=== PATIENT | male | born 1940 | race Caucasian/White ===

== ENCOUNTER 2019-12-25 14:11 | Inpatient (IN) | payer MEDICARE, OTHER ==
--- OUTSIDE RECORDS SUMMARY | 2019-12-25 14:14 | XMS REPORT ---
:1940 Author Organization [facility] t Address [address] [place] [address] Care Team Providers Name Role Phone Unavailable Unavailable Unavailable Problems Condition Condition Condition Status Onset Resolution Last Treatin g Comments Name Details Category Date Date Treatment Clinician Date Abnormal CT Abnormal CT Problem Active scan scan Primary Primary Diagnosis Active insomnia insomnia Floaters Floaters Problem Active Anxiety Anxiety Problem Active Hyperlipide Hyperlipide Problem Active hermila hermila Screening Screening Problem Active PSA PSA (prostate (prostate specific specific antigen) antigen) Blood tests Blood tests Problem Active for routine for routine general general physical physical examination examination Seasonal Seasonal Problem Active allergies allergies [place] of [place] of Problem Active foot foot Hearing Hearing Problem Active loss loss Allergies, Adverse Reactions, Alerts This patient has no known allergies or adverse reactions. Medications Ordered Filled Start Stop Current Ordering Indication Dosage Frequency Signature Comments Components Medication Medication Date Date Medication? Clinician (SIG) Name Name Zyrtec Zyrtec 2019-0 Yes Na Fisher 1 tablet Allergy Allergy 1-15 00:00: 00 Flonase Flonase 2018-0 Yes Na Fisher 2 sprays 1-15 in each 00:00: nostril 00 Mirtazapine Mirtazapine Yes Na Fisher TAKE 1 TABLET BY MOUTH AT BEDTIME Encounters Start End Encounter Admission Attending Care Care Encounter Date/Time Date/Time Type Type Clinicians Facility Department ID 2019-04-19 2019-04-19 [facility] [id number] 10:00:00 10:00:00 [email or web address] [facility] Family Medicine Medicine
--- OUTSIDE RECORDS SUMMARY | 2019-12-25 14:14 | XMS REPORT ---
:1940 Author Organization [employer] Care Team Providers Name Role Phone Fisher, Na Provider Role Unavailable Allergies, Adverse Reactions, Alerts Substance Reaction Event Type N.K.D.A. Info Not Available Non Drug Allergy Problems Problem Type Condition Code Onset Dates Condition Statu s Problem Abnormal CT scan R93.8 Active Problem Primary insomnia F51.01 Active Problem Floaters H43.399 Active Assessment Primary insomnia F51.01 Active Assessment Anxiety F41.9 Active Assessment Hyperlipidemia E78.5 Active Problem Screening PSA (prostate specific Z12.5 Active antigen) Problem Blood tests for routine general Z00.00 Active physical examination Problem Seasonal allergies J30.2 Active Problem Hyperlipidemia E78.5 Active Problem Anxiety F41.9 Active Problem [facility] L84 Active Problem Hearing loss H91.90 Active Medications Medication Code Code Instructions Start End Status Dosage System Date Date Zyrtec Allergy [facility] 43115111285 10 MG Orally Sep 13, Active 1 tablet Once a day 2018 Mirtazapine [facility] 60541323357 7.5 MG Active TAKE 1 TABLET BY MOUTH AT BEDTIME Flonase [facility] [id number] 50 MCG/ACT Sep 13, Active 2 sprays Nasally Once a 2019 in each day nostril Results No Known Results Summary Purpose [employer] Submission
[2019-12-25 15:14] LABS: Absolute Lymphocytes (CBC) 0.6 K/uL (0.7-4.9); Basophils % 0.4 % (0-1.3); Hematocrit 41.2 % (39.6-49.0); Lymphocytes % 9.5 % (15.3-44.8); MPV 9.3 fL (7.6-11.3); RBC Red Blood Cell Count 4.49 M/uL (4.33-5.43)
--- NOTE | 2019-12-25 15:15 | RAD REPORT ---
EXAM DESCRIPTION: RAD - Chest Single View - 12/25/2019 3:10 pm CLINICAL HISTORY: COUGH Chest pain. COMPARISON: Chest Single View dated 09/14/2016 FINDINGS: Portable technique limits examination quality. The lungs are mildly emphysematous but grossly clear. The heart is normal in size. No displaced fract ures. IMPRESSION: No acute intrathoracic process suspected. Mild COPD.
[2019-12-25 15:18] LABS: Protime INR 1.05
[2019-12-25] MEDS ORDERED: ACETAMINOPHEN 500 MG TAB ONE (15:19)
[2019-12-25 16:22] LABS: Albumin 3.5 g/dL (3.4-5.0); Bilirubin Direct 0.2 mg/dL (0-0.2); Bilirubin Total 0.7 mg/dL (0.2-1.0); Ferritin 2365.3 ng/mL (26-388); Potassium 3.9 mmol/L (3.5-5.1); Protein, Total 7.5 g/dL (6.4-8.2); Troponin (Emerg Dept Use Only) 0.02 ng/mL (0.0-0.045)
[2019-12-25] MEDS ORDERED: ENOXAPARIN 80 MG/0.8 ML SQ ONE (16:25)
[2019-12-25] MEDS ORDERED: NA CHLORIDE 0.9% 1,000 ML ONE (16:41)
--- NOTE | 2019-12-25 16:42 | ER ---
Nurse's Notes [facility] Name: Xavier Houser Age: 79 yrs Sex: Male : 1940 Arrival Date: 12/25/2019 Time: 14:14 Bed 16 Private MD: Diagnosis: Fever, unspecified;Atrial fibrillation and flutter Presentation: 12/24 14:21 Chief complaint: Patient's son or daughter states: Grand daughter states:. He has had ca1 fever since 5 days ago. On Wednesday, he was tested for Covid-19 at the [facility] in [place], we called today for the results, it's not back yet. He lives alone, today, I noticed he seem confused and couldn't put his socks on. He did not have cough, SOB. Denies abdominal pain. Denies diarrhea. Denies urinary symptoms. Coronavirus screen: Surgical mask placed on patient. Patient moved to private room, placed in contact and droplet isolation with eye protection until further assessment. Patient denies a cough. Patient denies shortness of breath or difficulty breathing. Patient denies measured and/or subjective temperature greater than 100.4F prior to today's visit. Patient denies travel on a cruise ship or to a country the [facility] currently lists as an affected area. Patient denies contact with known and/or suspected case of COVID-19. Ebola Screen: Patient negative for fever greater than or equal to 101.5 degrees Fahrenheit, and additional compatible Ebola Virus Disease symptoms Patient denies exposure to infectious person. Patient denies travel to an Ebola-affected area in the 21 days before illness onset. No symptoms or risks identified at this time. Initial Sepsis Screen: Does the patient meet any 2 criteria? Temp <36.0*C (96.8*F)) or > 38.3*C (100.9*F). Altered Mental Status. Yes. Risk Assessment: Do you want to hurt yourself or someone else? Patient reports no desire to harm self or others. Onset of symptoms was December 25, 2019. 14:21 Method Of Arrival: Wheelchair ca1 14:21 Acuity: DAISY 2 ca1 14:21 Initial Sepsis Screen: Does the patient have a suspected source of infection? Yes:. aa5 Triage Assessment: 15:27 General: Appears uncomfortable, Behavior is cooperative, flat, quiet. Pain: Denies pain.ls4 Historical: - Allergies: 14:27 mushrooms; ca1 - Home Meds: 14:27 None [Active]; ca1 - PMHx: 14:27 None; ca1 - PSHx: 14:27 kidney surgery; ca1 - Immunization history:: Adult Immunizations up to date, Pneumococcal vaccine is up to date, Flu vaccine is up to date. - Social history:: Smoking status: Patient denies any tobacco usage or history of. Screenin:24 Abuse screen: Denies threats or abuse. Denies injuries from another. Nutritional ls4 screening: No deficits noted. Tuberculosis screening: No symptoms or risk factors identified. Fall Risk None identified. Assessment: 14:30 Reassessment: [phone]. Lula, grand daughter. ca1 Vital Signs: 14:27 BP 118 / 74; Pulse 120; Resp 27 S; Temp 100.1(O); Pulse Ox 98% on R/A; Weight 72.57 kg aa5 (R); Height 5 ft. 6 in. (167.64 cm); Pain 0/10; 15:23 BP 132 / 85; Pulse 122; Resp 34; Temp 102.7(O); Pulse Ox 99% on R/A; Pain 0/10; ls4 16:00 BP 126 / 78; Pulse 109; Resp 14; Temp 101.1; Pulse Ox 99% on R/A; Pain 0/10; ls4 16:30 BP 127 / 77; Pulse 113; Resp 36; Pulse Ox 99% on R/A; Pain 0/10; ls4 17:38 BP 106 / 70; Pulse 105; Resp 34; Temp 99.8; Pulse Ox 97% on R/A; Pain 0/10; ls4 14:27 Body Mass Index 25.82 (72.57 kg, 167.64 cm) aa5 ED Course: 14:14 Patient arrived in ED. ag5 14:27 Triage completed. ca1 14:27 Arm band placed on right wrist. ca1 14:27 Patient has correct armband on for positive identification. Bed in low position. Call ls4 light in reach. Side rails up X 1. signals intelligence analysis manager on. Pulse ox on. NIBP on. Warm blanket given. Verbal reassurance given. 14:27 No provider procedures requiring assistance completed. Inserted saline lock: 22 gauge ls4 in left antecubital area, using aseptic technique. Blood collected. 14:30 Luisa Ramon [facility]NP-C [facility]. snw 14:30 Mike Webber MD is Attending Physician. snw 15:03 Carmelita Ramires, REENA is Primary Nurse. ls4 15:10 CXR XRAY In Process Unspecified. EDMS 15:11 Blood Culture Adult (2) Sent. ls4 15:20 Initial lab(s) drawn, by ED staff, sent to lab. Inserted saline lock: 20 gauge in right ls4 antecubital area, using aseptic technique. Blood collected. Patient maintains SpO2 saturation greater than 95% on room air. 15:48 Throat Culture Sent. ls4 16:10 Notified Nurse Practitioner and/or Physician Fmd Teacher of a critical lab result(s), ls4 [id number] [id number] TO LUISA HATCH. 16:41 Alvin Blackman MD is Hospitalizing Provider. snw 17:14 CT Chest For PE Angio Sent. ls4 17:19 CT Chest For PE Angio In Process Unspecified. EDMS Administered Medications: 15:00 Drug: Tylenol 1000 mg Route: PO; snw 16:00 Follow up: BP 126 / 78; Pulse 109 bpm; Resp 14 bpm; Temp 101.1; Pulse Ox 99% RA; Pain ls4 0/10 Adult 16:11 Drug: Lovenox 70 mg Route: Sub-Q; Site: left lower abdomen; ls4 16:30 Follow up: Response: No adverse reaction ls4 16:32 Drug: NS 0.9% 1000 ml Route: IV; Rate: 125 ml/hr; Site: right antecubital; ls4 17:30 Drug: NS 0.9% 500 ml Volume: 500 ml; Route: IV; Rate: 1 bolus; Site: left antecubital; ls4 Outcome: 16:42 Decision to Hospitalize by Provider. snw 21:00 Patient left the ED. mg2 Signatures: Dispatcher [employer] EDMS Luisa Ramon FNP-C ARTIST'S MODEL-Csnw Terese Quiñonez RN RN aa5 Martín Buitrago RN RN mg2 Carmelita Ramires RN RN ls4 Tena Chahal RN RN ca1 Cr Dee 5 Corrections: (The following items were deleted from the chart) 14:45 14:21 Chief complaint: Patient's son or daughter states: Grand daughter states:. He has ca1 had fever since 5 days ago. On Wednesday, he was tested for Covid-19 at the [facility] in [place], we called today for the results, it's not back yet. He lives alone, today, I noticed he seem confuse and couldn't put his socks on. He did not have cough, SOB. Denies abdominal pain. Denies diarrhea. Denies urinary symptoms ca1 15:27 15:23 BP 132 / 85; Pulse 122bpm; Resp 14bpm; Pulse Ox 99% RA; Temp 102.7F Oral; Pain ls4 0/10; ls4 15:59 14:27 BP 118 / 74; Pulse 55bpm; Resp 17bpm; Spontaneous; Pulse Ox 98% RA; Temp 100.1F aa5 Oral; 72.57 kg Reported; Height 5 ft. 6 in.; BMI: 25.8; Pain 0/10; ca1
--- NOTE | 2019-12-25 16:42 | EDPHYS ---
Physician Documentation [facility] Name: Xavier Houser Age: 79 yrs Sex: Male : 1940 Arrival Date: 12/25/2019 Time: 14:14 Bed 16 Private MD: ED Physician Mike Webber HPI: 12/24 16:19 This 79 yrs old Male presents to ER via Wheelchair with complaints of Fever, snw Disoriented. 16:19 The patient reports fever, that was measured at 102.7 degrees Fahrenheit. Onset: The snw symptoms/episode began/occurred gradually, 5 day(s) ago, and became persistent. Associated signs and symptoms: Pertinent positives: altered mental status,\E\. Severity of symptoms: At their worst the symptoms were moderate in the emergency department the symptoms are unchanged. The patient has not experienced similar symptoms in the past. Covid testing per [facility] grounds 3 days ago. Historical: - Allergies: 14:27 mushrooms; ca1 - Home Meds: 14: None [Active]; ca1 - PMHx: 14: None; ca1 - PSHx: 14:27 kidney surgery; ca1 - Immunization history:: Adult Immunizations up to date, Pneumococcal vaccine is up to date, Flu vaccine is up to date. - Social history:: Smoking status: Patient denies any tobacco usage or history of. ROS: 16:18 Eyes: Negative for injury, pain, redness, and discharge, ENT: Negative for injury, snw pain, and discharge, Neck: Negative for injury, pain, and swelling, Cardiovascular: Negative for chest pain, palpitations, and edema, Respiratory: Negative for shortness of breath, cough, wheezing, and pleuritic chest pain, Abdomen/GI: Negative for abdominal pain, nausea, vomiting, diarrhea, and constipation, Back: Negative for injury and pain, : Negative for injury, bleeding, discharge, and swelling. 16:18 Skin: Negative for injury, rash, and discoloration. 16:18 Constitutional: Positive for body aches, fatigue, fever, malaise, poor PO intake. 16:18 MS/extremity: Positive for generalized weakness. 16:18 Neuro: Positive for altered mental status, per Family report. Exam: 16:16 Head/Face: Normocephalic, atraumatic. Eyes: Pupils equal round and reactive to light, snw extra-ocular motions intact. Lids and lashes normal. Conjunctiva and sclera are non-icteric and not injected. Cornea within normal limits. Periorbital areas with no swelling, redness, or edema. ENT: Nares patent. No nasal discharge, no septal abnormalities noted. Tympanic membranes are normal and external auditory canals are clear. Oropharynx with no redness, swelling, or masses, exudates, or evidence of obstruction, uvula midline. Mucous membranes moist. Neck: Trachea midline, no thyromegaly or masses palpated, and no cervical lymphadenopathy. Supple, full range of motion without nuchal rigidity, or vertebral point tenderness. No Meningismus. Chest/axilla: Normal chest wall appearance and motion. Nontender with no deformity. No lesions are appreciated. 16:16 Abdomen/GI: Soft, non-tender, with normal bowel sounds. No distension or tympany. No guarding or rebound. No evidence of tenderness throughout. Back: No spinal tenderness. No costovertebral tenderness. Full range of motion. Skin: Warm, dry with normal turgor. Normal color with no rashes, no lesions, and no evidence of cellulitis. MS/ Extremity: Pulses equal, no cyanosis. Neurovascular intact. Full, normal range of motion. Neuro: Awake and alert, GCS 15, oriented to person, place, time, and situation. Cranial nerves II-XII grossly intact. Motor strength 5/5 in all extremities. Sensory grossly intact. Cerebellar exam normal. Normal gait. Psych: Awake, alert, with orientation to person, place and time. Behavior, mood, and affect are within normal limits. 16:16 Constitutional: The patient appears alert, awake, febrile, frail, uncomfortable. 16:16 Cardiovascular: Rate: tachycardic, Rhythm: irregularly irregular, Pulses: no pulse deficits are appreciated, Heart sounds: murmur, systolic, grade 2 over 6, heard in the mitral area, Edema: is not appreciated. 16:16 Respiratory: the patient does not display signs of respiratory distress, Respirations: shallow respirations, tachypnea, Breath sounds: are clear throughout, Respiratory rate: 34 Vital Signs: 14:27 BP 118 / 74; Pulse 120; Resp 27 S; Temp 100.1(O); Pulse Ox 98% on R/A; Weight 72.57 kg aa5 (R); Height 5 ft. 6 in. (167.64 cm); Pain 0/10; 15:23 BP 132 / 85; Pulse 122; Resp 34; Temp 102.7(O); Pulse Ox 99% on R/A; Pain 0/10; ls4 16:00 BP 126 / 78; Pulse 109; Resp 14; Temp 101.1; Pulse Ox 99% on R/A; Pain 0/10; ls4 16:30 BP 127 / 77; Pulse 113; Resp 36; Pulse Ox 99% on R/A; Pain 0/10; ls4 17:38 BP 106 / 70; Pulse 105; Resp 34; Temp 99.8; Pulse Ox 97% on R/A; Pain 0/10; ls4 14:27 Body Mass Index 25.82 (72.57 kg, 167.64 cm) aa5 MDM: 15:25 Patient medically screened. snw 16:18 Data reviewed: vital signs, nurses notes. Data interpreted: Pulse oximetry: on room air snw is 99 %. Interpretation: normal. Counseling: I had a detailed discussion with the patient and/or guardian regarding: the historical points, exam findings, and any diagnostic results supporting the discharge/admit diagnosis, lab results, radiology results, the need for further work-up and treatment in the hospital. 16:42 Physician consultation: Alvin Blackman MD was called at 16:42, was contacted at 16:42, snw regarding admission, to the telemetry unit. would like further tests performed, CT scan. 12/24 14:51 Order name: Blood Culture Adult (2) bp 12/24 14:51 Order name: BMP; Complete Time: 16:35 bp 12/24 14:51 Order name: C-Reactive Protein; Complete Time: 16:35 bp 12/24 14:51 Order name: CBC with Diff; Complete Time: 15:24 bp 12/24 14:51 Order name: COVID-19; Complete Time: 16:04 bp 12/24 14:51 Order name: D-Dimer; Complete Time: 16:13 bp 12/24 14:51 Order name: Ferritin; Complete Time: 16:35 bp 12/24 14:51 Order name: Flu; Complete Time: 15:47 bp 12/24 14:51 Order name: Lactate; Complete Time: 16:11 bp 12/24 14:51 Order name: LFT's; Complete Time: 16:35 bp 12/24 14:51 Order name: Lipase; Complete Time: 16:35 bp 12/24 14:51 Order name: Procalcitonin; Complete Time: 16:11 bp 12/24 14:51 Order name: PT-INR; Complete Time: 16:13 bp 12/24 14:51 Order name: Ptt, Activated; Complete Time: 16:13 bp 12/24 14:51 Order name: Strep; Complete Time: 15:47 bp 12/24 14:51 Order name: Troponin (emerg Dept Use Only); Complete Time: 16:35 bp 12/24 14:51 Order name: Urine Microscopic Only; Complete Time: 07:13 bp 12/24 14:53 Order name: Blood Culture [facility] 12/24 15:28 Order name: Throat Culture [facility] 12/24 16:07 Order name: Urine Culture sn 12/24 17:51 Order name: Vancomycin Level Trough [facility] 12/24 17:52 Order name: CBC with Automated Diff [facility] 12/24 17:52 Order name: CBC with Automated Diff; Complete Time: 07:13 [facility] 12/24 17:52 Order name: Comprehensive Metabolic Panel [facility] 12/24 17:52 Order name: Comprehensive Metabolic Panel; Complete Time: 07:13 [facility] 12/24 17:52 Order name: Troponin I [facility] 12/24 17:52 Order name: Troponin I; Complete Time: 07:13 [facility] 12/24 17:52 Order name: Troponin I [facility] 12/24 17:52 Order name: Troponin I [facility] 12/24 17:52 Order name: Urine Dipstick--Ancillary (enter results); Complete Time: 07:13 em1 12/24 14:51 Order name: CXR XRAY; Complete Time: 15:24 bp 12/24 14:51 Order name: EKG; Complete Time: 14:53 bp 12/24 14:51 Order name: Cardiac monitoring; Complete Time: 15:11 bp 12/24 14:51 Order name: Document PUI#; Complete Time: 15:11 bp 12/24 14:51 Order name: Droplet/Contact Precautions; Complete Time: 15:14 bp 12/24 14:51 Order name: EKG - Nurse/Tech; Complete Time: 15:11 bp 12/24 14:51 Order name: Mcneil; Complete Time: 17:36 bp 12/24 14:51 Order name: IV Start; Complete Time: 15:11 bp 12/24 14:51 Order name: Labs collected and sent; Complete Time: 17:37 bp 12/24 14:51 Order name: [facility] [phone]/ ; Complete Time: 17:37 bp 12/24 14:51 Order name: O2 Per Protocol; Complete Time: 15:14 bp 12/24 14:51 Order name: O2 Sat Monitoring; Complete Time: 15:11 bp 12/24 14:51 Order name: Urine Dipstick-Ancillary (obtain specimen); Complete Time: 17:36 bp 12/24 16:40 Order name: CT Chest For PE Angio; Complete Time: 07:13 snw 12/24 17:51 Order name: CONS Pharmacy Consult EDMS 12/24 17:51 Order name: Full Liquid EDMS 12/24 18:36 Order name: CONS Pharmacy Consult EDMS Administered Medications: 15:00 Drug: Tylenol 1000 mg Route: PO; snw 16:00 Follow up: BP 126 / 78; Pulse 109 bpm; Resp 14 bpm; Temp 101.1; Pulse Ox 99% RA; Pain ls4 0/10 Adult 16:11 Drug: Lovenox 70 mg Route: Sub-Q; Site: left lower abdomen; ls4 16:30 Follow up: Response: No adverse reaction ls4 16:32 Drug: NS 0.9% 1000 ml Route: IV; Rate: 125 ml/hr; Site: right antecubital; ls4 17:30 Drug: NS 0.9% 500 ml Volume: 500 ml; Route: IV; Rate: 1 bolus; Site: left antecubital; ls4 Disposition: 12/25 07:12 Co-signature as Attending Physician, Mike Webber MD. rn Disposition: 12/25/19 16:42 Hospitalization ordered by Alvin Blackman for Inpatient Admission. Preliminary diagnosis are Fever, unspecified, Atrial fibrillation and flutter. - Bed requested for Telemetry/MedSurg (Inpatient). - Status is Inpatient Admission. mg2 - Condition is Stable. - Problem is new. - Symptoms have worsened. Signatures: Dispatcher [employer] EDMS Gala Brennan, RN RN dw Keila Ramon, BABY STROLLER RENTAL CLERK-C BABY STROLLER RENTAL CLERK-Csnw Mike Webber MD MD rn Red Pearson, RN RN bp Martín Buitrago, REENA RN mg2 Carmelita Ramires, RN RN ls4 Tena Chahal, RN RN ca1 Corrections: (The following items were deleted from the chart) 12/24 19:29 16:42 Hospitalization Ordered by Alvin Blackman MD for Inpatient Admission. Preliminary dw diagnosis is Fever, unspecified; Atrial fibrillation and flutter. Bed requested for Telemetry/MedSurg (Inpatient). Status is Inpatient Admission. Condition is Stable. Problem is new. Symptoms have worsened. snw 21:00 19:29 12/25/2019 16:42 Hospitalization Ordered by Alvin Blackman MD for Inpatient mg2 Admission. Preliminary diagnosis is Fever, unspecified; Atrial fibrillation and flutter. Bed requested for Telemetry/MedSurg (Inpatient). Status is Inpatient Admission. Condition is Stable. Problem is new. Symptoms have worsened. dw
[2019-12-25] MEDS ORDERED: ALBUTEROL 2.5 MG/3 ML NEB SOL NEB PRN (17:47)
[2019-12-25] MEDS ORDERED: GUAIFENESIN/DM 5 ML UCUP PO PRN (17:47)
[2019-12-25] MEDS ORDERED: HYDRALAZINE HCL 20 MG/ML VIAL IV PRN (17:47)
[2019-12-25] MEDS ORDERED: ONDANSETRON 4 MG/2 ML VIAL IV PRN (17:47)
[2019-12-25] MEDS ORDERED: Oxycodone HCl/Acetaminophen 1 TAB TAB PO PRN (17:47)
[2019-12-25] MEDS ORDERED: MORPHINE 2 MG/ML SYR IV PRN (17:49)
--- NOTE | 2019-12-25 17:58 | RAD REPORT ---
EXAM DESCRIPTION: CT - Chest For Pe Angio - 12/25/2019 5:18 pm CLINICAL HISTORY: Chest pain. FEVER COMPARISON: Thorax Wo Con dated 09/15/2016Thorax Wo Con dated 09/15/2016 TECHNIQUE: CT angiogram of the pulmonary arteries was performed with MIP. All CT scans are performed using dose optimization technique as appropriate and may include automated exposure control or mA/KV adjustment according to patient size. FINDINGS: No evidence of pulmonary thromboembolism. No acute aortic finding demonstrated. The lungs are mildly emphysematous without focal infiltrate. Pleural plaquing is present which is calcified bilaterally compatible with prior asbestos exposure. No concerning bony finding. Cholelithiasis. IMPRESSION: No evidence of pulmonary thromboembolism. Evidence of prior asbestos exposure. Cholelithiasis.
[2019-12-25] MEDS: AZITHROMYCIN IV 500 MG in NA CHLORIDE 0.9% 250 ML IVPB SCH (18:00)
[2019-12-25 18:23] LABS: Urine Blood 1+ (NEG); Urine Glucose NEGATIVE (NEG); Urine Protein 2+ (NEG); Urine pH 6.5 (5.0-7.0)
--- NOTE | 2019-12-25 20:11 | EKG ---
Test Date: 2019-12-25 Test Time: 14:52:25 Project Reservoir Engineer: NOEMÍ MEASUREMENT RESULTS: Intervals: Rate: 113 PA: QRSD: 90 QT: 322 QTc: 441 [place]: P: PA: QRS: 3 T: 49 INTERPRETIVE STATEMENTS: Atrial fibrillation with rapid ventricular response with premature ventricular or aberrantly conducted complexes Abnormal ECG Compared to ECG 09/14/2016 23:15:50 Ventricular premature complex(es) now present Sinus rhythm no longer present First degree AV block no longer present ST (T wave) deviation no longer present Electronically Signed On 12-25-19 20:10:52 CDT by Mike Green
--- NOTE | 2019-12-25 21:12 | P.HP ---
Certification for Inpatient Patient admitted to: Inpatient With expected LOS: >2 Midnights Practitioner: I am a practitioner with admitting privileges, knowledge of patient current condition, hospital course, and medical plan of care. Services: Services provided to patient in accordance with Admission requirements found in Title 42 Section 412.3 of the Code of Federal Regulations Patient History Date of Service: 12/25/19 Reason for admission: Fever and altered mental status History of Present Illness: 79-year-old gentleman with a history of nephrolithiasis was brought to the emergency department due to an episode of altered mental status and fever. Per report, patient have had fever for 5 days. No report of cough or shortness of breath. He was tested for Covid 19 in [facility] but the test result is not in yet. UA in the ED is pending. CTA thorax shows no evidence of pulmonary embolism or infiltrate. No leukocytosis but inflammatory markers-C. reactive protein and ferritin are significantly elevated. Patient is admitted for further management of altered mental status and fever. Allergies mushroom Allergy (Verified 12/26/19 01:51) Anaphylaxis Home Medications: NK [No Home Meds] 12/26/19 - Past Medical/Surgical History Diabetic: No -: Nephrolithiasis -: Right ureter repair Psychosocial/ Personal History: , has 6 children. 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 - Family History Family History: Reviewed- Non-Contributory - Family History Mother -: Stroke - Social History Alcohol use: Yes CD- Drugs: No Caffeine use: Yes Review of Systems is unable to be obtained (Due to AMS) Physical Examination - Physical Exam General: Confused HEENT: Atraumatic, Normocephalic Neck: Supple Respiratory: Clear to auscultation bilaterally, Normal air movement Cardiovascular: No edema, Regular rate/rhythm, Normal S1 S2 Gastrointestinal: Normal bowel sounds, Soft and benign, No tenderness Musculoskeletal: No swelling Integumentary: No rashes Neurological: Other (Confused. Nonfocal.) Urinary: Mcneil catheter - Studies Laboratory Data (last 24 hrs) 12/25/19 14:44: PT 12.4, INR 1.05, APTT 29.2 12/25/19 14:44: WBC 6.6, Hgb 14.4, Hct 41.2, Plt Count 148 L 12/25/19 14:44: Sodium 129 L, Potassium 3.9, BUN 11, Creatinine 1.02, Glucose 138 H, Total Bilirubin 0.7, AST 39 H, ALT 28, Alkaline Phosphatase 92, Lipase 27 L Microbiology Data (last 24 hrs): 12/25/19 14:45 Nasopharnyx Coronavirus COVID-19 PCR - Final 12/25/19 14:45 Nasopharnyx Influenza Type A Antigen Screen - Final 12/25/19 14:45 Nasopharnyx Influenza Type B Antigen Screen - Final 12/25/19 14:45 Throat Group A Streptococcus Rapid Screen - Final Assessment and Plan - Problems (Diagnosis) (1) Metabolic encephalopathy Current Visit: Yes Status: Acute (2) Fever Current Visit: Yes Status: Acute (3) Hyponatremia Current Visit: Yes Status: Acute - Plan Admit to the medical floor. Droplet precautions Test for Covid 19 obtained. Consider lumbar puncture once Covid test result is in. Empiric IV Rocephin b.i.d. Zithromax and vancomycin Follow UA and cultures. Neurochecks. - Advance Directives Does patient have a Living Will: No Does patient have a Durable POA for Healthcare: No
[2019-12-25] MEDS: VANCOMYCIN 1.25 GM in NA CHLORIDE 0.9% 250 ML IVPB SCH (22:17)
[2019-12-25] MEDS: Ringers Lactate 1,000 ML IV SCH (22:17)
[2019-12-25] MEDS: ATORVASTATIN 10 MG TAB PO SCH (22:21)
[2019-12-25] MEDS: CEFTRIAXONE/SWI 1gm 1 GM/10 ML SYR IV SCH (22:21)
[2019-12-26] MEDS ORDERED: HEPARIN 5000 UNIT/ML 1 ML VIAL SQ SCH (01:00)
[2019-12-26 02:13] VITALS: BMI 25.8
[2019-12-26 04:00] LABS: Urine Culture Reflex Order NOT NEEDED
[2019-12-26 04:02] LABS: Urine Bacteria <20 /HPF (NONE SEEN); Urine RBC <5 /HPF (NONE SEEN)
[2019-12-26 04:25] LABS: Absolute Lymphocytes (CBC) 0.4 K/uL (0.7-4.9); Basophils % 0.3 % (0-1.3); Hematocrit 38.6 % (39.6-49.0); Lymphocytes % 7.6 % (15.3-44.8); MPV 8.9 fL (7.6-11.3); RBC Red Blood Cell Count 4.21 M/uL (4.33-5.43)
[2019-12-26 04:36] LABS: Albumin 2.9 g/dL (3.4-5.0); Bilirubin Total 0.6 mg/dL (0.2-1.0); Potassium 3.5 mmol/L (3.5-5.1); Protein, Total 6.4 g/dL (6.4-8.2); Troponin I 0.09 ng/mL (0.0-0.045)
[2019-12-26 05:09] LABS: Blood Morphology Comment NOT SEEN (NOT SEEN); Platelet Estimate ADEQ
[2019-12-26] MEDS ORDERED: PNEUMOCOCCAL VACCINE 0.5 ML IMVAC ONE (08:00)
--- NOTE | 2019-12-26 08:01 | P.PN ---
Subjective Date of Service: 12/26/19 Chief Complaint: Fever and altered mental status Patient is currently awake, more interactive and has no new complaint. He denies cough or shortness of breath. He denies diarrhea or abdominal pain. UA shows no evidence of UTI. CTA thorax shows no infiltrate. He has bandemia. Physical Examination - Vital Signs Temperature: 98.6 F Blood Pressure: 130/52 Pulse: 88 Respirations: 20 Pulse Ox (%): 93 - Physical Exam General: In no apparent distress, Other (Awake) HEENT: Normocephalic Neck: Supple Respiratory: Clear to auscultation bilaterally, Normal air movement Cardiovascular: No edema, Regular rate/rhythm, Normal S1 S2 Capillary refill: <2 Seconds Gastrointestinal: Normal bowel sounds, Soft and benign, No tenderness Musculoskeletal: No swelling, No erythema Integumentary: No rashes - Studies Laboratory Data (last 24 hrs) 12/25/19 14:44: PT 12.4, INR 1.05, APTT 29.2 12/25/19 14:44: WBC 6.6, Hgb 14.4, Hct 41.2, Plt Count 148 L 12/25/19 14:44: Sodium 129 L, Potassium 3.9, BUN 11, Creatinine 1.02, Glucose 138 H, Total Bilirubin 0.7, AST 39 H, ALT 28, Alkaline Phosphatase 92, Lipase 27 L Microbiology Data (last 24 hrs): 12/25/19 14:45 Nasopharnyx Coronavirus COVID-19 PCR - Final 12/25/19 14:45 Nasopharnyx Influenza Type A Antigen Screen - Final 12/25/19 14:45 Nasopharnyx Influenza Type B Antigen Screen - Final 12/25/19 14:45 Throat Group A Streptococcus Rapid Screen - Final Assessment And Plan - Current Problems (Diagnosis) (1) Metabolic encephalopathy Current Visit: Yes Status: Acute (2) Fever Current Visit: Yes Status: Acute (3) Hyponatremia Current Visit: Yes Status: Acute - Plan Fever of unknown etiology. Covid 19 is negative. Continue empiric IV Rocephin b.i.d. Zithromax and vancomycin Follow cultures. PT and OT evaluations. Advanced diet as tolerated.
[2019-12-26] MEDS: ENOXAPARIN 40 MG/0.4 ML SQ SCH (08:23)
[2019-12-26] MEDS: PANTOPRAZOLE 40MG TABLET PO SCH ×2 (08:23→17:50)
[2019-12-26] MEDS: Ringers Lactate 1,000 ML IV SCH (08:26)
[2019-12-26] MEDS ORDERED: CEFTRIAXONE 1 GM/NS 50 ML 1 GM/50 ML BAG IV SCH (09:00)
[2019-12-26] MEDS ORDERED: ASPIRIN EC 81 MG TAB PO SCH (09:00)
[2019-12-26] MEDS: ACETAMINOPHEN 500 MG TAB PO PRN ×2 (10:16→14:29)
--- NOTE | 2019-12-26 13:26 | P.PN ---
Date of Service: 12/26/19 Spoke with patient's family, labs reviewed, Still bandemia, more awake and conversant today but still recurrent fever - continue antibiotics, will scheduled patient for lumbar puncture in a.m., hold aspirin
[2019-12-26] MEDS ORDERED: ALBUTEROL 2.5 MG/3 ML NEB SOL NEB PRN (17:00)
[2019-12-26] MEDS: AZITHROMYCIN IV 500 MG in NA CHLORIDE 0.9% 250 ML IVPB SCH (17:50)
[2019-12-26] MEDS: CEFTRIAXONE/SWI 1gm 1 GM/10 ML SYR IV SCH (20:08)
[2019-12-26] MEDS: VANCOMYCIN 1.25 GM in NA CHLORIDE 0.9% 250 ML IVPB SCH (20:08)
[2019-12-26] MEDS: ATORVASTATIN 10 MG TAB PO SCH (20:09)
[2019-12-27] MEDS: ACETAMINOPHEN 500 MG TAB PO PRN ×3 (00:47→22:02)
[2019-12-27] MEDS: Ringers Lactate 1,000 ML IV SCH (01:36)
[2019-12-27 04:32] LABS: Absolute Lymphocytes (CBC) 0.5 K/uL (0.7-4.9); Basophils % 0.3 % (0-1.3); Hematocrit 34.6 % (39.6-49.0); Lymphocytes % 18.6 % (15.3-44.8); MPV 9.9 fL (7.6-11.3); RBC Red Blood Cell Count 3.85 M/uL (4.33-5.43)
[2019-12-27 04:56] LABS: BUN Blood Urea Nitrogen 14 mg/dL (7-18); Bicarbonate 24 mmol/L (21-32); Glucose Level 119 mg/dL (74-106); Sodium Level 133 mmol/L (136-145); Troponin I 0.14 ng/mL (0.0-0.045)
--- NOTE | 2019-12-27 06:52 | EKG ---
Test Date: 2019-12-25 Test Time: 14:53:31 Compensation Specialist: NOEMÍ MEASUREMENT RESULTS: Intervals: Rate: 120 RI: QRSD: 90 QT: 318 QTc: 449 [place]: P: RI: QRS: 1 T: 29 INTERPRETIVE STATEMENTS: Atrial fibrillation with rapid ventricular response Abnormal ECG Compared to ECG 12/25/2019 14:52:25 Ventricular premature complex(es) no longer present Electronically Signed On 12-27-19 06:49:26 CDT by Mike Green
[2019-12-27] MEDS: ENOXAPARIN 40 MG/0.4 ML SQ SCH (09:00)
[2019-12-27] MEDS: NS KCL 20MEQ 20 MEQ/1,000 ML BAG IV SCH ×2 (09:24→21:18)
[2019-12-27] MEDS: PANTOPRAZOLE 40MG TABLET PO SCH ×2 (09:27→17:44)
[2019-12-27] MEDS ORDERED: POTASSIUM PHOS 20 MM in NA CHLORIDE 0.9% 500 ML IV ONE (09:49)
[2019-12-27] MEDS ORDERED: POTASSIUM CL 40 MEQ in NA CHLORIDE 0.9% 500 ML IV SCH (10:00)
--- NOTE | 2019-12-27 10:40 | P.PN ---
Subjective Date of Service: 12/27/19 Chief Complaint: Fever and altered mental status Patient is complaining of chills. He is experiencing intermittent low grade fever. Physical Examination - Vital Signs Temperature: 98.6 F Blood Pressure: 130/52 Pulse: 88 Respirations: 20 Pulse Ox (%): 93 - Physical Exam General: Alert, In no apparent distress HEENT: Mucous membr. moist/pink Neck: Supple Respiratory: Clear to auscultation bilaterally, Normal air movement Cardiovascular: Normal pulses, Regular rate/rhythm, Normal S1 S2 Gastrointestinal: Normal bowel sounds, Soft and benign, No tenderness Musculoskeletal: No swelling, No erythema Integumentary: No rashes Neurological: Other (Nonfocal.) - Studies Microbiology Data (last 24 hrs): 12/25/19 14:45 Throat Culture & Sensitivity - Final NORMAL UPPER RESPIRATORY LIZZ GROWN. Assessment And Plan - Current Problems (Diagnosis) (1) Metabolic encephalopathy Current Visit: Yes Status: Acute (2) Fever Current Visit: Yes Status: Acute (3) Hyponatremia Current Visit: Yes Status: Acute - Plan Fever of unknown etiology. Covid 19 is negative. Continue empiric IV Rocephin b.i.d. Zithromax and vancomycin. Lumbar puncture performed yesterday. CSF studies and culture are pending. Follow cultures. PT and OT. Advanced diet as tolerated. Replete potassium.
--- NOTE | 2019-12-27 12:26 | RAD REPORT ---
EXAM DESCRIPTION: RAD - Lumbar Puncture For Dx - 12/27/2019 12:16 pm CLINICAL HISTORY: fever , confusion Headache, fever COMPARISON: No comparisons TECHNIQUE: The procedure, risks and alternatives to the procedure were discussed with the patient in detail. After answering all questions, both oral and written consent were obtained. Time-out procedu re was performed. The patient was placed in an oblique prone position on the fluoroscopic table. The skin of the lower back was prepped and draped in the usual sterile fashion. After anesthetizing the skin and deeper sof t tissues with 1% lidocaine, a 22 gauge needle was advanced into the thecal sac at the L3-4 level. 13 cc of clear CSF were obtained and sent for requested lab studies. At the conclusion of the procedure the needle was withdrawn and a sterile bandage placed over the pun cture site. The patient tolerated the procedure well without immediate complications. Total fluoro time: 0.5 minutes Images obtained: 2 IMPRESSION: Successful fluoroscopic guided lumbar puncture. All obtained fluid was sent to the lab f or studies requested by the referring physician.
[2019-12-27 12:39] LABS: Appearance CLEAR (CLEAR); Body Fluid Source CSF; Color of fluid Colorless (COLORLESS)
[2019-12-27 12:40] LABS: Body Fluid WBC 0 /mm^3; CSF Glucose 63 mg/dL (40-70)
--- NOTE | 2019-12-27 13:56 | P.PN ---
Date of Service: 12/27/19 more awake today , reportednew atrial fibe with elevated HR - will obtain mg, TSH , start Topriol and adjust - will possible need anticoaglation but hold for now since LP today -cardiac consult - continue antibiotics, will scheduled patient for lumbar puncture in a.m., hold aspirin
[2019-12-27] MEDS: METOPROLOL XL 50 MG TAB PO SCH ×2 (14:22→18:00)
[2019-12-27 14:46] LABS: Magnesium 1.9 mg/dL (1.8-2.4); Thyroid Stimulating Hormone 1.26 uIU/mL (0.360-3.740)
[2019-12-27] MEDS ORDERED: IBUPROFEN 400 MG TAB PO ONE (16:00)
[2019-12-27] MEDS: AZITHROMYCIN IV 500 MG in NA CHLORIDE 0.9% 250 ML IVPB SCH (17:44)
--- NOTE | 2019-12-27 18:07 | EKG ---
Test Date: 2019-12-27 Test Time: 00:49:33 Costume Maker: RT-O MEASUREMENT RESULTS: Intervals: Rate: 131 [place]: QRSD: 90 QT: 274 QTc: 404 [place]: P: [place]: QRS: -3 T: 53 INTERPRETIVE STATEMENTS: Atrial fibrillation with rapid ventricular response Abnormal ECG Compared to ECG 12/25/2019 14:53:31 No significant changes Electronically Signed On 12-27-19 18:06:27 CDT by Mike Green
[2019-12-27] MEDS: VANCOMYCIN 1.25 GM in NA CHLORIDE 0.9% 250 ML IVPB SCH (20:44)
[2019-12-27] MEDS: CEFTRIAXONE/SWI 1gm 1 GM/10 ML SYR IV SCH (20:45)
[2019-12-27] MEDS: ATORVASTATIN 10 MG TAB PO SCH (20:46)
[2019-12-27] MEDS ORDERED: METOPROLOL XL 25 MG TAB PO SCH (21:00)
--- NOTE | 2019-12-27 23:30 | CON ---
Date of Consultation: 12/27/2019 The patient admitted on 12/25/2019. I saw the patient on 12/27/2019. Reason For Consultation: New-onset atrial fibrillation. History Of Present Illness: Mr. Houser is an 79-year-old with no previous past medical history who came in with fever, sepsis, altered mental status that had been going on for 5 days. He has had an e xtensive workup including a chest x-ray, which shows COPD; CT angiogram, which was negative. He had a lumbar puncture, the results of which remain pending. He is on multiple antibiotics including vanc omycin, Rocephin and Zithromax. His potassium was 3.0 and that was being supplemented. While he was being treated, he went into atrial fibrillation, rate of 130 to 150 without any hemodynamic compromi se. His blood pressure was adequate. Denied any syncope or chest pain. Past Medical History: Negative. Allergies: NONE. Medications: At home were none. Review of Systems: Negative. Social History: Negative. Family History: Noncontributory. Physical Examination: General: He is afebrile. Vital Signs: Stable. Atrial fibrillation at a rate of 130. HEENT: Negative. Neck: Supple with no bruit. Chest: Clear. Cardiac: Atrial fibrillation. No murmurs, gallops, or rubs. Abdomen: Benign. Extremities: No clubbing, cyanosis, or edema. Diagnostic Data: White count was 2.7, potassium 3.0, troponin of 0.14. CRP was 127. Ferritin was 2 365. D-dimer was 5897. EKG showed atrial fibrillation. Chest x-ray shows COPD. CT angiogram was n egative. In 2017, an echocardiogram and a carotid Doppler were both negative. Impression And Plan: 1.Atrial fibrillation, new onset, I think I would treat him with metoprolol 50 mg p.o. b.i.d. Sarah nue the Lovenox. Get an echocardiogram on him, supplemented potassium. We will make a decision late r as far as anticoagulation after we are ready for him to go home. We will see what the echocardiogr am shows in that regard. If the beta robert does not work, we should consider putting him on Betapa ce 80 b.i.d. Hopefully, after we treat his sepsis, his rhythm will not be an issue. 2.Sepsis with a white count of 2.7, elevated CRP, elevated ferritin, elevated D-dimer and elevated t roponin. All of those are reactive because of his sepsis. Echocardiogram will rule out cardiomyopat hy. I will continue to follow him. TOMÁS/GAYLE Voice ID: [id number] Report ID: [id number]
[2019-12-28 04:24] LABS: Absolute Lymphocytes (CBC) 0.7 K/uL (0.7-4.9); Basophils % 0.3 % (0-1.3); Hematocrit 34.9 % (39.6-49.0); Lymphocytes % 23.2 % (15.3-44.8); MPV 9.9 fL (7.6-11.3); RBC Red Blood Cell Count 3.84 M/uL (4.33-5.43)
[2019-12-28 04:33] LABS: BUN Blood Urea Nitrogen 14 mg/dL (7-18); Bicarbonate 23 mmol/L (21-32); Glucose Level 108 mg/dL (74-106); Potassium 3.5 mmol/L (3.5-5.1); Sodium Level 134 mmol/L (136-145); Troponin I 0.06 ng/mL (0.0-0.045)
[2019-12-28] MEDS: METOPROLOL XL 50 MG TAB PO SCH (05:31)
[2019-12-28] MEDS ORDERED: POTASSIUM CL SA 10 MEQ TAB PO ONE (06:00)
[2019-12-28] MEDS: SOTALOL HCL 80 MG TAB PO SCH ×2 (06:47→16:40)
--- NOTE | 2019-12-28 08:02 | PN ---
Date of Progress Note: 12/28/2019 Mr. Houser was seen because of new onset atrial fibrillation that began yesterday. He had been in [facility] for sepsis. He had both hypokalemia and elevated troponin. No previous cardiac history or cardiac risk factors. He initially came in with altered mental status, fever, and weakness. He i s on antibiotics and is slowly improving, but his atrial fibrillation rate continues to be high. He remains in atrial fibrillation at a rate of about 110 to 130 despite 50 mg of Lopressor twice a day. He is on Lovenox. I am going to switch him from metoprolol to Betapace 80 mg 1 p.o. b.i.d., he will start that today. He should stay on Lovenox. We will see what the echocardiogram shows. We will d ecide on long-term anticoagulation once he is ready for discharge. We will continue to follow him. TOMÁS/GAYLE Voice ID: [id number] Report ID: [id number]
[2019-12-28] MEDS: PANTOPRAZOLE 40MG TABLET PO SCH ×2 (09:40→16:41)
[2019-12-28] MEDS: CEFTRIAXONE/SWI 1gm 1 GM/10 ML SYR IV SCH ×2 (09:41→21:58)
[2019-12-28] MEDS: ENOXAPARIN 40 MG/0.4 ML SQ SCH (09:41)
[2019-12-28] MEDS: VANCOMYCIN 1.25 GM in NA CHLORIDE 0.9% 250 ML IVPB SCH ×2 (09:43→21:58)
--- NOTE | 2019-12-28 11:45 | P.PN ---
Subjective Date of Service: 12/28/19 Chief Complaint: Fever and altered mental status Subjective: No new changes, Improving (More awake, conversant today, still a bit drowsy) Physical Examination - Vital Signs Temperature: 98.4 F Blood Pressure: 118/60 Pulse: 122 Respirations: 20 Pulse Ox (%): 91 - Physical Exam General: Alert, Oriented x2, Obese HEENT: Atraumatic, Normocephalic, PERRLA Respiratory: Clear to auscultation bilaterally, Normal air movement Cardiovascular: No edema, Regular rate/rhythm Gastrointestinal: Normal bowel sounds, Soft and benign, Non-distended Neurological: Normal tone (Oriented to person, place, but not exactly to time), Abnormal speech (Slow but intact,) - Studies Microbiology Data (last 24 hrs): 12/25/19 17:30 Catheterized Urine [place] Count - Final 12/25/19 17:30 Catheterized Urine - Final No growth. 12/25/19 14:45 Throat Culture & Sensitivity - Final NORMAL UPPER RESPIRATORY LIZZ GROWN. CSF analysis-no organism, no WBC Assessment And Plan - Current Problems (Diagnosis) (1) Fever Current Visit: Yes Status: Acute (2) Hyponatremia Current Visit: Yes Status: Acute (3) Metabolic encephalopathy Current Visit: Yes Status: Acute (4) Dizziness Onset Date: 09/15/16 Current Visit: No Status: Acute Physician Review: Patient Assessed, Agree with Above Assessment and Plan Physician Review Additional Text: Recurrent fever-CSF negative for encephalitis -fever pattern improving, afebrile since last 16 hr. -continue empirical antibiotics -unclear etiology, may be viral syndrome -status post negative covid 19 testing -we continue home regimen on T afebrile for more than 48 hr -blood culture till date negative Metabolic encephalopathy-slowly improving. -continue to control fever -negative brain imaging New onset AFib-appreciate Cardiology evaluation, continue sotalol Hypertension-controlled DVT prophylaxis-we start Eliquis in a.m.-more than 48 hrs after LP Critical Care: No Time Spent Managing PTS Care (In Minutes): 40
[2019-12-28] MEDS ORDERED: POTASSIUM 25 MEQ EFFERV TAB PO ONE (11:46)
--- NOTE | 2019-12-28 14:00 | RAD REPORT ---
EXAM DESCRIPTION: CT - Head Brain Wo Cont - 12/28/2019 1:51 pm CLINICAL HISTORY: confusion Headache, drowsiness COMPARISON: Ct Stroke Brain Wo Cont dated 09/14/2016 TECHNIQUE: All CT scans are performed using dose optimization technique as appropriate and may inclu de automated exposure control or mA/KV adjustment according to patient size. FINDINGS: No intracranial hemorrhage, hydrocephalus or extra-axial fluid collection.Mild brain atrop hy.No areas of brain edema or evidence of midline shift. The paranasal sinuses and mastoids are clear. The calvarium is intact. IMPRESSION: No acute intracranial abnormality.
[2019-12-28] MEDS: NS KCL 20MEQ 20 MEQ/1,000 ML BAG IV SCH (14:26)
[2019-12-28] MEDS: ACETAMINOPHEN 500 MG TAB PO PRN (15:02)
--- NOTE | 2019-12-28 15:24 | ECHO ---
HEIGHT: 5 ft 6 in WEIGHT: 159 lb 15.831 oz DATE OF STUDY: 12/28/[address]: Mike Green MD 2-DIMENSIONAL: YES M.MODE: YES DOPPLER: YES COLOR FLOW: YES TDS: PORTABLE: DEFINITY: BUBBLE STUDY: DIAGNOSIS: ATRIAL FIBRILLATION CARDIAC HISTORY: CATHERIZATION: NO SURGERY: NO PROSTHETIC VALVE: NO PACEMAKER: NO MEASUREMENTS (cm) DIASTOLIC (NORMALS) SYSTOLIC (NORMALS) IVSd 1.0 (0.6-1.2) LA Diam 3.8 (1.9-4.0) LVEF 67% LVIDd 3.6 (3.5-5.7) LVIDs 2.3 (2.0-3.5) %FS 37% LVPWd 1.1 (0.6-1.2) Ao Diam 3.7 (2.0-3.7) 2 DIMENSIONAL ASSESSMENT: RIGHT ATRIUM: NORMAL LEFT ATRIUM: NORMAL RIGHT VENTRICLE: NORMAL LEFT VENTRICLE: NORMAL TRICUSPID VALVE: NORMAL MITRAL VALVE: NORMAL PULMONIC VALVE: NORMAL AORTIC VALVE: NORMAL PERICARDIAL EFFUSION: NONE AORTIC ROOT: NORMAL LEFT VENTRICULAR WALL MOTION: NORMAL DOPPLER/COLOR FLOW: NORMAL COMMENTS: ATRIAL FIBRILLATION. NORMAL LEFT VENTRICULAR SIZE AND FUNCTION. NO WALL MOTION ABNORMALITY. NO EFFUSION. TECHNOLOGIST: HAYLEE ARROYO
[2019-12-28] MEDS ORDERED: IBUPROFEN 400 MG TAB PO PRN (16:55)
[2019-12-28] MEDS ORDERED: IBUPROFEN 400 MG TAB ONE (17:10)
[2019-12-28] MEDS: AZITHROMYCIN IV 500 MG in NA CHLORIDE 0.9% 250 ML IVPB SCH (17:13)
[2019-12-28] MEDS: ATORVASTATIN 10 MG TAB PO SCH (21:58)
[2019-12-29] MEDS ORDERED: FUROSEMIDE 40 MG/4 ML VIAL ONE (04:09)
[2019-12-29] MEDS ORDERED: HYDRALAZINE HCL 20 MG/ML VIAL ONE (04:14)
[2019-12-29] MEDS ORDERED: METOPROLOL TARTRATE 5 MG/5 ML INJ IV ONE (04:19)
--- NOTE | 2019-12-29 04:33 | P.PN ---
Date of Service: 12/29/19 Rapid response was called on the patient. Patient was found to be hypoxic with oxygen saturation in the 60s to 70s. Systolic blood pressure elevated to 189, heart rate up to 140. He was febrile this afternoon with temperature up to 101. Patient placed on 100% non-rebreather mask. 40 mg IV Lasix administered. 10 mg IV hydralazine administered for blood pressure. Patient also given IV metoprolol for rapid heart rate. Diffuse infiltrates noted on the chest x-ray. Transfer the patient to the 4th floor for droplet isolation and repeat Covid 19 test.
[2019-12-29 05:52] LABS: Blood Gas Oxyhemoglobin 96.7 % (94-97); Blood O2 Saturation 98.3 % (92-98.5)
[2019-12-29] MEDS: SOTALOL HCL 80 MG TAB PO SCH ×2 (05:53→17:02)
[2019-12-29] MEDS: CEFTRIAXONE/SWI 1gm 1 GM/10 ML SYR IV SCH (07:10)
[2019-12-29] MEDS: PANTOPRAZOLE 40MG TABLET PO SCH ×2 (07:10→16:06)
[2019-12-29] MEDS: ENOXAPARIN 40 MG/0.4 ML SQ SCH (07:10)
--- NOTE | 2019-12-29 07:16 | RAD REPORT ---
EXAM DESCRIPTION: RAD - Chest Single View - 12/29/2019 4:11 am CLINICAL HISTORY: difficulty breathing COMPARISON: December 24 portable chest, December 24 CT chest TECHNIQUE: AP portable chest image was obtained 12/29/2019 4:11 am . FINDINGS: Lung volumes are low and there is respiratory motion degradation. No peripheral consolidat ions seen. Pleural thickening changes are present along the left-side. Cardiomegaly and mild vascular engorgement are present. Interstitial pattern is mildly prominent. No pneumothorax or large pleural effusion. No acute bony abnormality seen. No acute aortic findings suspected. IMPRESSION: Heart, vasculature and lung markings are all increased in prominence over comparison. Findings are mostly due to low lung volumes. A mild failure/ volume overload should be considered and follow-up obtained as warranted.
--- NOTE | 2019-12-29 09:39 | CON ---
History Of Present Illness: This is an 79-year-old male who has significant history of nephrolithias is. I was consulted for possible COVID pneumonia. Patient has a COVID test done 3 days ago, which w as negative. The patient went under rapid response and was found to be septic with elevated heart ra te and fevers, and was transferred to the designated floor for treatment of COVID. Patient initially came in with altered mental status and fever. Fever started 5 days prior to admission. Patient had no cough and shortness of breath at that time. Patient denies any other problems. His test on admi t for COVID was also negative. His chest x-ray done earlier today showed that the patient has left f ollicular lung markings increased in prominence compared to previous x-ray with low lung volumes, mil d failure, volume overload should be considered, possible right lower lobe infiltrate and small effus ions in both sides. A CT of the head shows no intracranial abnormalities. The patient at this point denies any headache, nausea, vomiting, chest pain, abdominal pain, constipation, or diarrhea. Past Medical History: Nephrolithiasis, right ureter repair. Social History: Nonsmoker, nondrinker. Family History: Noncontributory. Medications: Zithromax, Rocephin, and vancomycin. See MAR for other medications. Allergies: NO KNOWN DRUG ALLERGIES EXCEPT MUSHROOM. Review of Systems: A 10-point review was performed. Physical Examination: General: This is an 79-year-old male, lying in bed, on 2 L nasal cannula. Vital Signs: Temperature 99, heart rate of 97, respirations 18, blood pressure 92/58. HEENT: Unremarkable. Neck: Supple. Lungs: Basal crackles. Heart: S1, S2. Regular. Abdomen: Soft. Bowel sounds present. Extremities: No edema. Laboratory Data: Shows WBC 2.9, hemoglobin 12.5, platelets are 67. Chemistry shows sodium 134, pota ssium 3.5, chloride 105, bicarb 23, BUN 14, creatinine 0.6, glucose is 108 from yesterday. Micro jon a from blood culture from 12/24 is negative for 24 hours. COVID test from 12/24 is negative, today i s pending. Assessment And Plan: 79-year-old male under investigation for coronavirus disease pneumonia. As pat ient's WBC count and platelets have decreased significantly, we will recommend to stop vancomycin and Rocephin. Switch patient to cefepime and start steroid 40 mg, Solu-Medrol 40 mg IV q.8 hours for 3 days, and vitamin C 1000 mg. Also recommended to include nutrition. Follow the patient closely. NF/MODL Voice ID: [id number] Report ID: [id number]
[2019-12-29 09:45] LABS: BUN Blood Urea Nitrogen 16 mg/dL (7-18); Bicarbonate 25 mmol/L (21-32); Glucose Level 98 mg/dL (74-106); Potassium 3.4 mmol/L (3.5-5.1); Sodium Level 133 mmol/L (136-145)
[2019-12-29] MEDS ORDERED: POTASSIUM CL SA 10 MEQ TAB PO ONE (11:23)
[2019-12-29] MEDS: NS KCL 20MEQ 20 MEQ/1,000 ML BAG IV SCH ×2 (11:33)
[2019-12-29] MEDS ORDERED: FUROSEMIDE 40 MG/4 ML VIAL IV ONE (11:56)
--- NOTE | 2019-12-29 15:45 | PN ---
Date of Progress Note: 12/29/2019 Code Status: Full. Subjective: Patient is seen and examined. Chart reviewed and case discussed with RN and Dr. Schultz. Patient states he feels slightly better. Denies any significant pain. Medications list reviewed. Patient had rapid response and was transferred back to the 4th floor. He was retested for a COVID, which was negative. He was somewhat hypoxic. Physical Examination: Vital Signs: Temperature 98.5, heart rate 94, blood pressure 109/68, respirations 18, O2 93% on 3 L via nasal cannula, now weaned off face mask. General: Awake, alert, oriented x3. Elderly male, ill appearing. CV: S1, S2. Irregularly irregular. Peripheral pulses present. Respiratory: Somewhat diminished breath sounds. No wheezing or stridor. Gastrointestinal: Abdomen is soft, nontender, nondistended. Positive bowel sounds. Extremities: No clubbing or cyanosis. Patient has pedal edema. Neurologic: Nonfocal. Moves all 4 extremities. Speech is normal. Laboratory Data: Sodium 133, potassium 3.4, chloride 99, CO2 of 25, BUN 16, creatinine 0.76, glucose 98, calcium 8.1. WBC 2.9, H and H 12.5 and 34.9, platelets 67, neutrophils 72. Imaging Studies: COVID screens negative x2. Blood cultures, no growth to date. Chest x-ray shows m oderate vasculature and lung markings overall increase in prominence over comparison finding mostly d ue to low lung volumes. Mild failure or volume overload should be considered. Followup will obtain as warranted. Assessment: An 79-year-old male with: 1.Recurrent fever, unclear etiology. Cerebrospinal fluid is negative. We will repeat blood culture s. Patient had last temperature spike of 101.2 yesterday evening around 5 p.m. Appreciate ID input. Antibiotics needed are Zithromax and cefepime. 2.Possible volume overload. We will give dose of Lasix and monitor. 3.Acute respiratory failure. Patient was initially required face mask, was hypoxic. O2 saturations 60% to 70%, now improved, currently on nasal cannula 3 L, saturating 93%. 4.Acute metabolic encephalopathy, resolved. Head CT scan obtained yesterday was negative. 5.Dizziness, likely secondary to above. 6.New onset atrial fibrillation. Continue sotalol. 7.Essential hypertension, stable. Patient had recent LP. Eliquis to be restarted in 48 hours, whic h will be today in the evening. 8.Pancytopenia. Patient has low white blood cell count, anemia, as well as thrombocytopenia. Plate let count 67. We will hold Lovenox for now may be secondary to antibiotics. Vancomycin and Rocephin have been discontinued. Dr. Schultz has started the patient on steroids. Consider Hematology consul tation. May need Neupogen if continues to decline, unclear etiology. 9.Deep vein thrombosis prophylaxis. Lovenox has been discontinued. We will start on Eliquis in the morning if hemoglobin continues to remain stable. /GAYLE Voice ID: [id number] Report ID: [id number]
[2019-12-29] MEDS: METHYLPREDNISOLONE 40 MG INJ IV SCH (16:06)
[2019-12-29] MEDS: AZITHROMYCIN IV 500 MG in NA CHLORIDE 0.9% 250 ML IVPB SCH (17:00)
[2019-12-29] MEDS: CEFEPIME/SWI 1gm 10 ML IV SCH (19:52)
[2019-12-29] MEDS: ATORVASTATIN 10 MG TAB PO SCH (19:53)
[2019-12-29] MEDS ORDERED: CEFEPIME 1 GM/VIAL IV SCH (21:00)
[2019-12-30] MEDS: METHYLPREDNISOLONE 40 MG INJ IV SCH ×3 (01:06→16:19)
[2019-12-30] MEDS: NS KCL 20MEQ 20 MEQ/1,000 ML BAG IV SCH ×2 (01:06→16:20)
[2019-12-30] MEDS: SOTALOL HCL 80 MG TAB PO SCH ×2 (05:42→18:07)
[2019-12-30 06:03] LABS: Absolute Lymphocytes (CBC) 0.6 K/uL (0.7-4.9); Basophils % 0.3 % (0-1.3); Hematocrit 33.5 % (39.6-49.0); Lymphocytes % 13.7 % (15.3-44.8); MPV 11.3 fL (7.6-11.3); RBC Red Blood Cell Count 3.68 M/uL (4.33-5.43)
[2019-12-30 06:13] LABS: ALT/SGPT 72 U/L (12-78); AST/SGOT 123 U/L (15-37); Albumin 2.3 g/dL (3.4-5.0); Alkaline Phosphatase 82 U/L (45-117); BUN Blood Urea Nitrogen 18 mg/dL (7-18); Bicarbonate 22 mmol/L (21-32); Bilirubin Total 0.7 mg/dL (0.2-1.0); Glucose Level 131 mg/dL (74-106); Protein, Total 5.8 g/dL (6.4-8.2); Sodium Level 136 mmol/L (136-145)
[2019-12-30] MEDS: ENSURE ENLIVE 237 ML CAN PO SCH ×3 (09:00→21:00)
[2019-12-30] MEDS: PANTOPRAZOLE 40MG TABLET PO SCH ×2 (09:02→16:19)
[2019-12-30] MEDS: CEFEPIME/SWI 1gm 10 ML IV SCH ×2 (09:03→21:14)
[2019-12-30] MEDS: APIXABAN 5 MG TABLET PO SCH ×2 (10:52→21:14)
[2019-12-30] MEDS: DOXYCYCLINE 100 MG in NA CHLORIDE 0.9% 100 ML IVPB SCH ×2 (10:52→21:15)
--- NOTE | 2019-12-30 11:48 | PN ---
Date of Progress Note: 12/30/2019 Subjective: Patient seen and examined. Chart reviewed and case discussed with RN and Dr. Schultz. Alessandra atient now reporting that he was exposed to ticks in the [place] in September and is concerned about tic k-borne illness. Overall, patient states he feels about the same. Still feeling weak. Medications: List reviewed. Physical Examination: Vital Signs: Temperature 97.7, heart rate 87, blood pressure 112/71, respirations 18, O2 96% on 2 L via nasal cannula. General: Awake, alert, oriented x3. Elderly male, ill appearing, in some mild distress. CV: S1, S2. Irregularly irregular. Peripheral pulses present. Respiratory: Moving air well bilaterally. No wheezing or stridor. Gastrointestinal: Abdomen is soft, nontender, nondistended. Positive bowel sounds. Extremities: No clubbing, cyanosis, or edema. Neurologic: Nonfocal. Laboratory Data: Sodium 136, potassium 4, chloride 104, CO2 of 22, BUN 18, creatinine 0.61, glucose 131, calcium 7.3. AST 123, ALT 72. WBC 4.5, H and H 11.9 and 33.5, platelets 131, neutrophils 80%. Blood cultures pending. Initial cultures did not show any growth. Throat culture shows normal uppe r respiratory davin. Assessment: An 79-year-old male with. 1.Recurrent fever, unclear etiology. CSF workup was negative. Blood cultures have been negative. Repeat blood cultures are pending. Possible tick-borne disease. We will add doxycycline. Appreciat e ID input. 2.Volume overload, was given a dose of Lasix, improved. 3.Acute respiratory failure with hypoxia. O2 saturation is now improved, currently on 2 L via nasal cannula. 4.Acute metabolic encephalopathy, resolved. Head CT is negative. 5.Dizziness secondary to above. 6.New-onset atrial fibrillation. Continue Eliquis and sotalol. 7.Essential hypertension, stable. 8.Pancytopenia, improving. White blood cell count is up to 4.5. Platelets are above 100. Patient is on steroids, unclear etiology, may be related to acute illness. 9.Deep venous thrombosis prophylaxis. The patient is on Eliquis. 10.Protein-calorie malnutrition. Albumin is 2.3. Patient has severe malnutrition. We will add pro tein supplementation. Encourage intake. PT/OT eval. Patient will likely need acute rehab versus [facility] nursing facility placement. /GAYLE Voice ID: [id number] Report ID: [id number]
[2019-12-30] MEDS ORDERED: APIXABAN 5 MG TABLET PO SCH (21:00)
[2019-12-30] MEDS: ACETAMINOPHEN 500 MG TAB PO PRN (21:14)
[2019-12-30] MEDS: ATORVASTATIN 10 MG TAB PO SCH (21:15)
[2019-12-31] MEDS: METHYLPREDNISOLONE 40 MG INJ IV SCH ×3 (00:41→17:38)
[2019-12-31] MEDS: NS KCL 20MEQ 20 MEQ/1,000 ML BAG IV SCH ×2 (05:20→17:39)
[2019-12-31 05:23] LABS: Absolute Lymphocytes (CBC) 0.8 K/uL (0.7-4.9); Basophils % 0.2 % (0-1.3); Hematocrit 31.3 % (39.6-49.0); Lymphocytes % 6.2 % (15.3-44.8); MPV 10.6 fL (7.6-11.3); RBC Red Blood Cell Count 3.45 M/uL (4.33-5.43)
[2019-12-31 05:40] LABS: ALT/SGPT 60 U/L (12-78); AST/SGOT 71 U/L (15-37); Albumin 2.2 g/dL (3.4-5.0); Alkaline Phosphatase 75 U/L (45-117); BUN Blood Urea Nitrogen 19 mg/dL (7-18); Bicarbonate 24 mmol/L (21-32); Bilirubin Total 0.7 mg/dL (0.2-1.0); Glucose Level 144 mg/dL (74-106); Protein, Total 5.3 g/dL (6.4-8.2); Sodium Level 138 mmol/L (136-145)
[2019-12-31] MEDS: SOTALOL HCL 80 MG TAB PO SCH ×2 (05:55→17:40)
[2019-12-31] MEDS: CEFEPIME/SWI 1gm 10 ML IV SCH ×2 (08:07→20:40)
[2019-12-31] MEDS: APIXABAN 5 MG TABLET PO SCH ×2 (08:08→20:40)
[2019-12-31] MEDS: PANTOPRAZOLE 40MG TABLET PO SCH ×2 (08:08→16:30)
[2019-12-31] MEDS: DOXYCYCLINE 100 MG in NA CHLORIDE 0.9% 100 ML IVPB SCH ×2 (08:09→20:40)
[2019-12-31 08:41] LABS: Blood Morphology Comment NOT SEEN (NOT SEEN); Platelet Estimate ADEQ; Urine White Blood Cell Casts OK
[2019-12-31] MEDS: ENSURE ENLIVE 237 ML CAN PO SCH ×3 (08:54→20:41)
[2019-12-31] MEDS: levETIRAcetam 500 MG in NA CHLORIDE 0.9% 100 ML IV SCH ×2 (11:20→20:40)
--- NOTE | 2019-12-31 15:31 | PN ---
Date of Progress Note: 12/31/2019 Subjective: Patient seen and examined. Chart reviewed and case discussed with RN and with Dr. Schultz yesterday. Patient appears to be somewhat confused this morning, was oriented x3, but having some fogginess. Patient was started on doxycycline yesterday for possible tick-borne illness. Medications: List reviewed. Physical Examination: Vital Signs: Temperature 97.2, heart rate 82, blood pressure 111/73, respirations 16, O2 of 95% on room air. General: Awake, alert, oriented x3. Elderly male, does not appear to be in any acute distress. Does appear somewhat confused. CV: S1, S2, irregularly irregular. Peripheral pulses present. Respiratory: Moving air well bilaterally. No wheezing or stridor. Gastrointestinal: Abdomen is soft, nontender, nondistended. Positive bowel sounds. No guarding or rigidity. Extremities: No clubbing, cyanosis, or edema. Neurologic: Nonfocal. Oriented x3, but does appear to be somewhat confused. Laboratory Data: Sodium 138, potassium 4, chloride 107, CO2 of 24, BUN 19, creatinine 0.62, glucose 144, calcium 7.6, AST 71, ALT 60. WBC 12.6, H and H 11 and 31.3, platelets 190. Repeat blood cultures are also negative. Cerebrospinal fluid pending. Initial cultures are also negative. Assessment: An 79-year-old male with. 1. Recurrent fever. CSF workup negative. Blood cultures negative. Possible tick-borne disease. Antibiotics have been adjusted. Repeat blood cultures are also pending. Patient has been afebrile now since the . 2. Volume overload, improving. 3. Acute respiratory failure with hypoxia. Patient now back on room air. 4. Acute metabolic encephalopathy. Patient is still oriented x3, but still having some confusion and appears to be somewhat foggy, may be related to tick- borne illness. We will consult Neurology. 5. Dizziness, improved. 6. New-onset atrial fibrillation. We will continue Eliquis and sotalol. 7. Essential hypertension, stable. 8. Pancytopenia, improved. White blood cell count now 12. We will taper steroids. 9. Deep venous thrombosis prophylaxis. Continue Eliquis. 10. Severe protein-calorie malnutrition. Continue protein supplementation. Continue PT, OT eval. The patient stated that he worked well with physical therapist and does not want wish to go to SNF. May need to set up home health with physical therapy; however, at this time, worsening mental status is preventing him from going home. Pending neurology eval. ADDENDUM: Spoke with neurologist Dr. Bah. He recommends EEG in a.m. and to initiate Keppra. /GAYLE Voice ID: [id number] Report ID: [id number] ELIZA
[2019-12-31] MEDS: ACETAMINOPHEN 500 MG TAB PO PRN (20:39)
[2019-12-31] MEDS: ATORVASTATIN 10 MG TAB PO SCH (20:40)
[2020-01-01] MEDS: METHYLPREDNISOLONE 40 MG INJ IV SCH ×2 (00:57→09:09)
[2020-01-01] MEDS: ACETAMINOPHEN 500 MG TAB PO PRN ×2 (04:02→22:16)
[2020-01-01 04:12] LABS: Absolute Lymphocytes (CBC) 0.6 K/uL (0.7-4.9); Basophils % 0.1 % (0-1.3); Hematocrit 31.2 % (39.6-49.0); Lymphocytes % 4.1 % (15.3-44.8); MPV 10.4 fL (7.6-11.3); RBC Red Blood Cell Count 3.37 M/uL (4.33-5.43)
[2020-01-01 04:27] LABS: ALT/SGPT 52 U/L (12-78); AST/SGOT 43 U/L (15-37); Albumin 2.4 g/dL (3.4-5.0); Alkaline Phosphatase 69 U/L (45-117); BUN Blood Urea Nitrogen 19 mg/dL (7-18); Bicarbonate 23 mmol/L (21-32); Bilirubin Total 0.5 mg/dL (0.2-1.0); Glucose Level 170 mg/dL (74-106); Potassium 4.2 mmol/L (3.5-5.1); Protein, Total 5.3 g/dL (6.4-8.2); Sodium Level 140 mmol/L (136-145)
[2020-01-01] MEDS: SOTALOL HCL 80 MG TAB PO SCH ×2 (06:12→17:02)
[2020-01-01] MEDS: NS KCL 20MEQ 20 MEQ/1,000 ML BAG IV SCH ×3 (08:00→21:20)
[2020-01-01] MEDS: CEFEPIME/SWI 1gm 10 ML IV SCH ×2 (08:43→22:16)
[2020-01-01] MEDS: levETIRAcetam 500 MG in NA CHLORIDE 0.9% 100 ML IV SCH ×2 (08:43→22:17)
[2020-01-01] MEDS: PANTOPRAZOLE 40MG TABLET PO SCH ×2 (08:44→17:02)
[2020-01-01] MEDS: APIXABAN 5 MG TABLET PO SCH ×2 (08:44→22:17)
[2020-01-01] MEDS: ENSURE ENLIVE 237 ML CAN PO SCH ×3 (08:45→22:15)
[2020-01-01] MEDS: DOXYCYCLINE 100 MG in NA CHLORIDE 0.9% 100 ML IVPB SCH ×2 (08:53→22:16)
--- NOTE | 2020-01-01 16:37 | P.PN ---
Date of Service: 01/01/20 Subjective: Patient is an 79-year-old male who has significant history of nephrolithiasis. I was consulted for possible COVID pneumonia. Covid test came back negative on 12/24. Patient examined at bedside. Reports decreased appetite and feels weak. Denies nausea, vomiting, diarrhea, shortness of breath, cough and burning/pain with urination. Patient reports working outside in the yard before all of this happened. Objective: Temp Pulse Resp BP Pulse Ox 97.2 F 85 16 126/74 97 01/01/20 15:50 01/01/20 15:50 01/01/20 15:50 01/01/20 15:50 01/01/20 15:50 Labs: Sodium 140, potassium 4.2, WBC 15.3, Hgb 10.8, Hct 31.2 ROS: General: Awake, alert, lying in bed Lungs: Clear to auscultation Heart: S1,S2, irregular Abdomen: Soft. Bowel sounds present. Extremities: No edema. Assessment And Plan: Covid 19 negative Leukocytosis Blood cultures 12/24 negative, repeat cultures done today Urine cultures negative CSF workup negative ABX Maxipime and Doxycylcine for possible tick borne disease Will continue to monitor Patient discussed with Dr. Schultz
[2020-01-01] MEDS: ATORVASTATIN 10 MG TAB PO SCH (22:17)
[2020-01-01] MEDS: predniSONE 20 MG TAB PO SCH (22:17)
--- NOTE | 2020-01-02 04:05 | DS ---
Date of Discharge: 01/01/2020 Consultants: Dr. Schultz, Infectious Disease; Cardiology, Dr. Green; Dr. Bah with Neurology. Admitting Diagnoses: 1.Acute metabolic encephalopathy. 2.Fever. 3.Hyponatremia. Discharge Diagnoses: 1.Recurrent fever. CSF workup negative. Likely due to Lyme disease. 2.Volume overload, improved. 3.Acute respiratory failure with hypoxia, now back on room air. 4.Acute metabolic encephalopathy, improved. 5.Dizziness, improving. 6.New-onset atrial fibrillation. Continue Eliquis and sotalol. 7.Essential hypertension, stable. 8.Pancytopenia, improved. 9.Severe protein-calorie malnutrition. Hospital Course: Patient is an 79-year-old male with no significant past medical history, comes in w ith fever and altered mental status. CT angio chest did not show any evidence of PE. His CRP and fe rritin were elevated. Patient had lumbar puncture done and CSF results were negative. He was starte d on empiric antibiotics. His cultures were negative. ID was consulted. His repeat blood cultures were also negative. Patient continued to have fever and confusion. He was rechecked for coronavirus , which was negative for the second time. Patient did have some pancytopenia, started on steroids, i mproved; some mild electrolyte abnormalities, which were corrected including sodium and potassium. L yme disease panel was sent out. Patient finally reported to us that he had tick exposure in September and therefore was started on doxycycline. Patient started to improve. Neurology was also consulted . He recommended EEG and prophylactic initiation of Keppra. Patient has not had any seizures. Terese ent was also seen by Dr. Green for new-onset atrial fibrillation. He was started on sotalol and no w is rate controlled, and he was started on anticoagulation with Eliquis. Patient did have severe pr otein-calorie malnutrition due to his lack of good p.o. intake. Patient did have some fluid overload as well and became hypoxic. He was given diuretics and improved. Patient is now on room air. Terese langford worked with Physical Therapy and was weak, recommended to go to a SNF, but refused. Family was a lso contacted. They recommended for the patient to come home with home physical therapy. Patient al so now oriented x3, able to make that decision, wanting to go home with physical therapy at home. Th ey understand that there is a risk of falls at home, which could result in brain bleed or hip fractur e, even as patient is on anticoagulation. They rather have him home. Both daughters are prese nt and wish to take care of him at home given this current pandemic situation, which is understandabl e. Patient was then cleared for discharge from ID and cardiology standpoint. EEG was also done. Alfonso sanz will be transferred home with home healthcare once set up. Followup: Patient to follow up with primary care physician in 2-3 days. Follow up with air liaison and special staff , Dr. Green, in 2 weeks. Follow up with Infectious Disease, Dr. Schultz, in 2 weeks. Follow up wit neurologist, Dr. Bah, in 2 weeks. Return to ER for worsening condition. Diet: Heart healthy. Activity: Fall precautions. Medications: As per medication reconciliation list. Physical Examination: General: Awake, alert, oriented x3. No acute distress. CV: S1, S2. Respiratory: Moving air well bilaterally. Abdomen: Soft, nontender, nondistended. Positive bowel sounds. Extremities: No clubbing, cyanosis, or edema. Neuro: Nonfocal. Total time spent discharging patient was 43 minutes. /GAYLE Voice ID: [id number] Report ID: [id number]
[2020-01-02] MEDS: NS KCL 20MEQ 20 MEQ/1,000 ML BAG IV SCH ×3 (05:46→23:19)
[2020-01-02] MEDS: SOTALOL HCL 80 MG TAB PO SCH ×2 (05:46→17:06)
[2020-01-02] MEDS: levETIRAcetam 500 MG in NA CHLORIDE 0.9% 100 ML IV SCH ×2 (07:22→19:54)
[2020-01-02] MEDS: predniSONE 20 MG TAB PO SCH ×2 (07:23→19:57)
[2020-01-02] MEDS: CEFEPIME/SWI 1gm 10 ML IV SCH ×2 (07:23→19:57)
[2020-01-02] MEDS: PANTOPRAZOLE 40MG TABLET PO SCH ×2 (07:23→17:06)
[2020-01-02] MEDS: APIXABAN 5 MG TABLET PO SCH ×2 (07:23→19:57)
[2020-01-02] MEDS: ENSURE ENLIVE 237 ML CAN PO SCH ×3 (07:24→19:57)
[2020-01-02] MEDS: DOXYCYCLINE 100 MG in NA CHLORIDE 0.9% 100 ML IVPB SCH (08:53)
[2020-01-02] MEDS ORDERED: MIDAZOLAM HCL 2 MG/2 ML INJ ONE (10:57)
[2020-01-02] MEDS ORDERED: FLUMAZENIL 0.1 MG/ML (5 mL VIAL) IV ONE (10:57)
[2020-01-02] MEDS ORDERED: MIDAZOLAM HCL 5 MG/5 ML INJ ONE (10:57)
[2020-01-02] MEDS ORDERED: ATROPINE SULF 1 MG/10 ML SYR IV ONE (10:57)
[2020-01-02] MEDS ORDERED: NA CHLORIDE 0.9% 500 ML ONE (10:58)
--- NOTE | 2020-01-02 14:50 | P.PN ---
Date of Service: 01/02/20 Subjective: Patient is an 79-year-old male who has significant history of nephrolithiasis. I was consulted for possible COVID pneumonia. Covid test came back negative on 12/24. Patient examined at bedside. Reports decreased appetite and feels weak. Denies nausea, vomiting, diarrhea, shortness of breath, cough and burning/pain with urination. Patient reports working outside in the yard before all of this happened. Objective: Temp Pulse Resp BP Pulse Ox 98 F 81 20 110/75 98 01/02/20 08:00 01/02/20 08:00 01/02/20 08:00 01/02/20 08:00 01/02/20 08:00 Labs: No new labs available. 12/31: Sodium 140, potassium 4.2, WBC 15.3, Hgb 10.8, Hct 31.2 ROS: General: Awake, alert, lying in bed Lungs: Clear to auscultation Heart: S1,S2, irregular Abdomen: Soft. Bowel sounds present. Extremities: No edema. Assessment And Plan: Covid 19 negative Leukocytosis Blood cultures 12/24 negative, repeat cultures 12/28 also negative Urine cultures negative CSF workup negative ABX Maxipime and Doxycylcine for possible tick borne disease, recommend to discontinue Maxipime Recommend to continue Doxycycline 100mg PO BID for total of three weeks Will continue to monitor Patient discussed with Dr. Schultz
--- NOTE | 2020-01-02 15:30 | P.PN ---
Subjective Date of Service: 01/02/20 Chief Complaint: Fever and altered mental status Subjective: Improving Physical Examination - Vital Signs Temperature: 98 F Blood Pressure: 110/75 Pulse: 81 Respirations: 20 Pulse Ox (%): 98 - Physical Exam General: Alert, Cooperative HEENT: Atraumatic Neck: Supple Respiratory: Clear to auscultation bilaterally, Normal air movement Cardiovascular: Normal pulses, Regular rate/rhythm Gastrointestinal: Normal bowel sounds, Soft and benign, Non-distended Neurological: Normal speech, Normal strength at 5/5 x4 extr, Normal tone, Normal affect - Studies Medications List Reviewed: Yes Assessment & Plan Discharge Plan: Home Plan to discharge in: 24 Hours Physician Review Additional Text: Impression: Recurrent fever, CSF culture shows Gram negative rods Acute respiratory failure with hypoxia Acute metabolic encephalopathy likely related to above New onset atrial fibrillation status post cardioversion Hypertension Severe protein calorie malnutrition Plan: Spoke with cardiology. Patient had cardioversion today. Patient now on sinus rhythm. CSF culture shows Gram negative rods. Case discussed with infectious disease. Infectious Disease suspects contaminant. Will need to send lab for further evaluation. Suspect line disease. Patient on antibiotic therapy at this time. Overall patient has significantly improved. For his AFib he will continue with sotalol and Eliquis. Continue physical therapy and nutrition. Anticipate discharge in the next 1-2 days once cultures have come back. Time Spent Managing Pts Care (In Minutes): 55
[2020-01-02] MEDS: DOXYCYCLINE 100 MG CAP PO SCH (19:57)
[2020-01-02] MEDS: ATORVASTATIN 10 MG TAB PO SCH (19:57)
[2020-01-02] MEDS: LORAZEPAM 0.5 MG TABLET PO PRN (21:17)
--- NOTE | 2020-01-02 23:41 | PN ---
Date of Progress Note: 01/01/2020 Mr. Houser is an 79-year-old male. He was admitted with sepsis, altered mental status, negative wor kup so far from an infection standpoint. He had developed atrial fibrillation approximately 3 days a go. Has been treated with Betapace 80 mg 1 p.o. b.i.d. and Eliquis, and he remains in atrial fibrill ation with rate control. He has had some nonspecific complaint including weakness and fatigue, short ness of breath, and we decided it may be best to do a direct current cardioversion on him before he g oes home. The case was discussed with him and with his family over the phone in [place]. Everybody understood the risks and the benefits of the procedure and they agreed to proceed. The cardioversion will occur on 01/02/2020. TOMÁS/GAYLE Voice ID: [id number] Report ID: [id number]
--- NOTE | 2020-01-03 00:09 | OP ---
Date of Procedure: 01/02/2020 Surgeon: Mike Green MD Blade Balancer: Darshana Can. Patient can certainly go home whenever he wakes up or in the morning. The case was discussed with Dr Angie Cleary and with Mr. Houser and his family. Procedure: Direct current cardioversion. Indication: Atrial fibrillation, new onset that had failed Betapace. Patient had been on Eliquis. Atrial fibrillation is about 4-day-old, on Eliquis. He remained with atrial fibrillation at a rate o f 80 or 90 with dyspnea on exertion, weakness, and confusion. It was decided may be a cardioversion to put him in a normal sinus rhythm may help. Description Of Procedure: He was brought to the [facility] as an inpatient. He was given 2 mg of Vers ed for IV sedation. He received 1 shock of 200 joules and he converted to sinus rhythm. There were no complications or blood Loss. Total conscious sedation was 30 minutes. Final Diagnosis: Successful cardioversion of atrial fibrillation to sinus rhythm. We will continue Betapace and Eliquis. TOMÁS/GAYLE Voice ID: [id number] Report ID: [id number]
[2020-01-03 04:09] LABS: Basophils % 0.3 % (0-1.3); Hematocrit 30.5 % (39.6-49.0); Lymphocytes % 7.9 % (15.3-44.8); MPV 9.9 fL (7.6-11.3); RBC Red Blood Cell Count 3.25 M/uL (4.33-5.43)
[2020-01-03 04:31] LABS: BUN Blood Urea Nitrogen 16 mg/dL (7-18); Bicarbonate 27 mmol/L (21-32); Glucose Level 108 mg/dL (74-106); Magnesium 2.4 mg/dL (1.8-2.4); Potassium 4.4 mmol/L (3.5-5.1); Sodium Level 139 mmol/L (136-145)
[2020-01-03] MEDS: SOTALOL HCL 80 MG TAB PO SCH ×2 (05:02→17:15)
[2020-01-03] MEDS: PANTOPRAZOLE 40MG TABLET PO SCH ×2 (07:21→17:16)
[2020-01-03] MEDS: CEFEPIME/SWI 1gm 10 ML IV SCH (07:21)
[2020-01-03] MEDS: APIXABAN 5 MG TABLET PO SCH ×2 (07:21→20:36)
[2020-01-03] MEDS: DOXYCYCLINE 100 MG CAP PO SCH ×2 (07:22→20:35)
[2020-01-03] MEDS: predniSONE 20 MG TAB PO SCH ×2 (07:22→20:35)
[2020-01-03] MEDS: ENSURE ENLIVE 237 ML CAN PO SCH ×3 (07:22→20:36)
[2020-01-03] MEDS: NS KCL 20MEQ 20 MEQ/1,000 ML BAG IV SCH ×2 (07:25→21:00)
[2020-01-03] MEDS: levETIRAcetam 500 MG in NA CHLORIDE 0.9% 100 ML IV SCH ×2 (07:36→20:35)
--- NOTE | 2020-01-03 15:25 | PN ---
Date of Progress Note: 01/03/2020 History Of Present Illness: Mr. Houser was taken to the senior label specialist yesterday for a direct current car dioversion for atrial fibrillation. He had failed sotalol and a cardioversion of 200 joules x1, conv erted him back to sinus rhythm. Today, he remains in sinus rhythm. His vital signs are stable. He is afebrile. His mental status is unchanged. From an atrial fibrillation standpoint, we will contin ue Eliquis and continue Betapace 80 mg b.i.d. The case was discussed with Dr. Cleary. Apparently, t he patient grew some Gram positive cocci from the CSF fluid. They are not really sure if this is a c ontaminant. Nevertheless, the patient is stable from a cardiovascular standpoint. I will sign off h is case. He will continue Betapace and Eliquis. He can go home whenever it is okay with Dr. Cleary. TOMÁS/GAYLE Voice ID: [id number] Report ID: [id number]
--- NOTE | 2020-01-03 16:02 | P.PN ---
Date of Service: 01/03/20 Subjective: Patient is an 79-year-old male who has significant history of nephrolithiasis. I was consulted for possible COVID pneumonia. Covid test came back negative on 12/24. Patient examined at bedside. Reports decreased appetite and feels weak. Denies nausea, vomiting, diarrhea, shortness of breath, cough and burning/pain with urination. Patient reports working outside in the yard before all of this happened. Objective: Temp Pulse Resp BP Pulse Ox 97.3 F 63 18 136/70 97 01/03/20 15:49 01/03/20 15:49 01/03/20 15:49 01/03/20 15:49 01/03/20 15:49 Labs: Na 139, K 4.4, Albumin 2.4, WBC 12.4 ROS: General: Awake, alert, lying in bed Lungs: Clear to auscultation Heart: S1,S2 Abdomen: Soft. Bowel sounds present. Extremities: No edema. Assessment And Plan: Covid 19 negative Leukocytosis improving Blood cultures 12/24 negative, repeat cultures 12/28 also negative Urine cultures negative CSF workup positive for gram positive rods, most likely contamination, awaiting full report ABX Maxipime and Doxycylcine, recommend to continue Doxy and to discontinue Maxipime and start on Rocephin 2g daily Will continue to monitor Patient discussed with Dr. Schultz
--- NOTE | 2020-01-03 16:21 | EKG ---
Test Date: 2020-01-02 Test Time: 11:37:19 Enterprise Resource Planning Consultant: INDIGO MEASUREMENT RESULTS: Intervals: Rate: 56 AR: QRSD: 128 QT: 556 QTc: 536 [place]: P: AR: QRS: 4 T: -49 INTERPRETIVE STATEMENTS: Wide QRS rhythm Nonspecific intraventricular block Cannot rule out Septal infarct, age undetermined Possible Inferior infarct, age undetermined Abnormal ECG Compared to ECG 12/27/2019 00:49:33 Uncertain supraventricular rhythm now present Myocardial infarct finding now present Atrial fibrillation no longer present Electronically Signed On 01-03-20 16:18:13 CDT by Mike Green
--- NOTE | 2020-01-03 17:02 | P.PN ---
Subjective Date of Service: 01/03/20 Chief Complaint: Fever and altered mental status Subjective: Other (Patient more alert today.) Physical Examination - Vital Signs Temperature: 97.3 F Blood Pressure: 136/70 Pulse: 63 Respirations: 18 Pulse Ox (%): 97 - Physical Exam General: Alert, Cooperative HEENT: Atraumatic Neck: Supple Respiratory: Clear to auscultation bilaterally, Normal air movement Cardiovascular: Normal pulses, Regular rate/rhythm - Studies Medications List Reviewed: Yes Assessment & Plan Discharge Plan: Home Plan to discharge in: 24 Hours Physician Review Additional Text: Impression: Recurrent fever, CSF culture shows Gram negative rods Acute respiratory failure with hypoxia Acute metabolic encephalopathy likely related to above New onset atrial fibrillation status post cardioversion Hypertension Severe protein calorie malnutrition Plan: Still waiting on CSF cultures. Infectious Disease has adjusted antibiotic therapy. Case discussed with infectious disease and cardiology. Patient appears improved overall. Patient continues with sotalol and Eliquis. Continue physical therapy and nutrition. Anticipate discharge in the next 1-2 days once cultures have returned. Time Spent Managing Pts Care (In Minutes): 55
[2020-01-03] MEDS: LORAZEPAM 0.5 MG TABLET PO PRN (17:16)
[2020-01-03] MEDS: CEFTRIAXONE/SWI 2gm 2 GM/20 ML SYR IVP SCH (17:16)
[2020-01-03] MEDS: ATORVASTATIN 10 MG TAB PO SCH (20:35)
[2020-01-04] MEDS: NS KCL 20MEQ 20 MEQ/1,000 ML BAG IV SCH ×3 (02:40→22:14)
[2020-01-04 04:21] LABS: Basophils % 0.1 % (0-1.3); Hematocrit 32.4 % (39.6-49.0); Lymphocytes % 6.6 % (15.3-44.8); MPV 10.1 fL (7.6-11.3); RBC Red Blood Cell Count 3.47 M/uL (4.33-5.43)
[2020-01-04 04:48] LABS: BUN Blood Urea Nitrogen 16 mg/dL (7-18); Bicarbonate 27 mmol/L (21-32); Glucose Level 118 mg/dL (74-106); Magnesium 2.4 mg/dL (1.8-2.4); Potassium 4.4 mmol/L (3.5-5.1); Sodium Level 138 mmol/L (136-145)
[2020-01-04 05:21] LABS: Blood Morphology Comment NOT SEEN (NOT SEEN); Platelet Estimate ADEQ
[2020-01-04] MEDS: SOTALOL HCL 80 MG TAB PO SCH ×2 (06:41→17:00)
[2020-01-04] MEDS: ENSURE ENLIVE 237 ML CAN PO SCH ×3 (09:00→21:00)
--- NOTE | 2020-01-04 09:08 | EEG ---
CHART: [id number] TEST ID#: [id number] DATE OF STUDY: 01/01/2020 THE EEG WAS RECORDED PORTABLE IN THE PATIENT'S ROOM ON A 17 CHANNEL MACHINE. ELECTRODES WERE APPLIED IN THE USUAL MANNER USING THE INTERNATIONAL 10-20 SYSTEM. THE WAKING BACKGROUND RHYTHM IN THIS RECORD CONSISTS OF POORLY DEVELOPED AND POORLY ORGANIZED WAVES OF 8.5 HZ., MAXIMAL IN THE POSTERIOR HEAD REGIONS WHICH ATTENUATE NORMALLY WITH EYE OPENING. LOW-VOLTAGE 15-18 HZ ACTIVITY MIXED WITH LOW TO MODERATE VOLTAGE 1.5-3 HZ ACTIVITY IS EXPRESSED IN THE FRONTAL AND TEMPORAL REGIONS. THERE ARE NO FOCAL OR LATERALIZING FEATURES. NO EPILEPTIFORM ACTIVITY APPEARS. SLEEP OCCURRED NATURALLY. IN ADDITION NORMAL SLEEP PATTERNS ARE PRESENT. HYPERVENTILATION WAS NOT PERFORMED. PHOTIC STIMULATION PRODUCED NO DRIVING BILATERALLY. IMPRESSION: THIS IS A MILDLY ABNORMAL EEG DUE TO A MILDLY SLOW BACKGROUND. THIS IS A NON-SPECIFIC FINDING CONSISTENT WITH MILD DIFFUSE DISTURBANCE IN CEREBRAL FUNCTION.
[2020-01-04] MEDS: levETIRAcetam 500 MG in NA CHLORIDE 0.9% 100 ML IV SCH ×2 (09:23→22:08)
[2020-01-04] MEDS: APIXABAN 5 MG TABLET PO SCH ×2 (09:27→22:08)
[2020-01-04] MEDS: DOXYCYCLINE 100 MG CAP PO SCH ×2 (09:27→22:08)
[2020-01-04] MEDS: PANTOPRAZOLE 40MG TABLET PO SCH ×2 (09:28→17:00)
[2020-01-04] MEDS: predniSONE 20 MG TAB PO SCH ×2 (09:28→22:08)
[2020-01-04] MEDS: CEFTRIAXONE/SWI 2gm 2 GM/20 ML SYR IVP SCH (09:29)
--- NOTE | 2020-01-04 14:30 | P.PN ---
Date of Service: 01/04/20 Subjective: Patient is an 79-year-old male who has significant history of nephrolithiasis. I was consulted for possible COVID pneumonia. Covid test came back negative on 12/24. Patient examined at bedside. Reports decreased appetite and feels weak. Denies nausea, vomiting, diarrhea, shortness of breath, cough and burning/pain with urination. Patient also reports ambulating with PT today. Objective: Temp Pulse Resp BP Pulse Ox 97.1 F 96 H 18 125/90 96 01/04/20 12:00 01/04/20 12:00 01/04/20 12:00 01/04/20 12:01/04/20 12:00 Labs: Na 138, K 4.4, Albumin 2.4, WBC 15.4 ROS: General: Awake, alert, sitting upright in chair Lungs: Clear to auscultation Heart: S1,S2 Abdomen: Soft. Bowel sounds present. Extremities: No edema. Assessment And Plan: Covid 19 negative Leukocytosis Blood cultures 12/24 negative, repeat cultures 12/28 also negative Urine cultures negative CSF workup positive for gram positive rods, most likely contamination, awaiting full report. Spoke with Lab and they said the report will take several days to come back. Continue Doxy and Rocephin Will continue to monitor Patient discussed with Dr. Schultz
--- NOTE | 2020-01-04 17:27 | P.PN ---
Subjective Date of Service: 01/04/20 Chief Complaint: Fever and altered mental status Subjective: Other (Overall improved.) Physical Examination - Vital Signs Temperature: 97.6 F Blood Pressure: 158/73 Pulse: 58 Respirations: 18 Pulse Ox (%): 96 - Physical Exam General: Alert, Cooperative HEENT: Atraumatic Neck: Supple Respiratory: Clear to auscultation bilaterally, Normal air movement Cardiovascular: Normal pulses, Regular rate/rhythm Gastrointestinal: Normal bowel sounds Neurological: Normal speech, Normal strength at 5/5 x4 extr, Normal tone, Normal affect - Studies Medications List Reviewed: Yes Assessment & Plan Discharge Plan: Home Plan to discharge in: 24 Hours Physician Review Additional Text: Impression: Recurrent fever, CSF culture shows Gram negative rods Acute respiratory failure with hypoxia Acute metabolic encephalopathy likely related to above New onset atrial fibrillation status post cardioversion Hypertension Severe protein calorie malnutrition Plan: Still waiting on CSF cultures. Patient continues to improve. Infectious Disease has adjusted antibiotic therapy. Case discussed with infectious disease and cardiology. Await findings and determine if patient will require IV verses oral antibiotic therapy. Patient continues with sotalol and Eliquis. Continue physical therapy and nutrition. Anticipate discharge in the next 1-2 days once cultures have returned. Spoke with adoption social worker. Patient will likely require home health and physical therapy at discharge. Time Spent Managing Pts Care (In Minutes): 55
[2020-01-04] MEDS: ATORVASTATIN 10 MG TAB PO SCH (22:08)
[2020-01-04] MEDS: ACETAMINOPHEN 500 MG TAB PO PRN (22:13)
[2020-01-05] MEDS: NS KCL 20MEQ 20 MEQ/1,000 ML BAG IV SCH ×2 (05:20→17:43)
[2020-01-05] MEDS: SOTALOL HCL 80 MG TAB PO SCH ×2 (05:44→17:42)
[2020-01-05 06:15] LABS: Absolute Lymphocytes (CBC) 0.9 K/uL (0.7-4.9); Basophils % 0.1 % (0-1.3); Hematocrit 32.8 % (39.6-49.0); Lymphocytes % 6.3 % (15.3-44.8); RBC Red Blood Cell Count 3.49 M/uL (4.33-5.43)
[2020-01-05 06:51] LABS: BUN Blood Urea Nitrogen 14 mg/dL (7-18); Bicarbonate 25 mmol/L (21-32); Glucose Level 104 mg/dL (74-106); Magnesium 2.2 mg/dL (1.8-2.4); Potassium 4.7 mmol/L (3.5-5.1); Sodium Level 138 mmol/L (136-145)
[2020-01-05 08:47] LABS: Blood Morphology Comment NOTED (NOT SEEN); Platelet Estimate ADEQ
[2020-01-05] MEDS: predniSONE 20 MG TAB PO SCH ×2 (10:00→20:39)
[2020-01-05] MEDS: levETIRAcetam 500 MG in NA CHLORIDE 0.9% 100 ML IV SCH (10:02)
[2020-01-05] MEDS: APIXABAN 5 MG TABLET PO SCH ×2 (10:03→20:39)
[2020-01-05] MEDS: DOXYCYCLINE 100 MG CAP PO SCH ×2 (10:03→20:38)
[2020-01-05] MEDS: PANTOPRAZOLE 40MG TABLET PO SCH ×2 (10:03→17:43)
[2020-01-05] MEDS: ENSURE ENLIVE 237 ML CAN PO SCH ×3 (10:04→20:38)
[2020-01-05] MEDS: CEFTRIAXONE/SWI 2gm 2 GM/20 ML SYR IVP SCH (10:05)
--- NOTE | 2020-01-05 12:06 | P.PN ---
Subjective Date of Service: 01/05/20 Chief Complaint: Fever and altered mental status Subjective: Doing well <EdisAiden Victoria Last Filed: 01/05/20 12:04> Date of Service: 01/05/20 <Beny Cleary - Last Filed: 01/05/20 15:29> Review of Systems General: Unremarkable Eyes: Unremarkable ENT: Unremarkable Respiratory: Unremarkable Cardiovascular: Unremarkable Gastrointestinal: Unremarkable Genitourinary: Unremarkable Musculoskeletal: Unremarkable Integumentary: Unremarkable Neurological: Unremarkable Lymphatics: Unremarkable <Aiden Randhawa Last Filed: 01/05/20 12:04> Physical Examination - Vital Signs Temperature: 97.1 F Blood Pressure: 129/67 Pulse: 54 Respirations: 17 Pulse Ox (%): 98 - Physical Exam General: Alert, In no apparent distress, Oriented x3 HEENT: Atraumatic, Normocephalic Neck: Supple Respiratory: Clear to auscultation bilaterally, Normal air movement Capillary refill: <2 Seconds Gastrointestinal: Normal bowel sounds, Soft and benign - Studies Medications List Reviewed: Yes <Aiden Randhawa Filed: 01/05/20 12:04> Assessment & Plan Discharge Plan: Home Plan to discharge in: 24 Hours Physician Review: Patient Assessed, Agree with Above Assessment and Plan Physician Review Additional Text: Impression: Recurrent fever, CSF culture shows Gram negative rods Acute respiratory failure with hypoxia Acute metabolic encephalopathy likely related to above New onset atrial fibrillation status post cardioversion Hypertension Severe protein calorie malnutrition Plan: Still waiting on CSF cultures. Patient continues to improve. Infectious Disease has adjusted antibiotic therapy which will be continued. Case discussed with infectious disease and cardiology. Await findings and determine if patient will require IV verses oral antibiotic therapy. Patient continues with sotalol and Eliquis. Continue physical therapy and nutrition. Anticipate discharge in the next 1-2 days once cultures have returned. Patient will likely require home health and physical therapy at discharge. Time Spent Managing Pts Care (In Minutes): 55 <Aiden Randhawa Filed: 01/05/20 12:04> Physician Review Additional Text: Patient seen and examined with nurse practitioner Aiden Randhawa. Agree with exam and plan of care. Still waiting on CSF culture. Continue current medication. Spoke with social work has the patient will likely go home at discharge. <Beny Cleary Last Filed: 01/05/20 15:29>
--- NOTE | 2020-01-05 15:30 | P.PN ---
Date of Service: 01/05/20 Subjective: Patient is an 79-year-old male who has significant history of nephrolithiasis. I was consulted for possible COVID pneumonia. Covid test came back negative on 12/24. Patient examined at bedside. Reports decreased appetite and feels weak. Denies nausea, vomiting, diarrhea, shortness of breath, cough and burning/pain with urination. Patient also reports ambulating with PT today. Objective: Temp Pulse Resp BP Pulse Ox 97.1 F 54 17 129/67 98 01/05/20 12:06 01/05/20 12:06 01/05/20 12:06 01/05/20 12:06 01/05/20 12:06 Labs: Na 138, K 4.7, Albumin 2.4, WBC 14.2 ROS: General: Awake, alert, lying in bed Lungs: Clear to auscultation Heart: S1,S2 Abdomen: Soft. Bowel sounds present. Extremities: No edema. Assessment And Plan: Covid 19 negative Leukocytosis improving Blood cultures 12/24 negative, repeat cultures 12/28 also negative Urine cultures negative CSF workup positive for gram positive rods, most likely contamination, awaiting full report. Spoke with Lab and they said the report will take several days to come back. Continue Doxy and Rocephin Will continue to monitor Patient discussed with Dr. Schultz
[2020-01-05] MEDS: levETIRAcetam 500 MG TAB PO SCH (20:39)
[2020-01-05] MEDS: ATORVASTATIN 10 MG TAB PO SCH (20:39)
[2020-01-05] MEDS: ACETAMINOPHEN 500 MG TAB PO PRN (20:40)
[2020-01-06] MEDS: NS KCL 20MEQ 20 MEQ/1,000 ML BAG IV SCH (05:56)
[2020-01-06] MEDS: SOTALOL HCL 80 MG TAB PO SCH ×2 (05:56→17:23)
[2020-01-06] MEDS: predniSONE 20 MG TAB PO SCH (08:40)
[2020-01-06] MEDS: levETIRAcetam 500 MG TAB PO SCH ×2 (08:40→20:43)
[2020-01-06] MEDS: DOXYCYCLINE 100 MG CAP PO SCH ×2 (08:40→20:43)
[2020-01-06] MEDS: PANTOPRAZOLE 40MG TABLET PO SCH ×2 (08:40→17:23)
[2020-01-06] MEDS: APIXABAN 5 MG TABLET PO SCH ×2 (08:40→20:43)
[2020-01-06] MEDS: ENSURE ENLIVE 237 ML CAN PO SCH ×3 (08:41→20:55)
[2020-01-06] MEDS: CEFTRIAXONE/SWI 2gm 2 GM/20 ML SYR IVP SCH (09:00)
--- NOTE | 2020-01-06 12:17 | P.PN ---
Subjective Date of Service: 01/06/20 Chief Complaint: Fever and altered mental status Subjective: Improving, Doing well Physical Examination - Vital Signs Temperature: 97.4 F Blood Pressure: 127/60 Pulse: 55 Respirations: 18 Pulse Ox (%): 95 - Physical Exam General: Alert, In no apparent distress, Cooperative HEENT: Atraumatic Neck: Supple Respiratory: Clear to auscultation bilaterally, Normal air movement Cardiovascular: Normal pulses, Regular rate/rhythm Gastrointestinal: Normal bowel sounds, Soft and benign, Non-distended Neurological: Normal speech, Normal strength at 5/5 x4 extr, Normal tone, Normal affect - Studies Medications List Reviewed: Yes Assessment & Plan Discharge Plan: Home Plan to discharge in: 24 Hours Physician Review Additional Text: Impression: Recurrent fever, CSF culture shows Gram negative rods Acute respiratory failure with hypoxia Acute metabolic encephalopathy likely related to above New onset atrial fibrillation status post cardioversion Hypertension Severe protein calorie malnutrition Plan: Recurrent fever, CSF culture shows Gram negative rods: Patient remains afebrile. Mentation improved. Case discussed with infectious disease yesterday. Continue antibiotic therapy. Await CSF cultures that of the been sent out to [place]. Patient remains on doxycycline and Rocephin. Await further recommendations from Infectious Disease once CSF cultures come back. Continue physical therapy. Encourage ambulation. Anticipate home within the next 48 hr. Patient also remains on Keppra. Acute respiratory failure with hypoxia: This has improved. Patient now off oxygen. Will wean off prednisone. Acute metabolic encephalopathy likely related to above: Mentation improved. Continue with antibiotic therapy. New onset atrial fibrillation status post cardioversion: Patient has done well. Continue sotalol and Betapace. Hypertension: Continue medication. Severe protein calorie malnutrition: Encourage oral intake. Continue with supplementation. Time Spent Managing Pts Care (In Minutes): 55
[2020-01-06] MEDS: ATORVASTATIN 10 MG TAB PO SCH (20:43)
[2020-01-06] MEDS: ACETAMINOPHEN 500 MG TAB PO PRN (20:44)
[2020-01-07] MEDS: SOTALOL HCL 80 MG TAB PO SCH ×2 (06:08→18:20)
[2020-01-07] MEDS: APIXABAN 5 MG TABLET PO SCH ×2 (09:15→21:20)
[2020-01-07] MEDS: predniSONE 20 MG TAB PO SCH (09:15)
[2020-01-07] MEDS: DOXYCYCLINE 100 MG CAP PO SCH ×2 (09:15→21:20)
[2020-01-07] MEDS: PANTOPRAZOLE 40MG TABLET PO SCH ×2 (09:15→16:45)
[2020-01-07] MEDS: CEFTRIAXONE/SWI 2gm 2 GM/20 ML SYR IVP SCH (09:15)
[2020-01-07] MEDS: levETIRAcetam 500 MG TAB PO SCH ×2 (09:15→21:20)
[2020-01-07] MEDS: ENSURE ENLIVE 237 ML CAN PO SCH ×3 (09:16→21:00)
--- NOTE | 2020-01-07 11:46 | P.PN ---
Subjective Date of Service: 01/07/20 Chief Complaint: Fever and altered mental status Subjective: Doing well, Other (Asking when he will go home. Still waiting on CSF culture final.) Physical Examination - Vital Signs Temperature: 97.5 F Blood Pressure: 100/58 Pulse: 53 Respirations: 18 Pulse Ox (%): 97 - Physical Exam General: Alert, In no apparent distress, Oriented x3, Cooperative HEENT: Atraumatic Neck: Supple Respiratory: Clear to auscultation bilaterally, Normal air movement Cardiovascular: Normal pulses, Regular rate/rhythm Gastrointestinal: Normal bowel sounds Integumentary: No tenderness/swelling, No erythema, No warmth, No cyanosis Neurological: Normal speech, Normal strength at 5/5 x4 extr, Normal tone, Normal affect - Studies Medications List Reviewed: Yes Assessment & Plan Discharge Plan: Home Plan to discharge in: 24 Hours Physician Review Additional Text: Impression: Recurrent fever, CSF culture shows Gram negative rods Acute respiratory failure with hypoxia Acute metabolic encephalopathy likely related to above New onset atrial fibrillation status post cardioversion Hypertension Severe protein calorie malnutrition Plan: Recurrent fever, CSF culture shows Gram negative rods: Patient remains afebrile. Patient overall improved. Still waiting on CSF culture. CSF cultures that of the been sent out to [place]. Spoke with infectious disease. Patient remains on doxycycline and Rocephin. Continue physical therapy. Encourage ambulation. Anticipate home within the next 48 hr. Patient also remains on Keppra as well. Acute respiratory failure with hypoxia: This has improved. Patient now off oxygen. Will wean off prednisone. Acute metabolic encephalopathy likely related to above: Mentation improved. Continue with antibiotic therapy. New onset atrial fibrillation status post cardioversion: Patient has done well. Continue sotalol and Betapace. Hypertension: Continue medication. Severe protein calorie malnutrition: Encourage oral intake. Continue with supplementation. Time Spent Managing Pts Care (In Minutes): 55
[2020-01-07] MEDS: ATORVASTATIN 10 MG TAB PO SCH (21:20)
[2020-01-07] MEDS: ACETAMINOPHEN 500 MG TAB PO PRN (21:20)
[2020-01-08 04:36] LABS: Absolute Lymphocytes (CBC) 2.4 K/uL (0.7-4.9); Basophils % 0.2 % (0-1.3); Hematocrit 36.5 % (39.6-49.0); Lymphocytes % 20.2 % (15.3-44.8); MPV 9.8 fL (7.6-11.3)
[2020-01-08] MEDS: SOTALOL HCL 80 MG TAB PO SCH ×2 (05:40→17:28)
[2020-01-08] MEDS: APIXABAN 5 MG TABLET PO SCH ×2 (09:00→21:17)
[2020-01-08] MEDS: PANTOPRAZOLE 40MG TABLET PO SCH ×2 (09:00→17:26)
[2020-01-08] MEDS: ENSURE ENLIVE 237 ML CAN PO SCH ×3 (09:00→21:17)
[2020-01-08] MEDS: levETIRAcetam 500 MG TAB PO SCH ×2 (09:00→21:17)
[2020-01-08] MEDS: DOXYCYCLINE 100 MG CAP PO SCH ×2 (09:00→21:17)
[2020-01-08] MEDS: predniSONE 20 MG TAB PO SCH (09:00)
[2020-01-08] MEDS: CEFTRIAXONE/SWI 2gm 2 GM/20 ML SYR IVP SCH (09:01)
--- NOTE | 2020-01-08 12:20 | P.PN ---
Subjective Date of Service: 01/08/20 Chief Complaint: Fever and altered mental status Subjective: No C/O voiced, Improving <EdisAiden - Last Filed: 01/08/20 12:19> Date of Service: 01/08/20 Subjective: Other (Patient seen and examined with nurse practitioner.) <Beny Cleary - Last Filed: 01/08/20 16:32> Review of Systems Unremarkable <MallikaaraseliAiden - Last Filed: 01/08/20 12:19> Physical Examination - Vital Signs Temperature: 99.3 F Blood Pressure: 100/60 Pulse: 52 Respirations: 16 Pulse Ox (%): 97 - Physical Exam General: Alert, In no apparent distress, Oriented x3 HEENT: Atraumatic, Normocephalic Neck: Supple Respiratory: Clear to auscultation bilaterally, Normal air movement Cardiovascular: No edema Capillary refill: <2 Seconds Gastrointestinal: Normal bowel sounds Neurological: Normal speech - Studies Medications List Reviewed: Yes <Aiden Randhawa - Last Filed: 01/08/20 12:19> - Physical Exam Cardiovascular: Normal pulses, Regular rate/rhythm Neurological: Normal speech, Normal strength at 5/5 x4 extr, Normal tone, Normal affect - Studies Medications List Reviewed: Yes <Beny Cleary - Last Filed: 01/08/20 16:32> Assessment & Plan Discharge Plan: Home Plan to discharge in: 24 Hours Physician Review: Patient Assessed, Agree with Above Assessment and Plan Physician Review Additional Text: Impression: Recurrent fever, CSF culture shows Gram negative rods Acute respiratory failure with hypoxia Acute metabolic encephalopathy likely related to above New onset atrial fibrillation status post cardioversion Hypertension Severe protein calorie malnutrition Plan: Recurrent fever, CSF culture shows Gram negative rods: Patient remains afebrile. Patient overall improved. Still waiting on CSF culture. CSF cultures that of the been sent out to [place]. Patient remains on doxycycline and Rocephin. Continue physical therapy. Encourage ambulation. Anticipate home within the next 24 hr. Will check with the lab today to see where we can expect to get results from the CSF culture. Acute respiratory failure with hypoxia: This has improved. Patient now off oxygen. Will wean off prednisone. Acute metabolic encephalopathy likely related to above: Mentation improved. Continue with antibiotic therapy. New onset atrial fibrillation status post cardioversion: Patient has done well. Continue sotalol and Betapace. Hypertension: Continue medication. Severe protein calorie malnutrition: Encourage oral intake. Continue with supplementation. Time Spent Managing Pts Care (In Minutes): 55 <Aiden Randhawa - Last Filed: 01/08/20 12:19> Physician Review Additional Text: Patient seen examined with nurse practitioner. Case discussed at length. Agree with plan of care. Still waiting on CSF culture. Spoke with microbiology. Hopefully CSF cultures will return tomorrow. Once this has been finalized will discuss with infectious disease on plan of care of antibiotic therapy and duration. Anticipate discharge home within the next 24 hr. I will turn the service over to the hospitalist team. I will go over the plan of care with him. <Beny Cleary - Last Filed: 01/08/20 16:32>
--- NOTE | 2020-01-08 16:39 | P.PN ---
Date of Service: 01/08/20 Subjective: Patient is an 79-year-old male who has significant history of nephrolithiasis. I was consulted for possible COVID pneumonia. Covid test came back negative on 12/24. Patient examined at bedside. Reports decreased appetite and feels weak. Denies nausea, vomiting, diarrhea, shortness of breath, cough and burning/pain with urination. Patient ambulated twice with PT this shift. Objective: Temp Pulse Resp BP Pulse Ox 98.1 F 58 16 94/62 96 01/08/20 16:00 01/08/20 16:00 01/08/20 16:00 01/08/20 16:00 01/08/20 16:00 Labs: WBC 12.0, Hgb 12.3, Hct 36.5. No new chemistry labs available ROS: General: Awake, alert, Sitting upright in chair Lungs: Clear to auscultation Heart: S1,S2 Abdomen: Soft. Bowel sounds present. Extremities: No edema. Assessment And Plan: Covid 19 negative Leukocytosis improving Blood cultures 12/24 negative, repeat cultures 12/28 also negative Urine cultures negative CSF workup positive for gram positive rods, most likely contamination, awaiting full report. Continue Doxy and Rocephin Will continue to monitor Patient discussed with Dr. Schultz
[2020-01-08] MEDS: ATORVASTATIN 10 MG TAB PO SCH (21:17)
[2020-01-09] MEDS: SOTALOL HCL 80 MG TAB PO SCH ×2 (06:00→17:00)
[2020-01-09] MEDS: APIXABAN 5 MG TABLET PO SCH ×2 (08:10→20:52)
[2020-01-09] MEDS: DOXYCYCLINE 100 MG CAP PO SCH ×2 (08:10→20:52)
[2020-01-09] MEDS: predniSONE 20 MG TAB PO SCH (08:10)
[2020-01-09] MEDS: PANTOPRAZOLE 40MG TABLET PO SCH ×2 (08:10→15:40)
[2020-01-09] MEDS: ENSURE ENLIVE 237 ML CAN PO SCH ×3 (08:10→20:52)
[2020-01-09] MEDS: levETIRAcetam 500 MG TAB PO SCH ×2 (08:10→20:52)
[2020-01-09] MEDS: CEFTRIAXONE/SWI 2gm 2 GM/20 ML SYR IVP SCH (08:11)
[2020-01-09 08:59] LABS: Absolute Lymphocytes (CBC) 2.4 K/uL (0.7-4.9); Basophils % 0.3 % (0-1.3); Hematocrit 38.6 % (39.6-49.0); Lymphocytes % 20.3 % (15.3-44.8); MPV 9.9 fL (7.6-11.3); RBC Red Blood Cell Count 4.03 M/uL (4.33-5.43)
[2020-01-09 10:27] VITALS: O2SAT 97
--- NOTE | 2020-01-09 12:41 | P.PN ---
Subjective Date of Service: 01/09/20 Chief Complaint: Fever and altered mental status Subjective: No new changes (Patient is afebrile, in no acute distress. He is requesting to leave. He has CSF culture results pending) Physical Examination - Vital Signs Temperature: 97.5 F Blood Pressure: 135/61 Pulse: 56 Respirations: 18 Pulse Ox (%): 95 - Physical Exam General: Alert, In no apparent distress, Cooperative HEENT: Atraumatic, Normocephalic Neck: Supple Respiratory: Clear to auscultation bilaterally, Normal air movement Cardiovascular: No edema, Normal pulses, Regular rate/rhythm, Normal S1 S2 Gastrointestinal: Normal bowel sounds, Soft and benign, Non-distended Musculoskeletal: No clubbing, No swelling, No contractures, No erythema, No tenderness, No warmth Neurological: Normal speech, Normal tone, Sensation intact, Normal affect - Studies Medications List Reviewed: Yes Assessment & Plan Physician Review: Patient Assessed, Agree with Above Assessment and Plan Physician Review Additional Text: Assessment Patient is a 79 year old male who was admitted with fever of unknown origin. Infectious work up was remarkable for a positive CSF culture, which is showing gram negative rods. Specimen were sent to a reference lab in [place] for microbiology. In the meantime, he is still on ceftriaxone and doxycycline. He is afebrile with improved leukocytosis. Other issues addressed during this admission include a new onset atrial fibrillation Fever of unknown origin Atrial fibrillation GERD plan Continue ceftriaxone and doxycycline until cultures become available Continue sotalol and apixaban for CVA prevention Patient is getting frustrated and would need encouragement from primary team
[2020-01-09] MEDS ORDERED: POLYETHYL GLY 3350 17 GM/DOSE PO PRN (13:58)
--- NOTE | 2020-01-09 16:02 | P.PN ---
Date of Service: 01/09/20 Subjective: Patient is an 79-year-old male who has significant history of nephrolithiasis. I was consulted for possible COVID pneumonia. Covid test came back negative on 12/24. Patient examined at bedside. Reports still weak but able to ambulate with PT. Denies nausea, vomiting, diarrhea, shortness of breath, cough and burning/pain with urination. Patient agitated and wants to be discharged home Objective: Temp Pulse Resp BP Pulse Ox 97.5 F 56 18 135/61 95 01/09/20 12:44 01/09/20 12:44 01/09/20 12:44 01/09/20 12:44 01/09/20 12:44 Labs: WBC 11.6, Hgb 12.9, Hct 38.6. No new chemistry labs available ROS: General: Awake, alert, lying in bed Lungs: Clear to auscultation Heart: S1,S2 Abdomen: Soft. Bowel sounds present. Extremities: No edema. Assessment And Plan: Covid 19 negative Leukocytosis improving Blood cultures 12/24 negative, repeat cultures 12/28 also negative Urine cultures negative CSF workup positive for gram positive rods, most likely contamination, full report still pending Continue Doxy and Rocephin Will continue to monitor Patient discussed with Dr. Schultz
--- NOTE | 2020-01-09 16:10 | RAD REPORT ---
EXAM DESCRIPTION: RAD - Chest Pa And Lat (2 Views) - 01/09/2020 4:04 pm CLINICAL HISTORY: Shortness of breath, difficulty breathing COMPARISON: Portable December 28, CT chest December 24 TECHNIQUE: Frontal and lateral views of the chest were obtained. FINDINGS: The lungs are clear. Chronic interstitial lung changes are present. Multiple pleural plaq ues are present similar to prior imaging. Heart size is normal and central vasculature is within norm al limits. No pleural effusion or pneumothorax seen. No acute bony finding noted. No aortic abnorm ality. IMPRESSION: Chronic pleural and parenchymal disease similar to comparison. No acute finding.
[2020-01-09] MEDS: ATORVASTATIN 10 MG TAB PO SCH (20:52)
[2020-01-10] MEDS: SOTALOL HCL 80 MG TAB PO SCH (06:41)
[2020-01-10] MEDS: CEFTRIAXONE/SWI 2gm 2 GM/20 ML SYR IVP SCH (09:00)
[2020-01-10] MEDS: predniSONE 20 MG TAB PO SCH (09:20)
[2020-01-10] MEDS: levETIRAcetam 500 MG TAB PO SCH (09:20)
[2020-01-10] MEDS: APIXABAN 5 MG TABLET PO SCH (09:20)
[2020-01-10] MEDS: ENSURE ENLIVE 237 ML CAN PO SCH (09:21)
[2020-01-10] MEDS: PANTOPRAZOLE 40MG TABLET PO SCH (09:21)
[2020-01-10] MEDS: DOXYCYCLINE 100 MG CAP PO SCH (09:21)
--- NOTE | 2020-01-10 10:47 | P.DS ---
Admission Date: 12/25/19 Discharge Date: 01/10/20 Disposition: ROUTINE DISCHARGE Discharge Condition: GOOD Reason for Admission: Fever and altered mental status - Problems (1) Fever Current Visit: Yes Status: Acute (2) Hyponatremia Current Visit: Yes Status: Acute (3) Metabolic encephalopathy Current Visit: Yes Status: Acute (4) Abnormal CT scan, chest Current Visit: No Status: Acute (5) Carotid arterial disease Current Visit: No Status: Acute (6) Dizziness Onset Date: 09/15/16 Current Visit: No Status: Acute (7) Fatigue Onset Date: 09/15/16 Current Visit: No Status: Acute Qualifiers: Fatigue type: unspecified Qualified Code(s): R53.83 - Other fatigue (8) Hyperlipidemia Current Visit: No Status: Acute Qualifiers: Hyperlipidemia type: other hyperlipidemia Hospital Course: Patient is a 79 year old male with a HLD, atrial fibrillation and CAD. He was admitted with fever of unknown origin. Infectious work up was largely unremarkable except for CSF which revealed gram positive rods. CSF samples were transferred to a reference labs for final cultures. In the meantime, patient has done well on ceftriaxone and doxycycline. He has been afebrile. Patient has been in the hospital for at least 2 weeks. He will be discharged with instructions to return in case of worsening symptoms. Vital Signs/Physical Exam: Temp Pulse Resp BP Pulse Ox 97.3 F 57 16 100/59 L 96 01/10/20 04:00 01/10/20 04:00 01/10/20 04:00 01/10/20 04:00 01/10/20 04:00 General: Alert, In no apparent distress, Cooperative HEENT: Atraumatic, Normocephalic, EOMI Neck: Supple Respiratory: Clear to auscultation bilaterally, Normal air movement Cardiovascular: No edema, Regular rate/rhythm, Normal S1 S2 Gastrointestinal: Normal bowel sounds, Soft and benign, Non-distended Musculoskeletal: No clubbing, No swelling, No contractures, No erythema, No tenderness, No warmth Integumentary: No rashes, No breakdown, No significant lesion, No tenderness/swelling, No erythema, No warmth, No cyanosis Neurological: Normal speech, Sensation intact, Normal affect Laboratory Data at Discharge: WBC 11.6 K/uL (4.3-10.9) H 01/09/20 08:14 Hgb 12.9 g/dL (13.6-17.9) L 01/09/20 08:14 Hct 38.6 % (39.6-49.0) L 01/09/20 08:14 Plt Count 303 K/uL (152-406) 01/09/20 08:14 PT 12.4 SECONDS (9.5-12.5) 12/25/19 14:44 INR 1.05 12/25/19 14:44 APTT 29.2 SECONDS (24.3-36.9) 12/25/19 14:44 Sodium 138 mmol/L (136-145) 01/05/20 05:02 Potassium 4.7 mmol/L (3.5-5.1) 01/05/20 05:02 BUN 14 mg/dL (7-18) 01/05/20 05:02 Creatinine 0.69 mg/dL (0.55-1.3) 01/05/20 05:02 Glucose 104 mg/dL (74-106) 01/05/20 05:02 Magnesium 2.2 mg/dL (1.8-2.4) 01/05/20 05:02 Total Bilirubin 0.5 mg/dL (0.2-1.0) 01/01/20 03:37 AST 43 U/L (15-37) H 01/01/20 03:37 ALT 52 U/L (12-78) 01/01/20 03:37 Alkaline Phosphatase 69 U/L (45-117) 01/01/20 03:37 Troponin I 0.06 ng/mL (0.0-0.045) H 12/28/19 03:41 Lipase 27 U/L (73-393) L 12/25/19 14:44 Home Medications: Apixaban [Eliquis] 5 mg PO BID #60 tablet 01/01/20 Atorvastatin Calcium [Lipitor*] 10 mg PO BEDTIME #30 tab 01/01/20 Doxycycline Hyclate 100 mg PO BID #28 tablet 01/01/20 Sotalol HCl [Betapace*] 80 mg PO BID 6AM 6PM #60 tab 01/01/20 predniSONE [Prednisone*] 20 mg PO SEECOM #10 tab 01/01/20 New Medications: Sotalol HCl [Betapace*] 80 mg PO BID 6AM 6PM #60 tab Doxycycline Hyclate 100 mg PO BID #28 tablet Apixaban [Eliquis] 5 mg PO BID #60 tablet Atorvastatin Calcium [Lipitor*] 10 mg PO BEDTIME #30 tab predniSONE [Prednisone*] 20 mg PO SEECOM #10 tab Patient Discharge Instructions: f/up With primary care physician in 2-3 days. Follow up with lisw Dr. Green in 2 weeks. Follow up with infectious disease Dr. Schultz in 2 weeks. follow up w Neurologist Dr. Bah in 2 weeks. Return to ER for worsening condition Diet: AHA Activity: Fall precautions
[2020-01-10 12:04] VITALS: BP 90/55; TEMP 98.6
== END 2020-01-10 12:33 | disposition home health service (06) | DRG 871 ==
LOC: ER 14:11 → ERHOLD 18:35 → 4TH 19:58 → 2ND 22:37 → 4TH 12-29 04:58 → 2ND 01-06 01:32
PROVIDERS: ADMIT Internal Medicine; ATTEND Internal Medicine
PROC: 009U3ZX Drainage of Spinal Canal, Percutaneous Approach, Diagnostic (ICD-10-PCS; 2019-12-27)
PROC: 8E0ZXY6 Isolation (ICD-10-PCS; 2019-12-29)
PROC: 5A2204Z Restoration of Cardiac Rhythm, Single (ICD-10-PCS; principal; 2020-01-02)
DX: A41.9 Sepsis, unspecified organism (principal); G93.41 Metabolic encephalopathy; J96.01 Acute respiratory failure with hypoxia; E43 Unspecified severe protein-calorie malnutrition; E87.1 Hypo-osmolality and hyponatremia; D61.818 Other pancytopenia; A69.20 Lyme disease, unspecified; I48.91 Unspecified atrial fibrillation; K21.9 Gastro-esophageal reflux disease without esophagitis; I10 Essential (primary) hypertension; E87.6 Hypokalemia; E87.70 Fluid overload, unspecified; E78.5 Hyperlipidemia, unspecified; R93.89 Abnormal findings on diagnostic imaging of other specified body structures; Z79.01 Long term (current) use of anticoagulants; Z20.828 Contact with and (suspected) exposure to other viral communicable diseases; Z79.899 Other long term (current) drug therapy; Z68.25 Body mass index [BMI] 25.0-25.9, adult; Z79.52 Long term (current) use of systemic steroids; Z91.018 Allergy to other foods; Z60.2 Problems related to living alone
CPT/HCPCS: 36415; 70450; 71045; 71046; 71275; 77003; 80048; 80053; 80076; 80202; 81003; 81015; 82728; 82805; 83605; 83690; 83735; 84132; 84145; 84443; 84484; 85025; 85379; 85610; 85652; 85730; 86140; 86592; 86618; 87040; 87070; 87081; 87086; 87088; 87804; 89050; 92960; 93005; 93306; 94640; 94760; 95816; 96372; 97112; 97116; 97161; 97164; 97530; 99285; J0360; J0456; J0692; J0696; J1650; J1940; J1953; J2250; J2920; J7030; J7040; J7120; J7512; Q9967; U0002

== ENCOUNTER 2022-09-20 05:26 | Emergency (ER) | payer OTHER ==
--- OUTSIDE RECORDS SUMMARY | 2022-09-20 05:31 | XMS REPORT | Continuity of Care Document ---
:1940 Author Organization [facility] t Address [address] [place] [address] Care Team Providers Name Role Phone Nellie Fisher Attending Clinician Unavailable Payers Payer Name Policy Type Policy Number Effective Date Expiration Date [facility] [id number] 2021 [facility] ADVANTAGE 00:00:00 - [facility] MEDICARE MB [id number] [facility] NOVITAS - [facility] MEDICARE MB [id number] [facility] NOVITAS [facility] MEDICARE MB [id number] [facility] Problems Condition Condition Condition Status Onset Resolution Last Treating Co mments Source Name Details Category Date Date Treatment Clinician Date Nonvenomou Insect Problem Commo n s insect bite Spirit bite of (nonvenomo - [facility] trunk us) of [facility] infection wall, Medical initial Center encounter [id number] 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, left - [facility] shoulder [facility] [id number] 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, - [facility] right [facility] [id number] Leukocytos Problem Co mmon is, Spirit unspecifie - [facility] d type [facility] Vitreous Floaters Problem Commo n floaters Spirit [facility] Computed Abnormal Problem Commo n tomography CT scan Spiri t result - [facility] abnormal [facility] Anxiety Anxiety Problem [facility] Primary Primary Problem Common insomnia insomnia Spirit - [facility] Hearing Hearing Problem Common loss loss [facility] Hyperlipid Hyperlipid Problem C ommon emia emia [facility] [id number] Screening Problem Com mon PSA [facility] (prostate - [facility] specific St antigen) [facility] [id number] Seasonal Problem Comm on allergies [facility] [id number] Atrial Problem Common fibrillati Spirit on, - [facility] unspecifie [facility] [id number] Gastroesop Problem Co mmon hageal Spirit reflux - [facility] disease, [facility] esophagiti Center s present [id number] Blood Problem Common tests for [facility] routine [facility] general [facility] examinatio [facility] [id number] Macular Problem Commo n degenerati Spirit on of [facility], [facility] [place] [facility] Problem Commo n foot [facility] [id number] 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 Social History Social Habit Start Date Stop Date Quantity Comments Source History of Tobacco [facility] - Use [facility] Sex Assigned At [birth year] [facility] 00:00:00 00:00:00 [facility] Smoking Status Start Date Stop Date Source Former Smoker 2022-08-19 00:00:00 2022-08-19 00:00:00 [facility]irit [facility] Medications Ordered Filled Start Stop Current Ordering Indication Dosage Frequency Signature Comments Components Source Medication Medication Date Date Medication? Clinician (SIG) Name Name Acetaminoph Acetaminoph 2021-08 No 1{capsu QID Acetaminop en 500 MG en 500 MG 08-31 le_as_n hen 500 MG 00:00: eeded} 00 Vitamin D-3 Vitamin D-3 2021-08 No 1{table QD Vitamin 125 MCG 125 MCG 1-02 t} D-3 125 (5000 UT) (5000 UT) 00:00: MCG (5000 00 UT) Calcium 600 Calcium 600 2021-08 No 2{table QD Calcium MG MG -02 t} 600 MG 00:00: 00 Acetaminoph Acetaminoph 2021-08 No 1{capsu QID Acetaminop en 500 MG en 500 MG 08-31 le_as_n hen 500 MG 00:00: eeded} 00 Vitamin D-3 Vitamin D-3 2021-08 No 1{table QD Vitamin 125 MCG 125 MCG -02 t} D-3 125 (5000 UT) (5000 UT) 00:00: MCG (5000 00 UT) Calcium 600 Calcium 600 2021-08 No 2{table QD Calcium MG MG -02 t} 600 MG 00:00: 00 Acetaminoph Acetaminoph 2021-08 No 1{capsu QID Acetaminop en 500 MG en 500 MG 08-31 le_as_n hen 500 MG 00:00: eeded} 00 Vitamin D-3 Vitamin D-3 2021-08 No 1{table QD Vitamin 125 MCG 125 MCG -02 t} D-3 125 (5000 UT) (5000 UT) 00:00: MCG (5000 00 UT) Calcium 600 Calcium 600 2021-08 No 2{table QD Calcium MG MG -02 t} 600 MG 00:00: 00 Vitamin D-3 Vitamin D-3 2021-08 No 1{table QD Vitamin 125 MCG 125 MCG -02 t} D-3 125 (5000 UT) (5000 UT) 00:00: MCG (5000 00 UT) Calcium 600 Calcium 600 2021-08 No 2{table QD Calcium MG MG -02 t} 600 MG 00:00: 00 Acetaminoph Acetaminoph 2021-08 No 1{capsu QID Acetaminop en 500 MG en 500 MG 02 le_as_n hen 500 MG 00:00: eeded} 00 Vitamin D-3 Vitamin D-3 2021-08 No 1{table QD Vitamin 125 MCG 125 MCG 1-02 t} D-3 125 (5000 UT) (5000 UT) 00:00: MCG (5000 00 UT) Calcium 600 Calcium 600 2021-08 No 2{table QD Calcium MG MG 1-02 t} 600 MG 00:00: 00 Acetaminoph Acetaminoph 2021-08 No 1{capsu QID Acetaminop en 500 MG en 500 MG 08-31 le_as_n hen 500 MG 00:00: eeded} 00 Vitamin D-3 Vitamin D-3 2021-08 No 1{table QD Vitamin 125 MCG 125 MCG 02 t} D-3 125 (5000 UT) (5000 UT) 00:00: MCG (5000 00 UT) Calcium 600 Calcium 600 2021-08 No 2{table QD Calcium MG MG 02 t} 600 MG 00:00: 00 Acetaminoph Acetaminoph 2021-08 No 1{capsu QID Acetaminop en 500 MG en 500 MG 08-31 le_as_n hen 500 MG 00:00: eeded} 00 Vitamin D-3 Vitamin D-3 2021-08 No 1{table QD Vitamin 125 MCG 125 MCG 08-31 t} D-3 125 (5000 UT) (5000 UT) 00:00: MCG (5000 00 UT) Acetaminoph Acetaminoph 2021-08 No 1{capsu QID Acetaminop en 500 MG en 500 MG 08-31 le_as_n hen 500 MG 00:00: eeded} 00 Calcium 600 Calcium 600 2021-08 No 2{table QD Calcium MG MG 08-31 t} 600 MG 00:00: [facility]08 No 40mg Common (Triamcinol (Triamcinol 0-27 S pirit one) one) 00:00: - [facility] Kavonalog 2021-08 No 40mg Common (Triamcinol (Triamcinol 0-27 S pirit one) one) 00:00: - [facility] Kenalog 2021-08 No 40mg Common (Triamcinol (Triamcinol 0-27 S pirit one) one) 00:00: - [facility] Kenalog 2021-08 No 40mg Common (Triamcinol (Triamcinol 0-27 S pirit one) one) 00:00: - [facility] Kenalog 2021-08 No 40mg Common (Triamcinol (Triamcinol 0-27 S pirit one) one) 00:00: - [facility] 00 [facility] Matt Gutierrez 2021- No 40mg Common (Triamcinol (Triamcinol 0-27 S pirit one) one) 00:00: - [facility] 00 [facility] Matt Gutierrez 2021- No 40mg Common (Triamcinol (Triamcinol 0-27 S pirit one) one) 00:00: - [facility] 00 [facility] Matt Gutierrez 2021-08 No 40mg Common (Triamcinol (Triamcinol 0-27 S pirit one) one) 00:00: - [facility] 00 [facility] Diclofenac Diclofenac 2021-1 2- No Diclofenac Sodium 1 % Sodium 1 % 0-27 12-25 Sodium 1 % 00:00: 00:00 00 :00 Diclofenac Diclofenac 2-1 2- No Diclofenac Sodium 1 % Sodium 1 % 0-27 12-25 Sodium 1 % 00:00: 00:00 00 :00 Diclofenac Diclofenac 2-1 2- No Diclofenac Sodium 1 % Sodium 1 % 0-27 12-25 Sodium 1 % 00:00: 00:00 00 :00 Diclofenac Diclofenac 2-1 2- No Diclofenac Sodium 1 % Sodium 1 % 0-27 12-25 Sodium 1 % 00:00: 00:00 00 :00 Diclofenac Diclofenac 2-1 2- No Diclofenac Sodium 1 % Sodium 1 % 0-27 12-25 Sodium 1 % 00:00: 00:00 00 :00 Diclofenac Diclofenac 2-1 2- No Diclofenac Sodium 1 % Sodium 1 % 0-27 12-25 Sodium 1 % 00:00: 00:00 00 :00 Diclofenac Diclofenac 2-1 2- No Diclofenac Sodium 1 % Sodium 1 % 0-27 12-25 Sodium 1 % 00:00: 00:00 00 :00 Benzonatate Benzonatate 2-0 2- No 1{capsu Benzonatat 200 MG 200 MG -12 01-23 le_as_n e 200 MG 00:00: 00:00 eeded} 00 :00 Benzonatate Benzonatate 2-0 2- No 1{capsu Benzonatat 200 MG 200 MG 5-16 05-23 le_as_n e 200 MG 00:00: 00:00 eeded} 00 :00 methylPREDN methylPREDN 0 2021- No QD methylPRED ISolone 4 ISolone 4 -12 01- NISolone 4 MG MG 00:00: 00:00 MG 00 :00 methylPREDN methylPREDN 2021- No QD methylPRED ISolone 4 ISolone 4 -12 01- NISolone 4 MG MG 00:00: 00:00 MG 00 :00 Azithromyci Azithromyci 2021- No QD Azithromyc n 250 MG n 250 MG 5-16 05-21 in 250 MG 00:00: 00:00 00 :00 Azithromyci Azithromyci 0 2021- No QD Azithromyc n 250 MG n 250 MG 5-16 05-21 in 250 MG 00:00: 00:00 00 :00 Flonase Flonase 2018-0 Yes Na Fisher 2 sprays Common 1-15 in each Spirit 00:00: nostril - [facility] 00 [facility] Zyrtec Zyrtec Yes Na Fisher 1 tablet Co mmon Allergy Allergy 1-15 Spirit 00:00: - [facility] 00 [facility] Flonase 50 Flonase 50 No 2{spray QD Flonase 50 MCG/ACT MCG/ACT 1-15 s_in_ea MCG/ACT 00:00: ch_nost 00 ril} Flonase 50 Flonase 50 No 2{spray QD Flonase 50 MCG/ACT MCG/ACT 1-15 s_in_ea MCG/ACT 00:00: ch_nost 00 ril} Flonase 50 Flonase 50 No 2{spray QD Flonase 50 MCG/ACT MCG/ACT 1-15 s_in_ea MCG/ACT 00:00: ch_nost 00 ril} Flonase 50 Flonase 50 No 2{spray QD Flonase 50 MCG/ACT MCG/ACT 1-15 s_in_ea MCG/ACT 00:00: ch_nost 00 ril} Flonase 50 Flonase 50 No 2{spray QD Flonase 50 MCG/ACT MCG/ACT 1-15 s_in_ea MCG/ACT 00:00: ch_nost 00 ril} Flonase 50 Flonase 50 2019-0 No 2{spray QD Flonase 50 MCG/ACT MCG/ACT 1-15 s_in_ea MCG/ACT 00:00: ch_nost 00 ril} Flonase 50 Flonase 50 2019-0 No 2{spray QD Flonase 50 MCG/ACT MCG/ACT 1-15 s_in_ea MCG/ACT 00:00: ch_nost 00 ril} Flonase 50 Flonase 50 2019-0 No 2{spray QD Flonase 50 MCG/ACT MCG/ACT 1-15 s_in_ea MCG/ACT 00:00: ch_nost 00 ril} Flonase 50 Flonase 50 2019-0 No 2{spray QD Flonase 50 MCG/ACT MCG/ACT 1-15 s_in_ea MCG/ACT 00:00: ch_nost 00 ril} Flonase 50 Flonase 50 2019-0 No 2{spray QD Flonase 50 MCG/ACT MCG/ACT 1-15 s_in_ea MCG/ACT 00:00: ch_nost 00 ril} Flonase 50 Flonase 50 2019-0 No 2{spray QD Flonase 50 MCG/ACT MCG/ACT 1-15 s_in_ea MCG/ACT 00:00: ch_nost 00 ril} Flonase 50 Flonase 50 2019-0 No 2{spray QD Flonase 50 MCG/ACT MCG/ACT 1-15 s_in_ea MCG/ACT 00:00: ch_nost 00 ril} Flonase 50 Flonase 50 2019-0 No 2{spray QD Flonase 50 MCG/ACT MCG/ACT 1-15 s_in_ea MCG/ACT 00:00: ch_nost 00 ril} Flonase 50 Flonase 50 2019-0 No 2{spray QD Flonase 50 MCG/ACT MCG/ACT 1-15 s_in_ea MCG/ACT 00:00: ch_nost 00 ril} Flonase 50 Flonase 50 2019-0 No 2{spray QD Flonase 50 MCG/ACT MCG/ACT 1-15 s_in_ea MCG/ACT 00:00: ch_nost 00 ril} Flonase 50 Flonase 50 2019-0 No 2{spray QD Flonase 50 MCG/ACT MCG/ACT 1-15 s_in_ea MCG/ACT 00:00: ch_nost 00 ril} Flonase 50 Flonase 50 No 2{spray QD Flonase 50 MCG/ACT MCG/ACT 1-15 s_in_ea MCG/ACT 00:00: ch_nost 00 ril} Flonase 50 Flonase 50 No 2{spray QD Flonase 50 MCG/ACT MCG/ACT 1-15 s_in_ea MCG/ACT 00:00: ch_nost 00 ril} Flonase 50 Flonase 50 No 2{spray QD Flonase 50 MCG/ACT MCG/ACT 1-15 s_in_ea MCG/ACT 00:00: ch_nost 00 ril} Flonase 50 Flonase 50 No 2{spray QD Flonase 50 MCG/ACT MCG/ACT 1-15 s_in_ea MCG/ACT 00:00: ch_nost 00 ril} Flonase 50 Flonase 50 No 2{spray QD Flonase 50 MCG/ACT MCG/ACT 1-15 s_in_ea MCG/ACT 00:00: ch_nost 00 ril} Flonase 50 Flonase 50 No 2{spray QD Flonase 50 MCG/ACT MCG/ACT 1-15 s_in_ea MCG/ACT 00:00: ch_nost 00 ril} Flonase 50 Flonase 50 No 2{spray QD Flonase 50 MCG/ACT MCG/ACT 1-15 s_in_ea MCG/ACT 00:00: ch_nost 00 ril} Flonase 50 Flonase 50 No 2{spray QD Flonase 50 MCG/ACT MCG/ACT 1-15 s_in_ea MCG/ACT 00:00: ch_nost 00 ril} Flonase 50 Flonase 50 No 2{spray QD Flonase 50 MCG/ACT MCG/ACT 1-15 s_in_ea MCG/ACT 00:00: ch_nost 00 ril} PredniSONE PredniSONE Yes Na Fisher 1 tablet [facility] Mirtazapine Mirtazapine Yes Na Fisher TAKE 1 Common TABLET BY Spirit MOUTH AT - [facility] BEDTIME [facility] Atorvastati Atorvastati Yes Na Fisher 1 tablet Common n Calcium n Calcium Spiri t - [facility] Eliquis 5 Eliquis 5 Yes Na Fisher one Co mmon mg mg [facility] Doxycycline Doxycycline Yes Na Fisher 1 tablet Common Hyclate Hyclate [facility] Sotalol HCl Sotalol HCl Yes Na Fisher 1 tablet Common [facility] Sotalol HCl Sotalol HCl No 1{table BID Sotalol 80 MG 80 MG t} HCl 80 MG Atorvastati Atorvastati No 1{table QD Atorvastat n Calcium n Calcium t} in Calcium 10 MG 10 MG 10 MG Ocuvite Ocuvite No Ocuvite Multivitami Multivitami No Multivitam n n in Eliquis 5 Eliquis 5 No Eliquis 5 mg 5 mg mg 5 mg mg 5 mg Sotalol HCl Sotalol HCl No 1{table BID Sotalol 80 MG 80 MG t} HCl 80 MG Atorvastati Atorvastati No 1{table QD Atorvastat n Calcium n Calcium t} in Calcium 10 MG 10 MG 10 MG Ocuvite Ocuvite No Ocuvite Multivitami Multivitami No Multivitam n n in Eliquis 5 Eliquis 5 No Eliquis 5 mg 5 mg mg 5 mg mg 5 mg Multivitami Multivitami No Multivitam n n in Eliquis 5 Eliquis 5 No Eliquis 5 mg 5 mg mg 5 mg mg 5 mg Sotalol HCl Sotalol HCl No 1{table BID Sotalol 80 MG 80 MG t} HCl 80 MG Ocuvite Ocuvite No Ocuvite Atorvastati Atorvastati No Atorvastat n Calcium n Calcium in Calcium 10 MG 10 MG 10 MG Atorvastati Atorvastati No 1{table QD Atorvastat n Calcium n Calcium t} in Calcium 10 MG 10 MG 10 MG Multivitami Multivitami No Multivitam n n in Eliquis 5 Eliquis 5 No Eliquis 5 mg 5 mg mg 5 mg mg 5 mg Sotalol HCl Sotalol HCl No 1{table BID Sotalol 80 MG 80 MG t} HCl 80 MG Ocuvite Ocuvite No Ocuvite Atorvastati Atorvastati No Atorvastat n Calcium n Calcium in Calcium 10 MG 10 MG 10 MG Atorvastati Atorvastati No 1{table QD Atorvastat n Calcium n Calcium t} in Calcium 10 MG 10 MG 10 MG Multivitami Multivitami No Multivitam n n in Eliquis 5 Eliquis 5 No Eliquis 5 mg 5 mg mg 5 mg mg 5 mg Sotalol HCl Sotalol HCl No 1{table BID Sotalol 80 MG 80 MG t} HCl 80 MG Ocuvite Ocuvite No Ocuvite Atorvastati Atorvastati No Atorvastat n Calcium n Calcium in Calcium 10 MG 10 MG 10 MG Atorvastati Atorvastati No 1{table QD Atorvastat n Calcium n Calcium t} in Calcium 10 MG 10 MG 10 MG Eliquis 5 Eliquis 5 No Eliquis 5 mg 5 mg mg 5 mg mg 5 mg Multivitami Multivitami No Multivitam n n in Atorvastati Atorvastati No Atorvastat n Calcium n Calcium in Calcium 10 MG 10 MG 10 MG Ocuvite Ocuvite No Ocuvite Atorvastati Atorvastati No 1{table QD Atorvastat n Calcium n Calcium t} in Calcium 10 MG 10 MG 10 MG Sotalol HCl Sotalol HCl No 1{table BID Sotalol 80 MG 80 MG t} HCl 80 MG Eliquis 5 Eliquis 5 No Eliquis 5 mg 5 mg mg 5 mg mg 5 mg Multivitami Multivitami No Multivitam n n in Atorvastati Atorvastati No Atorvastat n Calcium n Calcium in Calcium 10 MG 10 MG 10 MG Ocuvite Ocuvite No Ocuvite Atorvastati Atorvastati No 1{table QD Atorvastat n Calcium n Calcium t} in Calcium 10 MG 10 MG 10 MG Sotalol HCl Sotalol HCl No 1{table BID Sotalol 80 MG 80 MG t} HCl 80 MG Eliquis 5 Eliquis 5 No Eliquis 5 mg 5 mg mg 5 mg mg 5 mg Multivitami Multivitami No Multivitam n n in Atorvastati Atorvastati No Atorvastat n Calcium n Calcium in Calcium 10 MG 10 MG 10 MG Ocuvite Ocuvite No Ocuvite Atorvastati Atorvastati No 1{table QD Atorvastat n Calcium n Calcium t} in Calcium 10 MG 10 MG 10 MG Sotalol HCl Sotalol HCl No 1{table BID Sotalol 80 MG 80 MG t} HCl 80 MG Eliquis 5 Eliquis 5 No Eliquis 5 mg 5 mg mg 5 mg mg 5 mg Multivitami Multivitami No Multivitam n n in Atorvastati Atorvastati No Atorvastat n Calcium n Calcium in Calcium 10 MG 10 MG 10 MG Ocuvite Ocuvite No Ocuvite Atorvastati Atorvastati No 1{table QD Atorvastat n Calcium n Calcium t} in Calcium 10 MG 10 MG 10 MG Sotalol HCl Sotalol HCl No 1{table BID Sotalol 80 MG 80 MG t} HCl 80 MG Eliquis 5 Eliquis 5 No Eliquis 5 mg 5 mg mg 5 mg mg 5 mg Atorvastati Atorvastati No 1{table QD Atorvastat n Calcium n Calcium t} in Calcium 10 MG 10 MG 10 MG Multivitami Multivitami No Multivitam n n in Atorvastati Atorvastati No Atorvastat n Calcium n Calcium in Calcium 10 MG 10 MG 10 MG Sotalol HCl Sotalol HCl No 1{table BID Sotalol 80 MG 80 MG t} HCl 80 MG Ocuvite Ocuvite No Ocuvite Eliquis 5 Eliquis 5 No Eliquis 5 mg 5 mg mg 5 mg mg 5 mg Atorvastati Atorvastati No 1{table QD Atorvastat n Calcium n Calcium t} in Calcium 10 MG 10 MG 10 MG Multivitami Multivitami No Multivitam n n in Atorvastati Atorvastati No Atorvastat n Calcium n Calcium in Calcium 10 MG 10 MG 10 MG Sotalol HCl Sotalol HCl No 1{table BID Sotalol 80 MG 80 MG t} HCl 80 MG Ocuvite Ocuvite No Ocuvite Ocuvite Ocuvite No Ocuvite Eliquis 5 Eliquis 5 No Eliquis 5 mg 5 mg mg 5 mg mg 5 mg Atorvastati Atorvastati No Atorvastat n Calcium n Calcium in Calcium 10 MG 10 MG 10 MG Multivitami Multivitami No Multivitam n n in Sotalol HCl Sotalol HCl No 1{table BID Sotalol 80 MG 80 MG t} HCl 80 MG Atorvastati Atorvastati No 1{table QD Atorvastat n Calcium n Calcium t} in Calcium 10 MG 10 MG 10 MG Sotalol HCl Sotalol HCl No 1{table BID Sotalol 80 MG 80 MG t} HCl 80 MG Multivitami Multivitami No Multivitam n n in Eliquis 5 Eliquis 5 No Eliquis 5 mg 5 mg mg 5 mg mg 5 mg Atorvastati Atorvastati No 1{table QD Atorvastat n Calcium n Calcium t} in Calcium 10 MG 10 MG 10 MG Ocuvite Ocuvite No Ocuvite Atorvastati Atorvastati No Atorvastat n Calcium n Calcium in Calcium 10 MG 10 MG 10 MG Sotalol HCl Sotalol HCl No 1{table BID Sotalol 80 MG 80 MG t} HCl 80 MG Ocuvite Ocuvite No Ocuvite Atorvastati Atorvastati No Atorvastat n Calcium n Calcium in Calcium 10 MG 10 MG 10 MG Multivitami Multivitami No Multivitam n n in Eliquis 5 Eliquis 5 No Eliquis 5 mg 5 mg mg 5 mg mg 5 mg Atorvastati Atorvastati No 1{table QD Atorvastat n Calcium n Calcium t} in Calcium 10 MG 10 MG 10 MG Levaquin Levaquin No 1{table QD Levaquin 250 MG 250 MG t} 250 MG Sotalol HCl Sotalol HCl No 1{table BID Sotalol 80 MG 80 MG t} HCl 80 MG Ocuvite Ocuvite No Ocuvite Atorvastati Atorvastati No Atorvastat n Calcium n Calcium in Calcium 10 MG 10 MG 10 MG Multivitami Multivitami No Multivitam n n in Eliquis 5 Eliquis 5 No Eliquis 5 mg 5 mg mg 5 mg mg 5 mg Atorvastati Atorvastati No 1{table QD Atorvastat n Calcium n Calcium t} in Calcium 10 MG 10 MG 10 MG Levaquin Levaquin No 1{table QD Levaquin 250 MG 250 MG t} 250 MG Sotalol HCl Sotalol HCl No 1{table BID Sotalol 80 MG 80 MG t} HCl 80 MG Ocuvite Ocuvite No Ocuvite Atorvastati Atorvastati No Atorvastat n Calcium n Calcium in Calcium 10 MG 10 MG 10 MG Multivitami Multivitami No Multivitam n n in Eliquis 5 Eliquis 5 No Eliquis 5 mg 5 mg mg 5 mg mg 5 mg Atorvastati Atorvastati No 1{table QD Atorvastat n Calcium n Calcium t} in Calcium 10 MG 10 MG 10 MG Levaquin Levaquin No 1{table QD Levaquin 250 MG 250 MG t} 250 MG Multivitami Multivitami No Multivitam n n in Atorvastati Atorvastati No 1{table QD Atorvastat n Calcium n Calcium t} in Calcium 10 MG 10 MG 10 MG Sotalol HCl Sotalol HCl No 1{table BID Sotalol 80 MG 80 MG t} HCl 80 MG Ocuvite Ocuvite No Ocuvite Levaquin Levaquin No 1{table QD Levaquin 250 MG 250 MG t} 250 MG Eliquis 5 Eliquis 5 No Eliquis 5 mg 5 mg mg 5 mg mg 5 mg Eliquis 5 Eliquis 5 No Eliquis 5 mg 5 mg mg 5 mg mg 5 mg Multivitami Multivitami No Multivitam n n in Atorvastati Atorvastati No 1{table QD Atorvastat n Calcium n Calcium t} in Calcium 10 MG 10 MG 10 MG Ocuvite Ocuvite No Ocuvite Eliquis 5 Eliquis 5 No Eliquis 5 mg 5 mg mg 5 mg mg 5 mg Multivitami Multivitami No Multivitam n n in Atorvastati Atorvastati No 1{table QD Atorvastat n Calcium n Calcium t} in Calcium 10 MG 10 MG 10 MG Ocuvite Ocuvite No Ocuvite Eliquis 5 Eliquis 5 No Eliquis 5 mg 5 mg mg 5 mg mg 5 mg Multivitami Multivitami No Multivitam n n in Atorvastati Atorvastati No 1{table QD Atorvastat n Calcium n Calcium t} in Calcium 10 MG 10 MG 10 MG Ocuvite Ocuvite No Ocuvite Atorvastati Atorvastati No 1{table QD Atorvastat n Calcium n Calcium t} in Calcium 10 MG 10 MG 10 MG Ocuvite Ocuvite No Ocuvite Eliquis 5 Eliquis 5 No Eliquis 5 mg 5 mg mg 5 mg mg 5 mg Sotalol HCl Sotalol HCl No 1{table BID Sotalol 80 MG 80 MG t} HCl 80 MG Multivitami Multivitami No Multivitam n n in Atorvastati Atorvastati No 1{table QD Atorvastat n Calcium n Calcium t} in Calcium 10 MG 10 MG 10 MG Ocuvite Ocuvite No Ocuvite Eliquis 5 Eliquis 5 No Eliquis 5 mg 5 mg mg 5 mg mg 5 mg Sotalol HCl Sotalol HCl No 1{table BID Sotalol 80 MG 80 MG t} HCl 80 MG Multivitami Multivitami No Multivitam n n in Atorvastati Atorvastati No 1{table QD Atorvastat n Calcium n Calcium t} in Calcium 10 MG 10 MG 10 MG Ocuvite Ocuvite No Ocuvite Eliquis 5 Eliquis 5 No Eliquis 5 mg 5 mg mg 5 mg mg 5 mg Sotalol HCl Sotalol HCl No 1{table BID Sotalol 80 MG 80 MG t} HCl 80 MG Multivitami Multivitami No Multivitam n n in traMADol traMADol No 1{table QD traMADol HCl 50 MG HCl 50 MG t_as_ne HCl 50 MG eded} Diclofenac Diclofenac No Diclofenac Sodium 1 % Sodium 1 % Sodium 1 % Eliquis 5 Eliquis 5 No Eliquis 5 mg 5 mg mg 5 mg mg 5 mg Multivitami Multivitami No Multivitam n n in Sotalol HCl Sotalol HCl No 1{table BID Sotalol 80 MG 80 MG t} HCl 80 MG Atorvastati Atorvastati No 1{table QD Atorvastat n Calcium n Calcium t} in Calcium 10 MG 10 MG 10 MG Ocuvite Ocuvite No Ocuvite Sotalol HCl Sotalol HCl No 1{table BID Sotalol 80 MG 80 MG t} HCl 80 MG Atorvastati Atorvastati No 1{table QD Atorvastat n Calcium n Calcium t} in Calcium 10 MG 10 MG 10 MG Ocuvite Ocuvite No Ocuvite Multivitami Multivitami No Multivitam n n in Eliquis 5 Eliquis 5 No Eliquis 5 mg 5 mg mg 5 mg mg 5 mg Immunizations Ordered Immunization Filled Immunization Date Status Commen ts Source Name Name [facility] 2021-09-24 Completed [facility] Vaccine (Low Dose Vaccine (Low Dose 09:48:[facility] - [facility] Bo[facility]) Booster) [facility] [facility] Completed [facility] Vaccine (Low Dose Vaccine (Low Dose 09:48:[address] [facility] Booster) Booster) [facility] [facility] 2021-09-24 Completed [facility] Vaccine (Low Dose Vaccine (Low Dose 09:48:[facility] [address] [facility] Com[facility] Vaccine (Low Dose Vaccine (Low Dose 09:48:[facility] [address] [facility]-09-24 Completed [facility] Vaccine (Low Dose Vaccine (Low Dose 09:48:[facility] - [facility] Booster) Booster) [facility] [facility] 2021-09-24 Completed [facility] Vaccine (Low Dose Vaccine (Low Dose 09:48:[facility] - [facility] Booster) Booster) [facility] [facility] 2021-09-24 Completed [facility] Vaccine (Low Dose Vaccine (Low Dose 09:48:[facility] - [facility] Booster) Booster) [facility] [address] [facility] 2021-09-24 Completed [facility] Vaccine (Low Dose Vaccine (Low Dose 09:48:00 - [facility] Booster) Booster) [facility] [facility] 2021-09-24 Completed [facility] Vaccine (Low Dose Vaccine (Low Dose 09:48:00 - [facility] Booster) Booster) [facility] [address] [facility] 2021-09-24 Completed [facility] Vaccine (Low Dose Vaccine (Low Dose 09:48:[facility] - [facility] Booster) Booster) [facility] [address] COVID19 2021-09-24 Completed [facility] (Low Dose Vaccine (Low Dose 09:48:00 - [facility] Booster) Booster) [facility] [address] COVID19 2021-09-24 Completed [facility] (Low Dose Vaccine (Low Dose 09:48:00 - [facility] Booster) Booster) [facility] [address] [facility] Com[facility] (Low Dose Vaccine (Low Dose 09:48:00 - [facility] Booster) Booster) [facility] [address] [facility] Com[facility] (Low Dose Vaccine (Low Dose 09:48:00 - [facility] Booster) Booster) [facility] [address] [facility] (Low Dose Vaccine (Low Dose 09:48:00 - [facility] Booster) Booster) [facility] [address] [facility] (Low Dose Vaccine (Low Dose 09:48:00 - [facility] Booster) Booster) [facility] [address] COVID19 2021-09-24 Completed [facility]ine (Low Dose Vaccine (Low Dose 09:48:00 - [facility] Booster) Booster) [facility] [address] COVID19 2021-09-24 Completed [facility]ine (Low Dose Vaccine (Low Dose 09:48:00 - [facility] Booster) Booster) [facility] [address] COVID19 2021-09-24 Completed [facility]ine (Low Dose Vaccine (Low Dose 09:48:00 - [facility] Booster) Booster) [facility] [address] COVID19 2021-09-24 Completed [facility] (Low Dose Vaccine (Low Dose 09:48:00 - [facility] Booster) Booster) [facility] COVID-19 Moderna COVID-19 2021-09-24 Completed [facility] Vaccine (Low Dose Vaccine (Low Dose 09:48:00 [facility] Booster) Booster) [facility] COVID-19 Vaccine COVID-19 Vaccine 2020-11-13 Completed [facility] (Nava) (Nava) 14:14:00 [facility] COVID-19 Vaccine COVID-19 Vaccine 2020-11-13 Completed [facility] (Nava) (Nava) 14:14:00 [facility] COVID-19 Vaccine COVID-19 Vaccine 2020-11-13 Completed [facility] (Nava) (Nava) 14:14:00 [facility] COVID-19 Vaccine COVID-19 Vaccine 2020-11-13 Completed [facility] (Nava) (Nava) 14:14:00 [facility] COVID-19 Vaccine COVID-19 Vaccine 2020-11-13 Completed [facility] (Nava) (Nava) 14:14:00 [facility] COVID-19 Vaccine COVID-19 Vaccine 2020-11-13 Completed [facility] (Nava) (Nava) 14:14:00 [facility] COVID-19 Vaccine COVID-19 Vaccine 2020-11-13 Completed [facility] (Nava) (Nava) 14:14:00 [facility] COVID-19 Vaccine COVID-19 Vaccine 2020-11-13 Completed [facility] (Nava) (Nava) 14:14:00 [facility] COVID-19 Vaccine COVID-19 Vaccine 2020-11-13 Completed [facility] (Nava) (Nava) 14:14:00 [facility] COVID-19 Vaccine COVID-19 Vaccine 2020-11-13 Completed [facility] (Nava) (Nava) 14:14:00 [facility] COVID-19 Vaccine COVID-19 Vaccine 2020-11-13 Completed [facility] (Nava) (Nava) 14:14:00 [facility] COVID-19 Vaccine COVID-19 Vaccine 2020-11-13 Completed [facility] (Nava) (Nava) 14:14:00 - [facility] COVID-19 Vaccine COVID-19 Vaccine 2020-11-13 Completed [facility] (Nava) (Nava) 14:14:00 - [facility] COVID-19 Vaccine COVID-19 Vaccine 2020-11-13 Completed [facility] (Nava) (Nava) 14:14:00 - [facility] COVID-19 Vaccine COVID-19 Vaccine 2020-11-13 Completed [facility] (Nava) (Nava) 14:14:00 - [facility] COVID-19 Vaccine COVID-19 Vaccine 2020-11-13 Completed [facility] (Nava) (Nava) 14:14:00 - [facility] COVID-19 Vaccine COVID-19 Vaccine 2020-11-13 Completed [facility] (Nava) (Nava) 14:14:00 - [facility] COVID-19 Vaccine COVID-19 Vaccine 2020-11-13 Completed [facility] (Nava) (Nava) 14:14:00 - [facility] COVID-19 Vaccine COVID-19 Vaccine 2020-11-13 Completed [facility] (Nava) (Nava) 14:14:00 [facility] COVID-19 Vaccine COVID-19 Vaccine 2020-11-13 Completed [facility] (Nava) (Nava) 14:14:00 - [facility] COVID-19 Vaccine COVID-19 Vaccine 2020-11-13 Completed [facility] (Nvaa) (Nava) 14:14:00 - [facility] COVID-19 Vaccine COVID-19 Vaccine 2020-11-13 Completed [facility] (Nava) (Nava) 14:14:00 [facility] COVID-19 Vaccine COVID-19 Vaccine 2020-11-13 Completed [facility] (Nava) (Nava) 14:14:00 - [facility] COVID-19 Vaccine COVID-19 Vaccine 2020-11-13 Completed [facility] (Nava) (Nava) 14:14:00 - [facility] COVID-19 Vaccine COVID-19 Vaccine 2020-11-13 Completed [facility] (Nava) (Nava) 14:14:00 - [facility] Vital Signs Vital Name Observation Time Observation Value Comments Source height 2022-08-19 09:20:00 65.00 [in_i] [facility] weight 2022-08-19 09:20:00 178 [lb_av] [facility] bmi 2022-08-19 09:20:00 29.62 kg/m2 [facility] height 2022-07-14 13:40:00 65.00 [in_i] [facility] weight 2022-07-14 13:40:00 178.2 [lb_av] [facility] temperature 2022-07-14 13:40:00 97.6 [degF] [facility] bmi 2022-07-14 13:40:00 29.65 kg/m2 [facility] oximetry 2022-07-14 13:40:00 97 % [facility] respiratory rate 2022-07-14 13:40:00 16 /min Comm on [facility] blood pressure 2022-07-14 13:40:00 139 mm[Hg] [facility] - systolic [facility] blood pressure 2022-07-14 13:40:00 65 mm[Hg] [facility] - diastolic [facility] height 2022-06-25 08:40:00 65.00 [in_i] [facility] weight 2022-06-25 08:40:00 178.2 [lb_av] [facility] temperature 2022-06-25 08:40:00 97.9 [degF] [facility] bmi 2022-06-25 08:40:00 29.65 kg/m2 [facility] oximetry 2022-06-25 08:40:00 97 % [facility] respiratory rate 2022-06-25 08:40:00 15 /min Comm on [facility] blood pressure 2022-06-25 08:40:00 123 mm[Hg] [facility] - systolic [facility] blood pressure 2022-06-25 08:40:00 68 mm[Hg] [facility] - diastolic [facility] height 2022-04-10 09:40:00 65.00 [in_i] [facility] weight 2022-04-10 09:40:00 180 [lb_av] [facility] temperature 2022-04-10 09:40:00 99.9 [degF] [facility] bmi 2022-04-10 09:40:00 29.95 kg/m2 [facility] height 2022-01-12 13:00:00 65.00 [in_i] [facility] weight 2022-01-12 13:00:00 180 [lb_av] [facility] temperature 2022-01-12 13:00:00 98.0 [degF] [facility] bmi 2022-01-12 13:00:00 29.95 kg/m2 [facility] height 2021-12-11 11:20:00 65.00 [in_i] [facility] weight 2021-12-11 11:20:00 184.8 [lb_av] [facility] temperature 2021-12-11 11:20:00 97.5 [degF] [facility] bmi 2021-12-11 11:20:00 30.75 kg/m2 [facility] oximetry 2021-12-11 11:20:00 98 % [facility] respiratory rate 2021-12-11 11:20:00 16 /min Comm on [facility] blood pressure 2021-12-11 11:20:00 127 mm[Hg] [facility] blood pressure 2021-12-11 11:20:00 68 mm[Hg] [facility] height 2021-12-11 11:00:00 65.00 [in_i] [facility] weight 2021-12-11 11:00:00 184.8 [lb_av] Common [facility] temperature 2021-12-11 11:00:00 97.5 [degF] [facility] bmi 2021-12-11 11:00:00 30.75 kg/m2 [facility] oximetry 2021-12-11 11:00:00 98 % [facility] respiratory rate 2021-12-11 11:00:00 16 /min Comm on [facility] blood pressure 2021-12-11 11:00:00 127 mm[Hg] [facility] - systolic [facility] blood pressure 2021-12-11 11:00:00 68 mm[Hg] [facility] height 2021-09-01 14:00:00 65.00 [in_i] [facility] weight 2021-09-01 14:00:00 189 [lb_av] [facility] temperature 2021-09-01 14:00:00 98 [degF] [facility] bmi 2021-09-01 14:00:00 31.45 kg/m2 [facility] oximetry 2021-09-01 14:00:00 98 % [facility] respiratory rate 2021-09-01 14:00:00 16 /min Comm on [facility] blood pressure 2021-09-01 14:00:00 115 mm[Hg] [facility] blood pressure 2021-09-01 14:00:00 58 mm[Hg] [facility] - diastolic [facility] height 2021-05-16 13:20:00 65.00 [in_i] [facility] weight 2021-05-16 13:20:00 184 [lb_av] [facility] temperature 2021-05-16 13:20:00 97.9 [degF] [facility] bmi 2021-05-16 13:20:00 30.62 kg/m2 [facility] oximetry 2021-05-16 13:20:00 97 % [facility] respiratory rate 2021-05-16 13:20:00 20 /min Comm on [facility] blood pressure 2021-05-16 13:20:00 114 mm[Hg] [facility] systolic [facility] blood pressure 2021-05-16 13:20:00 65 mm[Hg] [facility] diastolic [facility] Procedures This patient has no known procedures. Encounters Start End Encounter Admission Attending Care Care Encounter Source Date/Time Date/Time Type Type Clinicians Facility Department ID 2022-08-17 Outpatient Fisher, Na STLMLC STLMLC [id number] 2 Common 07:49:00 [facility] 2022-08-11 Outpatient Fisher, Na STLMLC STLMLC [id number] 2 Common 09:05:01 [facility] 2022-07-13 Outpatient Fisher, Na STLMLC STLMLC [id number] 2 Common 08:38:00 [facility] 2022-06-23 Outpatient Fisher, Na STLMLC STLMLC [id number] 2 Common 14:13:01 [facility] 2022-04-14 Outpatient Fisher, Na STLMLC STLMLC [id number] 2 Common 10:06:01 [facility] 2022-04-09 Outpatient Fisher, Na STLMLC STLMLC [id number] 2 Common 09:03:00 [facility] 2021-12-11 Outpatient Fisher, Na STLMLC STLMLC [id number] 2 Common 10:49:00 [facility] 2021-12-09 Outpatient Fisher, Na STLMLC STLMLC [id number] 2 Common 10:46:00 [facility] 2021-10-01 Outpatient Fisher, Na STLMLC STLMLC [id number] 2 Common 09:38:00 [facility] 2021-09-24 Outpatient Fisher, Na STLMLC STLMLC [id number] 2 Common 14:30:13 [facility] 2021-09-24 Outpatient Fisher, Na STLMLC STLMLC [id number] 2 Common 14:29:47 [facility] 2021-09-24 Outpatient Fisher, Na STLMLC STLMLC [id number] 2 Common 13:35:17 [facility] 2021-09-24 Outpatient Fisher, Na STLMLC STLMLC [id number] 2 Common 13:15:27 [id number] [facility] 2021-09-24 Outpatient Fisher, Na STLMLC STLMLC [id number] 2 Common 12:41:52 [id number] [facility] 2021-09-24 Outpatient Fisher, Na STLMLC STLMLC [id number] 2 Common 12:41:18 [id number] [facility] 2021-09-24 Outpatient Fisher, Na STLMLC STLMLC [id number] 2 Common 12:40:47 [id number] [facility] 2021-09-24 Outpatient Fisher, Na STLMLC STLMLC [id number] 2 Common 12:14:13 [facility] 2021-09-24 Outpatient Fisher, Na STLMLC STLMLC [id number] 2 Common 12:13:00 [facility] 2021-09-24 Outpatient Fisher, Na STLMLC STLMLC [id number] 2 Common 11:54:57 [id number] [facility] 2021-09-24 Outpatient Fisher, Na STLMLC STLMLC [id number] 2 Common 11:49:11 [id number] [facility] 2021-09-24 Outpatient Fisher, Na STLMLC STLMLC [id number] 2 Common 11:45:30 [id number] [facility] 2021-09-24 Outpatient Fisher, Na STLMLC STLMLC [id number] 2 Common 11:44:12 [id number] [facility] 2021-09-24 Outpatient Fisher, Na STLMLC STLMLC [id number] 2 Common 11:21:52 [id number] [facility] 2021-09-24 Outpatient Fisher, Na STLMLC STLMLC [id number] 2 Common 11:11:21 [id number] [facility] 2021-09-24 Outpatient Fisher, Na STLMLC STLMLC [id number] 2 Common 11:08:37 [id number] [facility] 2022-08-19 2022-08-19 OFFICE STLMLC STLMLC [id number] [facility] 00:00:00 00:00:00 VISIT EST Spir it PT LEVEL 3 [facility] 2022-07-20 2022-07-20 (TEL) STLMLC STLMLC [id number] [facility] 00:00:00 00:00:00 [facility] 2022-07-14 2022-07-14 OFFICE STLMLC STLMLC [id number] [facility] 00:00:00 00:00:00 VISIT EST Spir it PT LEVEL 3 [facility] 2022-07-09 2022-07-09 (TEL) STLMLC STLMLC [id number] [facility] 00:00:00 00:00:00 [facility] 2022-07-07 2022-07-07 (TEL) STLMLC STLMLC [id number] [facility] 00:00:00 00:00:00 [facility] 2022-07-05 2022-07-05 (TEL) STLMLC STLMLC [id number] [facility] 00:00:00 00:00:00 [facility] 2022-07-01 2022-07-01 (TEL) STLMLC STLMLC [id number] [facility] 00:00:00 00:00:00 [facility] 2022-06-25 2022-06-25 OFFICE STLMLC STLMLC [id number] [facility] 00:00:00 00:00:00 VISIT EST Spir it PT LEVEL 3 [facility] 2022-06-22 2022-06-22 (TEL) STLMLC STLMLC [id number] [facility] 00:00:00 00:00:00 [facility] 2022-04-13 2022-04-13 OFFICE STLMLC STLMLC [id number] [facility] 00:00:00 00:00:00 VISIT EST Spir it PT LEVEL 3 [facility] 2022-04-10 2022-04-10 OFFICE STLMLC STLMLC [id number] [facility] 00:00:00 00:00:00 VISIT EST Spir it PT LEVEL 3 [facility] 2022-04-09 2022-04-09 (TEL) STLMLC STLMLC [id number] [facility] 00:00:00 00:00:00 [facility] 2022-03-25 2022-03-25 (TEL) STLMLC STLMLC [id number] [facility] 00:00:00 00:00:00 [facility] 2022-01-12 2022-01-12 OFFICE STLMLC STLMLC [id number] [facility]mon 00:00:00 00:00:00 VISIT EST Spir it PT LEVEL 3 [facility] 2022-01-12 2022-01-12 (TEL) STLMLC STLMLC [id number] [facility] 00:00:00 00:00:00 [facility] 2021-12-15 2021-12-15 (TEL) STLMLC STLMLC [id number] [facility] 00:00:00 00:00:00 [facility] 2021-12-15 2021-12-15 (TEL) STLMLC STLMLC [id number] [facility] 00:00:00 00:00:00 [facility] 2021-12-11 2021-12-11 OFFICE STLMLC STLMLC [id number] [facility]mon 00:00:00 00:00:00 VISIT EST Spir it PT LEVEL 3 - [facility] 2021-12-11 2021-12-11 SUB ANNUAL STLMLC STLMLC [id number] Common 00:00:00 00:00:00 [facility] VISIT [facility] 2021-09-25 2021-09-25 (TEL) STLMLC STLMLC [id number] Co [facility]mon 00:00:00 00:00:00 [facility] 2021-09-24 2021-09-24 (COVID STLMLC STLMLC [id number] [facility] 00:00:00 00:00:00 Inj) COVID Spi rit Injection [facility] 2021-09-01 2021-09-01 OFFICE STLMLC STLMLC [id number] [facility] 00:00:00 00:00:00 VISIT EST Spir it PT LEVEL 3 - [facility] 2021-06-01 2021-06-01 (TEL) STLMLC STLMLC [id number] [facility] 00:00:00 00:00:00 [facility] 2021-05-20 2021-05-20 (TEL) STLMLC STLMLC [id number] [facility] 00:00:00 00:00:00 [facility] 2021-05-16 2021-05-16 OFFICE STLMLC STLMLC [id number] [facility] 00:00:00 00:00:00 VISIT EST Spir it PT LEVEL 3 - [facility] 2021-04-01 2021-04-01 Outpatient STLMLC STLMLC [id number] Common 00:00:00 00:00:00 [facility] 2021-04-01 2021-04-01 Outpatient STLMLC STLMLC [id number] Common 00:00:00 00:00:00 [facility] 2021-02-16 2021-02-16 Outpatient STLMLC STLMLC [id number] Common 00:00:00 00:00:00 [facility] 2021-02-13 2021-02-13 Outpatient STLMLC STLMLC [id number] Common 00:00:00 00:00:00 [facility] 2020-11-13 2020-11-13 Outpatient STLMLC STLMLC [id number] Common 00:00:00 00:00:00 [facility] 2020-11-13 2020-11-13 Outpatient STLMLC STLMLC [id number] Common 00:00:00 00:00:00 [facility] 2020-11-12 2020-11-12 Outpatient STLMLC STLMLC [id number] Common 00:00:00 00:00:00 [facility] 2020-08-14 2020-08-14 Outpatient STLMLC STLMLC [id number] Common 00:00:00 00:00:00 [facility] 2020-08-14 2020-08-14 Outpatient STLMLC STLMLC [id number] Common 00:00:00 00:00:00 [facility] 2020-06-11 2020-06-11 Outpatient STLMLC STLMLC [id number] Common 00:00:00 00:00:00 [facility] 2020-05-23 2020-05-23 Outpatient STLMLC STLMLC [id number] Common 00:00:00 00:00:00 [facility] 2020-05-15 2020-05-15 [id number] Common 10:53:00 10:53:[address] [facility] 2020-05-15 2020-05-15 [facility] [id number] Common 10:20:00 10:20:[address] [facility] 2020-04-03 2020-04-03 [facility] [id number] Common 09:59:00 09:59:[address] [facility] 2020-03-27 2020-03-27 [facility] [id number] Common 09:32:00 09:32:[address] [facility] 2020-03-25 2020-03-25 [facility] [id number] Common 13:15:00 13:15:[address] [facility] 2020-03-25 2020-03-25 [facility] [id number] Common 12:20:00 12:20:[address] [facility] 2020-03-25 2020-03-25 [facility] [id number] Common 08:53:00 08:53:00 t [facility] [address] [facility] 2020-02-21 2020-02-21 [facility] [id number] Common 11:50:00 11:50:[address] [facility] 2020-02-15 2020-02-15 [facility] [id number] Common 11:54:00 11:54:[address] [facility] 2020-02-14 2020-02-14 [facility] [id number] Common 11:41:00 11:41:00 t [facility] [address] [facility] 2020-02-13 2020-02-13 [facility] [id number] Common 13:40:00 13:40:[address] [facility] - [facility] 2020-01-21 2020-01-21 [facility] [id number] Common 23:44:00 23:44:[address] [facility] 2020-01-15 2020-01-15 [facility] [id number] Common 13:00:00 13:00:[address] [facility] 2020-01-10 2020-01-10 [facility] [id number] Common 15:43:00 15:43:[address] [facility] 2020-01-10 2020-01-10 Outpatient Elio Doshi [id number] Common 14:19:00 14:19:[address] [facility] 2020-01-01 2020-01-01 Outpatient Elio Doshi [id number] Common 14:59:00 14:59:[address] [facility] 2019-04-19 2019-04-19 Outpatient Elio Ballardt 24 [id number] Common 10:00:00 10:00:[address] [facility] Results Test Description Test Time Test Comments Results Result Comments Source SARS-COV2/RT-PCR ([facility]) 2019-12-29 09:15:00 Test Item Value Reference Range Interpretation Comme nts SARS-COV2/RT-PCR (test code = 2383596) Not Detected Not Detected, N egative SARS-COV-2 PERFORMING LAB (test code = [facility] [id number]) Negative results do not preclude SARS-CoV-2 infection and should not be used as the sole basis for patient management decisions. Negative results must be combined with clinical observations, patient history, and epidemiological information. A false negative result may occur if a specimen is improperly collected, transported or handled.The limit of detection for this assay is 250 copies/mL.This SARS CoV-2 test is a rapid, real-time RT-PCR test intended for the qualitative detection of nucleic acid from SARS-CoV-2 in a nasopharyngeal swab specimen collected from individuals suspected of COVID-19 by their healthcare provider.This test has not been Food and Drug Administration (FDA) cleared or approved and has been authorized by FDA under an Emergency Use Authorization (EUA). This EUA will be effective until the declaration that circumstances exist justifying the authorization of the emergency use of in vitro diagnostic tests for detection and/or diagnosis of COVID-19 is terminated under Section 564(b)(2) of the Act or the EUA is revoked under Section 564(g) of the Act.Fact Sheet for Healthcare Pro viders:https://www.[employer].com/Documents/Xpert%20Xpress%20SARS%20CoV-2/Fact%20Sh eets/302-3802%30NNLS-HDB-5%20HEALTHCARE%20PROVIDERS%20FACT%20SHEET.pdfFact Sheet for Healthcare Patients:https://www.Movolo.com/Documents/Xpert%20Xpress%20SARS%20CoV-2/Fact%20Sheets/302-3801%20SARS-COV -2%20PATIENT%20FACT%20SHEET.pdfPerforming Laboratory:[facility], [place] [address]VLLA-QOP2/RT-PCR ([facility]) 2019-12-25 20:26:00 Test Item Value Reference Range Interpretation Comments SARS-COV2/RT-PCR (test Not Detected Not Detected, Negative code = [id number]) SARS-COV-2 PERFORMING LAB [facility] (test code = [id number]) Negative results do not preclude SARS-CoV-2 infection and should not be used as the sole basis for patient management decisions. Negative results must be combined with clinical observations, patient history, and epidemiological information. A false negative result may occur if a specimen is improperly collected, transported or handled.The limit of detection for this assay is 250 copies/mL.This SARS CoV-2 test is a rapid, real-time RT-PCR test intended for the qualitative detection of nucleic acid from SARS-CoV-2 in a nasopharyngeal swab specimen collected from individuals suspected of COVID-19 by their healthcare provider.This test has not been Food and Drug Administration (FDA) cleared or approved and has been authorized by FDA under an Emergency Use Authorization (EUA). This EUA will be effective until the declaration that circumstances exist justifying the authorization of the emergency use of in vitro diagnostic tests for detection and/or diagnosis of COVID-19 is terminated under Section 564(b)(2) of the Act or the EUA is revoked under Section 564(g) of the Act.Fact Sheet for Healthcare Pro viders:https://www.SNAPP'/Documents/Xpert%20Xpress%20SARS%20CoV-2/Fact%20Sh eets/302-3802%61FEXH-FKN-6%20HEALTHCARE%20PROVIDERS%20FACT%20SHEET.pdfFact Sheet for Healthcare Patients:https://www.[employer]com/Documents/Xpert%20Xpress%20SARS%20CoV-2/Fact%20Sheets/302-6726%20SARS-COV -2%20PATIENT%20FACT%20SHEET.pdfPerforming Laboratory:[facility], [place] [address]ZKD, COVID 19 Antigen + Flu by SofiaPOC, COVID 19 Antigen + Flu by Rosibel
[2022-09-20] MEDS ORDERED: TDAP (DIPHTH,PERTUSS(ACELL),TET VAC) 0.5 ML VIAL IMVAC ONE (05:46)
--- NOTE | 2022-09-20 06:54 | EDPHYS ---
Physician Documentation [facility] Name: Xavier Houser Age: 82 yrs Sex: Male : 1940 Arrival Date: 09/20/2022 Time: 05:28 Bed 14 Private MD: ED Physician Moses Rebollar HPI: 09/20 05:42 This 82 yrs old Male presents to ER via Ambulatory with complaints of Fall Injury, Head rt Injury Without LOC-Adult. 05:42 Details of fall: The patient fell from an upright position, while standing. Onset: The rt symptoms/episode began/occurred 1 hour(s) ago. Associated injuries: The patient sustained injury to the head, abrasion, contusion. Severity of symptoms: At their worst the symptoms were moderate. Patient was on Eliquis presents to the ED with a mechanical fall about 1 hour ago. Patient denies loss of consciousness, reports hitting his forehead. Denies any neck pain, other injuries. Pain is aching in nature, nonradiating. Denies significant headache. Symptoms are moderate in severity, no other aggravating or alleviating factors.. Historical: - Allergies: 05:39 No Known Drug Allergies; as6 - Home Meds: 05:39 Eliquis oral [Active]; atorvastatin oral [Active]; as6 - PMHx: 05:39 Atrial fibrillation; Arthritis; as6 - PSHx: 05:39 kidney; as6 - Immunization history:: Client reports receiving the Crow \T\ Crow single-dose vaccine. - Social history:: Smoking status: Patient denies any tobacco usage or history of. - Immunization history: Last tetanus immunization: unknown. - Family history:: not pertinent. ROS: 05:42 Constitutional: Negative for fever, chills, and weight loss, Eyes: Negative for injury, rt pain, redness, and discharge, Cardiovascular: Negative for chest pain, palpitations, and edema, Respiratory: Negative for shortness of breath, cough, wheezing, and pleuritic chest pain, Abdomen/GI: Negative for abdominal pain, nausea, vomiting, diarrhea, and constipation, MS/Extremity: Negative for injury and deformity, Skin: Negative for injury, rash, and discoloration, Neuro: Negative for headache, weakness, numbness, tingling, and seizure, Psych: Negative for depression, anxiety, suicide ideation, homicidal ideation, and hallucinations. Exam: 05:42 Constitutional: This is a well developed, well nourished patient who is awake, alert, rt and in no acute distress. Eyes: Pupils equal round and reactive to light, extra-ocular motions intact. Lids and lashes normal. Conjunctiva and sclera are non-icteric and not injected. Cornea within normal limits. Periorbital areas with no swelling, redness, or edema. Chest/axilla: Normal chest wall appearance and motion. Nontender with no deformity. No lesions are appreciated. Cardiovascular: Regular rate and rhythm with a normal S1 and S2. No gallops, murmurs, or rubs. Normal PMI, no JVD. No pulse deficits. Respiratory: Lungs have equal breath sounds bilaterally, clear to auscultation and percussion. No rales, rhonchi or wheezes noted. No increased work of breathing, no retractions or nasal flaring. Abdomen/GI: Soft, non-tender, with normal bowel sounds. No distension or tympany. No guarding or rebound. No evidence of tenderness throughout. Skin: Warm, dry with normal turgor. Normal color with no rashes, no lesions, and no evidence of cellulitis. MS/ Extremity: Pulses equal, no cyanosis. Neurovascular intact. Full, normal range of motion. Neuro: Awake and alert, GCS 15, oriented to person, place, time, and situation. Cranial nerves II-XII grossly intact. Motor strength 5/5 in all extremities. Sensory grossly intact. Cerebellar exam normal. Normal gait. Psych: Awake, alert, with orientation to person, place and time. Behavior, mood, and affect are within normal limits. 05:42 Head/face: Contusion with abrasion to the forehead, otherwise no other external evidence of trauma.. 05:42 Neck: No posterior cervical midline tenderness, step-offs.. Vital Signs: 05:37 BP 133 / 73; Pulse 79; Resp 16 S; Temp 99.1(O); Pulse Ox 100% on R/A; Weight 74.84 kg as6 (R); Height 5 ft. 5 in. (165.10 cm) (R); Pain 4/10; 07:02 BP 138 / 84; Pulse 68; Resp 19; Pulse Ox 100% ; Pain 0/10; ke1 05:37 Body Mass Index 27.46 (74.84 kg, 165.10 cm) as6 Harsh Coma Score: 05:41 Eye Response: spontaneous(4). Verbal Response: oriented(5). Motor Response: obeys as6 commands(6). Total: 15. Trauma Score (Adult): 05:41 Eye Response: spontaneous(1); Verbal Response: oriented(1); Motor Response: obeys as6 commands(2); Systolic BP: > 89 mm Hg(4); Respiratory Rate: 10 to 29 per min(4); Harsh Score: 15; Trauma Score: 12 MDM: 05:34 Patient medically screened. rt 06:53 Differential diagnosis: abrasion, closed head injury, contusion, HEMMORHAGE. Data rt reviewed: vital signs, nurses notes, radiologic studies. I considered the following discharge prescriptions or medication management in the emergency department Pain Medications: At this time, prescription pain medications are not recommended. Test considered but Not performed: EKG: Reports mechanical fall, EKG not needed. Labs: Denies syncopal event, labs not needed. Historians other than the Patient: Daughter/Son: Discussed patient's history with daughter.. Care significantly affected by the following chronic conditions: Atrial fibrillation on Eliquis. 09/20 05:41 Order name: CT Head C Spine rt Administered Medications: 05:50 Drug: Tetanus-Diphtheria Toxoid Adult 0.5 ml {[employer] Resource Specialist: [employer] ([employer]). Exp: ke1 03/13/2023. Lot #: [id number]. } Route: IM; Site: right deltoid; Disposition Summary: 09/20/22 06:53 Discharge Ordered Location: Home rt Problem: new rt Symptoms: have improved rt Condition: Stable rt Diagnosis - Fall on same level, unspecified rt - Contusion of unspecified part of head rt Followup: rt - With: Private Physician - When: 2 - 3 days - Reason: Discharge Instructions: - Discharge Summary Sheet rt - Head Injury, Adult rt Forms: - Medication Reconciliation Form rt - Thank You Letter rt - Antibiotic Education rt - Prescription Opioid Use rt Signatures: Dispatcher [employer] Geovanni Fam RN RN as6 Johan Morton RN RN ke1 Moses Rebollar MD MD rt
--- NOTE | 2022-09-20 06:54 | ER ---
Nurse's Notes [facility] Name: Xavier Houser Age: 82 yrs Sex: Male : 1940 Arrival Date: 09/20/2022 Time: 05:28 Bed 14 Private MD: Diagnosis: Fall on same level, unspecified;Contusion of unspecified part of head Presentation: 09/20 05:37 Chief complaint: Patient states: "I was in the bathroom and I fell asleep standing up as6 and fell forward and hit my head". Coronavirus screen: At this time, the client does not indicate any symptoms associated with coronavirus-19. Ebola Screen: No symptoms or risks identified at this time. Initial Sepsis Screen: Does the patient meet any 2 criteria? No. Patient's initial sepsis screen is negative. Does the patient have a suspected source of infection? No. Patient's initial sepsis screen is negative. Risk Assessment: Do you want to hurt yourself or someone else? Patient reports no desire to harm self or others. Onset of symptoms was September 20, 2022 at 04:30. 05:37 Method Of Arrival: Ambulatory as6 05:37 Acuity: DAISY 3 as6 05:40 Care prior to arrival: None. Mechanism of Injury: Fall from standing position. Trauma as6 event details: Injury occurred in the [facility], Injury occurred: at home. Injury occurred: September 20, 2022 Injury occurred at: 04:30. Trauma Activation: Alert Physician: ED Physician; Name: ; Notified At: ; Arrived At: Physician: General Surgeon; Name: ; Notified At: ; Arrived At: Physician: Radiology; Name: ; Notified At: ; Arrived At: Physician: Respiratory; Name: ; Notified At: ; Arrived At: Physician: Lab; Name: ; Notified At: ; Arrived At: Historical: - Allergies: 05:39 No Known Drug Allergies; as6 - Home Meds: 05:39 Eliquis oral [Active]; atorvastatin oral [Active]; as6 - PMHx: 05:39 Atrial fibrillation; Arthritis; as6 - PSHx: 05:39 kidney; as6 - Immunization history:: Client reports receiving the Crow \\T\\ Crow single-dose vaccine. - Social history:: Smoking status: Patient denies any tobacco usage or history of. - Immunization history: Last tetanus immunization: unknown. - Family history:: not pertinent. Screenin:41 [facility] ED Fall Risk Assessment (Adult) History of falling in the last 3 months, as6 including since admission Yes- physiologic fall (2 pts) Confusion or Disorientation No (0 pts) Intoxicated or Sedated No (0 pts) Impaired Gait No (0 pts) Mobility Assist Device Used No (0 pt) Altered Elimination No (0 pt) Score/Fall Risk Level 3 or more points = High Risk Oriented to surroundings, Maintained a safe environment, Educated pt \\T\\ family on fall prevention, incl call for assistance when getting out of bed, Utilized family, sitter, or virtual gaming dealer as indicated. Abuse screen: Denies threats or abuse. Denies injuries from another. Nutritional screening: No deficits noted. Tuberculosis screening: No symptoms or risk factors identified. Primary Survey: 05:40 Reassessment Breathing: Respiratory effort Spontaneous. ke1 05:41 NO uncontrolled hemorrhage observed. A: The client is awake and alert. The airway is as6 patent. Breathing/Chest: Spontaneous respiratory effort, equal unlabored respirations, breath sounds clear bilaterally, regular pattern, symmetrical chest rise and fall. Circulation: No external hemorrhage present. Regular and strong central pulse, skin warm/dry/normal color. Disability Pupils are equal, round, reactive to light and accommodation. Client is alert. Exposure/Environment: All clothing and personal items were removed. Forensic evidence collection is not deemed to be indicated at this time. Items placed in patient belonging bag. Secondary Survey: 05:44 HEENT: Head Other bump on forehead over right eye with abrasion. Gastrointestinal: ke1 Abdomen is soft, Bowel sounds present in all quadrants. Musculoskeletal: Capillary refill < 3 seconds, Range of motion: intact in all extremities. Injury Description: Abrasion sustained to forehead. Assessment: 05:46 General: Appears in no apparent distress. Behavior is appropriate for age. Pain: Denies ke1 pain. Neuro: Wheatley Agitation-Sedation Scale (RASS): 0 - Alert and Calm Level of Consciousness is awake, alert, Oriented to person, place, time, situation. Vital Signs: 05:37 BP 133 / 73; Pulse 79; Resp 16 S; Temp 99.1(O); Pulse Ox 100% on R/A; Weight 74.84 kg as6 (R); Height 5 ft. 5 in. (165.10 cm) (R); Pain 4/10; 07:02 BP 138 / 84; Pulse 68; Resp 19; Pulse Ox 100% ; Pain 0/10; ke1 05:37 Body Mass Index 27.46 (74.84 kg, 165.10 cm) as6 Harsh Coma Score: 05:41 Eye Response: spontaneous(4). Verbal Response: oriented(5). Motor Response: obeys as6 commands(6). Total: 15. Trauma Score (Adult): 05:41 Eye Response: spontaneous(1); Verbal Response: oriented(1); Motor Response: obeys as6 commands(2); Systolic BP: > 89 mm Hg(4); Respiratory Rate: 10 to 29 per min(4); [place] Score: 15; Trauma Score: 12 ED Course: 05:28 Patient arrived in ED. [id number] 05:30 Moses Rebollar MD is Attending Physician. rt 05:33 Johan Morton, REENA is Primary Nurse. ke1 05:39 Triage completed. as6 05:40 Arm band placed on. as6 05:41 Placed in gown. Bed in low position. Call light in reach. Side rails up X 1. Adult w/ as6 patient. 05:42 Patient maintains SpO2 saturation greater than 95% on room air. Thermoregulation: warm as6 blanket given to patient. 06:26 CT Head C Spine In Process Unspecified. EDMS 07:00 No provider procedures requiring assistance completed. ke1 07:02 Patient did not have IV access during this emergency room visit. 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 Exp: ke1 03/13/2023. Lot #: [id number]. } Route: IM; Site: right deltoid; Medication: 06:59 Vaccine Information Statement (VIS) provided today. Questions and/or concerns thomas addressed. VIS edition date: September 20, 2022. Intake: 05:43 PO: 0ml; Total: 0ml. as6 Outcome: 06:53 Discharge ordered by . rt 07:02 Discharged to home via wheelchair. ke1 07:02 Condition: good 07:02 Discharge instructions given to patient. 07:04 Patient left the ED. ke1 Signatures: Dispatcher [employer] EDMS Esthela Cool [id number] Geovanni Schneider RN RN as6 Johan Morton RN RN ke1 Moses Rebollar MD MD rt Corrections: (The following items were deleted from the chart) 05:46 05:43 HEENT: Head ke1 ke1
[2022-09-20 07:08] VITALS: TEMP 99.1; O2SAT 100
[2022-09-20 07:09] VITALS: BP 138/84
--- NOTE | 2022-09-21 10:53 | RAD REPORT ---
EXAM DESCRIPTION: 1. CT HEAD without IV contrast. 2. CT CERVICAL SPINE without IV contrast. CLINICAL HISTORY: 82 years Male trauma TECHNIQUE: Multiple axial CT images of the brain and cervical spine were performed followed by sagit uzair and coronal reconstructed images. The CT study is performed according to ALARA (as low as reasona candelaria achievable) or ALARA/IMAGE GENTLY, with automatic adjustment of mA and/or kV according to patient size. Performed on: 09/20/2022 at 6:06 AM COMPARISON: CT head performed on 12/28/2019. FINDINGS: CT HEAD: There is no evidence of mass, acute mass effect or midline shift. There are no acute extra-axial flui d collections. There is no evidence of acute intracranial hemorrhage. The cerebral sulci and ventricles are prominent consistent with mild cerebral volume loss. There are scattered areas of decreased attenuation within the subcortical and periventricular white m atter most likely due to mild chronic microangiopathy. There is no significant mucosal thickening of the paranasal sinuses. The mastoid air cells are clear. The orbital contents are grossly unremarkable. There is mild right frontal scalp soft tissue swelling and small hematoma. No focal soft tissue abnormalities are identified. CT CERVICAL SPINE: The cervical vertebrae are normal in height. There is straightening of the normal cervical lordosis. This may be related to patient positioning, muscle spasm or degenerative changes. There is multilevel mild to moderate moderate to marked disc space narrowing throughout the cervical spine most pronounc ed from C4-C5 through C6-C7. Bone mineralization is normal. There is degenerative spurring along ve rtebral endplates throughout the cervical spine most pronounced from C4 through T1. The atlanto-axial articulation is preserved and the odontoid process is intact. There is normal alignment of the facet joints on the parasagittal images. There are degenerative bahena ges of the facet joints. There is no evidence of acute fracture or subluxation. There is multilevel mild to moderate canal marisa nosis from C4-C5 through C6-C7 secondary to prominent posterior disc osteophyte complexes. There is multilevel bilateral neural foraminal stenosis secondary to uncovertebral joint and facet joint hype rtrophy. The prevertebral and paraspinal soft tissues are unremarkable. The lung apices are clear. IMPRESSION: CT HEAD: 1. No evidence of acute intracranial pathology. 2. Mild right frontal scalp soft tissue swelling and small hematoma. 3. 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 CT CERVICAL SPINE: 1. No evidence of acute cervical spine injury. 2. Degenerative changes of the cervical spine as described above. 3. Straightening of the normal cervical lordosis which may be related to patient positioning, muscl e spasm or degenerative changes. Electronically signed by: Cici Arthur DO 09/20/2022 6:41 AM BATTERY SERVICE TECHNICIAN Due to temporary technical issues with the PACS/Fluency reporting system, reports are being signed by the in house radiologists without review as a courtesy to insure prompt reporting. The interpreting radiologist is fully responsible for the content of the report
== END 2022-09-20 07:04 | disposition home or self-care (01) ==
LOC: ER 05:26
DX: S00.83XA Contusion of other part of head, initial encounter (principal); W18.30XA Fall on same level, unspecified, initial encounter; Z23 Encounter for immunization; I48.91 Unspecified atrial fibrillation; Z79.01 Long term (current) use of anticoagulants
CPT/HCPCS: 70450; 72125; 90471; 99284

== ENCOUNTER 2023-03-03 16:06 | Emergency (ER) | payer OTHER ==
--- OUTSIDE RECORDS SUMMARY | 2023-03-03 16:11 | XMS REPORT | Continuity of Care Document ---
:[address] [facility] t Address [address] [place] [address] Care Team Providers Name Role Phone Christian Christianson Attending Clinician Unavailable Autumn Esposito Attending Clinician Unavailable Nellie Fisher Attending Clinician Unavailable Payers Payer Name Policy Type Policy Number Effective Date Expiration Date S ronald [facility] 53 [id number] 2021 [facility] ADVANTAGE 00:00:00 - [facility] MEDICARE MB [id number] [facility] NOVITAS - [facility] MEDICARE MB [id number] [facility]AS [facility] MEDICARE MB [id number] [facility] NOVITAS [facility] Problems Condition Condition Condition Status Onset Resolution Last Treating Co mments Source Name Details Category Date Date Treatment Clinician Date Nonvenomou Insect Problem Commo n s insect bite Spirit bite of (nonvenomo - [facility]I trunk us) of [facility] abdominal 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, - [facility] right [facility] [id number] Leukocytos Problem Co mmon is, Spirit unspecifie - CHI d type [facility] Vitreous Floaters Problem Commo n floaters Spirit - [facility] Computed Abnormal Problem Commo n tomography CT scan Spiri t result - CHI abnormal [facility] Anxiety Anxiety Problem Common [facility] Primary Primary Problem Common insomnia insomnia [facility] Hearing Hearing Problem Common loss loss [facility] Hyperlipid Hyperlipid Problem C ommon emia emia [facility] [id number] Screening Problem Com mon PSA [facility] (prostate - [facility] specific St antigen) [employer] [id number] Seasonal Problem Comm on allergies [facility] [id number] Atrial Problem Common fibrillati Spirit on, - CHI unspecifie [facility] [id number] Gastroesop Problem Co mmon hageal [facility] reflux - [facility] disease, [facility] esophagiti Center s present [id number] Blood Problem Common tests for Spirit routine - [facility] general [facility] examinatio Medica [facility] [id number] 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, [facility] Callosity [place] of Problem Commo n foot [facility] [id number] 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 Social History Social Habit Start Date Stop Date Quantity Comments Source History of Tobacco [facility] - Use [facility] Sex Assigned At [birth year] [facility] 00:00:00 00:00:00 [facility] Center Smoking Status Start Date Stop Date Source Former Smoker 2022-08-19 00:00:00 2022-08-19 00:00:00 Common S pirit [facility] Medications Ordered Filled Start Stop Current Ordering Indication Dosage Frequency Signature Comments Components Source Medication Medication Date Date Medication? Clinician (SIG) Name Name Acetaminoph Acetaminoph 2021-08 No 1{capsu QID Acetaminop en 500 MG en 500 MG 1-02 le_as_n hen 500 MG 00:00: eeded} 00 [...] MG 1-02 t} 600 MG 00:00: 00 Vitamin D-3 [...] MG -02 t} 600 MG 00:00: 00 Matt Gutierrez 2021-08 No 40mg Common (Triamcinol (Triamcinol 0-27 S pirit one) one) 00:00: - [facility]I 00 [facility] Matt Jacobsonalog 2021-08 No 40mg Common (Triamcinol (Triamcinol 0-27 S pirit one) one) 00:00: - [facility]I 00 [facility] Matt Jacobsonalog 2021-08 No 40mg Common (Triamcinol (Triamcinol 0-27 S pirit one) one) 00:00: - [facility]I 00 [facility] Matt Jacobsonalog 2021-08 No 40mg Common (Triamcinol (Triamcinol 0-27 S pirit one) one) 00:00: - [facility]I 00 [facility] Matt Gutierrez 2021-08 No 40mg Common (Triamcinol (Triamcinol 0-27 S pirit one) one) 00:00: - [facility]I 00 [facility] Kavonalog Kenalog 2021-08 No 40mg Common (Triamcinol (Triamcinol 0-27 S pirit one) one) 00:00: - [facility]I 00 [facility] Matt Kenalog 2021-08 No 40mg Common (Triamcinol (Triamcinol 0-27 S pirit one) one) 00:00: - [facility]I 00 [facility] Matt Kenalog 2021-08 No 40mg Common (Triamcinol (Triamcinol 0-27 S pirit one) one) 00:00: - [facility]I 00 [facility] Diclofenac Diclofenac 2021-08- No Diclofenac Sodium 1 % Sodium 1 % 0-27 12-25 Sodium 1 % 00:00: 00:00 00 :00 Diclofenac Diclofenac 2021-2021- No Diclofenac Sodium 1 % Sodium 1 % 0-27 12-25 Sodium 1 % 00:00: 00:00 00 :00 Diclofenac Diclofenac 2021-2021- No Diclofenac Sodium 1 % Sodium 1 % 0-27 12-25 Sodium 1 % 00:00: 00:00 00 :00 Diclofenac Diclofenac 2021-2021- No Diclofenac Sodium 1 % Sodium 1 % 0-27 12-25 Sodium 1 % 00:00: 00:00 00 :00 Diclofenac Diclofenac 2021-2021- No Diclofenac Sodium 1 % Sodium 1 % 0-27 12-25 Sodium 1 % 00:00: 00:00 00 :00 Diclofenac Diclofenac 2021-2021- No Diclofenac Sodium 1 % Sodium 1 % 0-27 12-25 Sodium 1 % 00:00: 00:00 00 :00 Diclofenac Diclofenac 2021-2021- No Diclofenac Sodium 1 % Sodium 1 % 0-27 12-25 Sodium 1 % 00:00: 00:00 00 :00 Benzonatate Benzonatate 2021-2021- No 1{capsu Benzonatat 200 MG 200 MG 5-16 05-23 le_as_n e 200 MG 00:00: 00:00 eeded} 00 :00 Benzonatate Benzonatate 2021-2021- No 1{capsu Benzonatat 200 MG 200 MG 01-12 le_as_n e 200 MG 00:00: 00:00 eeded} 00 :00 methylPREDN methylPREDN 2021- No QD methylPRED ISolone 4 ISolone 4 01-12 NISolone 4 MG MG 00:00: 00:00 MG 00 :00 methylPREDN methylPREDN 2021- No QD methylPRED ISolone 4 ISolone 4 01-12 NISolone 4 MG MG 00:00: 00:00 MG 00 :00 Azithromyci Azithromyci 2021- No QD Azithromyc n 250 MG n 250 MG -16 - in 250 MG 00:00: 00:00 00 :00 Azithromyci Azithromyci 2021- No QD Azithromyc n 250 MG n 250 MG -16 -21 in 250 MG 00:00: 00:00 00 :00 Flonase Flonase Yes Na Fisher 2 sprays Common 1-15 in each Spirit 00:00: nostril - [facility]I 00 [facility] Zyrtec Zyrtec Yes Na Fisher 1 tablet Co mmon Allergy Allergy 1-15 Spirit 00:00: - [facility]I 00 [facility] Flonase 50 Flonase 50 2018- No 2{spray QD Flonase 50 MCG/ACT MCG/ACT [...] ch_nost 00 ril} Flonase 50 Flonase 50 2018- No 2{spray QD Flonase 50 MCG/ACT MCG/ACT 1-15 s_in_ea MCG/ACT 00:00: ch_nost 00 ril} Flonase 50 Flonase 50 2018- No 2{spray QD Flonase 50 MCG/ACT MCG/ACT 1-15 s_in_ea MCG/ACT 00:00: ch_nost 00 ril} Flonase 50 Flonase 50 2018- No 2{spray QD Flonase 50 MCG/ACT MCG/ACT 1-15 s_in_ea MCG/ACT 00:00: ch_nost 00 ril} Flonase 50 Flonase 50 2018- No 2{spray QD Flonase 50 MCG/ACT MCG/ACT 1-15 s_in_ea MCG/ACT 00:00: ch_nost 00 ril} Flonase 50 Flonase 50 2018- No 2{spray QD Flonase 50 MCG/ACT MCG/ACT 1-15 s_in_ea MCG/ACT 00:00: ch_nost 00 ril} Flonase 50 Flonase 50 2018- No 2{spray QD Flonase 50 MCG/ACT MCG/ACT 1-15 s_in_ea MCG/ACT 00:00: ch_nost 00 ril} Flonase 50 Flonase 50 2018- No 2{spray QD Flonase 50 MCG/ACT MCG/ACT 1-15 s_in_ea MCG/ACT 00:00: ch_nost 00 ril} Flonase 50 Flonase 50 2018- No 2{spray QD Flonase 50 MCG/ACT MCG/ACT 1-15 s_in_ea MCG/ACT 00:00: ch_nost 00 ril} Flonase 50 Flonase 50 2019- No 2{spray QD Flonase 50 MCG/ACT MCG/ACT 1-15 s_in_ea MCG/ACT 00:00: ch_nost 00 ril} Flonase 50 Flonase 50 2018- No 2{spray QD Flonase 50 MCG/ACT MCG/ACT 1-15 s_in_ea MCG/ACT 00:00: ch_nost 00 ril} Flonase 50 Flonase 50 2019- No 2{spray QD Flonase 50 MCG/ACT MCG/ACT 1-15 s_in_ea MCG/ACT 00:00: ch_nost 00 ril} Flonase 50 Flonase 50 2019-0 No 2{spray QD Flonase 50 MCG/ACT MCG/ACT 1-15 s_in_ea MCG/ACT 00:00: _nost 00 ril} Flonase 50 Flonase 50 2018- No 2{spray QD Flonase 50 MCG/ACT MCG/ACT 1-15 s_in_ea MCG/ACT 00:00: ch_nost ril} Flonase 50 Flonase 50 2018- No 2{spray QD Flonase 50 MCG/ACT MCG/ACT 1-15 s_in_ea MCG/ACT 00:00: _nost 00 ril} Flonase 50 Flonase 50 2018- No 2{spray QD Flonase 50 MCG/ACT MCG/ACT 1-15 s_in_ea MCG/ACT 00:00: _nost ril} Flonase 50 Flonase 50 2018- No 2{spray QD Flonase 50 MCG/ACT MCG/ACT 1-15 s_in_ea MCG/ACT 00:00: _nost ril} Flonase 50 Flonase 50 2018-0 No 2{spray QD Flonase 50 MCG/ACT MCG/ACT 1-15 s_in_ea MCG/ACT 00:00: _nost 00 ril} Flonase 50 Flonase 50 2019- No 2{spray QD Flonase 50 MCG/ACT MCG/ACT 1-15 s_in_ea MCG/ACT 00:00: ch_nost 00 ril} Flonase 50 Flonase 50 2019-0 No 2{spray QD Flonase 50 MCG/ACT MCG/ACT 1-15 s_in_ea MCG/ACT 00:00: _nost 00 ril} Flonase 50 Flonase 50 2019-0 No 2{spray QD Flonase 50 MCG/ACT MCG/ACT 1-15 s_in_ea MCG/ACT 00:00: _nost 00 ril} PredniSONE PredniSONE Yes Na Fisher 1 tablet [facility] Mirtazapine Mirtazapine Yes Na Fisher TAKE 1 Common TABLET BY Spirit MOUTH AT [facility] BEDTIME [facility] Atorvastati Atorvastati Yes Na Fisher 1 tablet Common n Calcium n Calcium Spiri t [facility] Eliquis 5 Eliquis 5 Yes Na Fisher one Co mmon mg mg [facility] Doxycycline Doxycycline Yes Na Ifsher 1 tablet Common Hyclate Hyclate [facility] Sotalol HCl Sotalol HCl Yes Na Fisher 1 tablet Common [facility] Sotalol HCl Sotalol HCl No 1{table BID [...] Date Status Commen ts Source Name Name [place] [id number] 2021-09-24 Completed Co mmon [facility] Vaccine (Low Dose Vaccine (Low Dose 09:48:00 [facility] [address] Com[facility] Vaccine (Low Dose Vaccine (Low Dose 09:48:00 [facility] [address] 2021-09-24 Completed Co mmon [facility] Vaccine (Low Dose Vaccine (Low Dose 09:48:00 - [facility] [address] [facility] 2021-09-24 Completed Co mmon [facility] Vaccine (Low Dose Vaccine (Low Dose 09:48:00 - [facility]oster[facility] Booster) [address] [facility] 2021-09-24 Completed Co mmon [facility] Vaccine (Low Dose Vaccine (Low Dose 09:48:00 - [facility] Booster[facility] Booster) [address] [facility] 2021-09-24 Completed Co mmon [facility] Vaccine (Low Dose Vaccine (Low Dose 09:48:00 - [facility] Booster) [address] [facility] 2021-09-24 Completed Co mmon [facility] Vaccine (Low Dose Vaccine (Low Dose 09:48:00 - [facility] Booster) [address] [facility] 2021-09-24 Completed Co mmon [facility] Vaccine (Low Dose Vaccine (Low Dose 09:48:00 - [facility] Booster[facility] Booster) [address] [facility] 2021-09-24 Completed Co mmon [facility] Vaccine (Low Dose Vaccine (Low Dose 09:48:00 - [facility] Booster) Booster) [facility] [facility] 2021-09-24 Completed Co mmon [facility] Vaccine (Low Dose Vaccine (Low Dose 09:48:00 - [facility] Booster) Booster) [facility] [address] COVID19 2021-09-24 Completed Co mmon [facility] Vaccine (Low Dose Vaccine (Low Dose 09:48:00 - [facility] Booster[facility] Booster) [facility] [address] [facility] 2021-09-24 Completed Co mmon [facility] Vaccine (Low Dose Vaccine (Low Dose 09:48:00 - [facility] Booster[facility] Booster) [facility] [address] [facility] 2021-09-24 Completed Co mmon [facility] Vaccine (Low Dose Vaccine (Low Dose 09:48:00 - [facility] Booster) Booster) [facility] [address] [facility] 2021-09-24 Completed Co mmon [facility] Vaccine (Low Dose Vaccine (Low Dose 09:48:00 - [facility] Booster[facility] Booster) [facility] [address] [facility] 2021-09-24 Completed Co mmon [facility] Vaccine (Low Dose Vaccine (Low Dose 09:48:00 - [facility] Booster) Booster) [facility] [address] [facility] 2021-09-24 Completed Co mmon [facility] Vaccine (Low Dose Vaccine (Low Dose 09:48:00 - [facility] Booster[facility] Booster) [facility] [address] [facility] 2021-09-24 Completed Co mmon [facility] Vaccine (Low Dose Vaccine (Low Dose 09:48:00 - [facility] Booster[facility] Booster) [facility] [address] [facility] 2021-09-24 Completed Co mmon [facility] Vaccine (Low Dose Vaccine (Low Dose 09:48:00 - [facility] Booster) Booster) [facility] [address] COVID19 2021-09-24 Completed Co mmon [facility] Vaccine (Low Dose Vaccine (Low Dose 09:48:00 - [facility] Booster) Booster) [facility] [address] [facility] 2021-09-24 Completed Co mmon [facility] Vaccine (Low Dose Vaccine (Low Dose 09:48:00 - [facility] Booster) Booster) [facility] Moderna COVID-19 Moderna COVID-19 2021-09-24 Completed Co mmon [facility] Vaccine (Low Dose Vaccine (Low Dose 09:48:00 - [facility] Booster) Booster) [facility] COVID-19 Vaccine COVID-19 Vaccine 2020-11-13 Completed Co mmon Spirit (Nava) (Nava) 14:14:00 [facility] COVID-19 Vaccine COVID-19 Vaccine 2020-11-13 Completed Co mmon Spirit (Nava) (Nava) 14:14:00 [facility] COVID-19 Vaccine COVID-19 Vaccine 2020-11-13 Completed Co mmon Spirit (Nava) (Nava) 14:14:00 [facility] COVID-19 Vaccine COVID-19 Vaccine 2020-11-13 Completed Co mmon Spirit (Nava) (Nava) 14:14:00 [facility] COVID-19 Vaccine COVID-19 Vaccine 2020-11-13 Completed Co mmon Spirit (Nava) (Nava) 14:14:00 [facility] COVID-19 Vaccine COVID-19 Vaccine 2020-11-13 Completed Co mmon Spirit (Nava) (Nava) 14:14:00 [facility] COVID-19 Vaccine COVID-19 Vaccine 2020-11-13 Completed Co mmon Spirit (Nava) (Nava) 14:14:00 [facility] COVID-19 Vaccine COVID-19 Vaccine 2020-11-13 Completed Co mmon Spirit (Nava) (Nava) 14:14:00 [facility] COVID-19 Vaccine COVID-19 Vaccine 2020-11-13 Completed Co mmon Spirit (Nava) (Nava) 14:14:00 [facility] COVID-19 Vaccine COVID-19 Vaccine 2020-11-13 Completed Co mmon Spirit (Nava) (Nava) 14:14:00 [facility] COVID-19 Vaccine COVID-19 Vaccine 2020-11-13 Completed Co mmon Spirit (Nava) (Nava) 14:14:00 [facility] COVID-19 Vaccine COVID-19 Vaccine 2020-11-13 Completed Co mmon Spirit (Nava) (Nava) 14:14:00 - [facility] COVID-19 Vaccine COVID-19 Vaccine 2020-11-13 Completed Co mmon Spirit (Nava) (Nava) 14:14:00 - [facility] COVID-19 Vaccine COVID-19 Vaccine 2020-11-13 Completed Co mmon Spirit (Nava) (Nava) 14:14:00 - [facility] COVID-19 Vaccine COVID-19 Vaccine 2020-11-13 Completed Co mmon [facility] (Nava) (Nava) 14:14:00 - [facility] COVID-19 Vaccine COVID-19 Vaccine 2020-11-13 Completed Co mmon [facility] (Nava) (Nava) 14:14:00 - [facility] COVID-19 Vaccine COVID-19 Vaccine 2020-11-13 Completed Co mmon Spirit (Nava) (Nava) 14:14:00 - [facility] COVID-19 Vaccine COVID-19 Vaccine 2020-11-13 Completed Co mmon Spirit (Nava) (Nava) 14:14:00 - [facility] COVID-19 Vaccine COVID-19 Vaccine 2020-11-13 Completed Co mmon Spirit (Nava) (Nava) 14:14:00 - [facility] COVID-19 Vaccine COVID-19 Vaccine 2020-11-13 Completed Co mmon Spirit (Nava) (Nava) 14:14:00 - [facility] COVID-19 Vaccine COVID-19 Vaccine 2020-11-13 Completed Co mmon [facility] (Nava) (Nava) 14:14:00 - [facility] COVID-19 Vaccine COVID-19 Vaccine 2020-11-13 Completed Co mmon [facility] (Nava) (Nava) 14:14:00 - [facility] COVID-19 Vaccine COVID-19 Vaccine 2020-11-13 Completed Co mmon Spirit (Nava) (Nava) 14:14:00 - [facility] COVID-19 Vaccine COVID-19 Vaccine 2020-11-13 Completed Co mmon [facility] (Nava) (Nava) 14:14:00 - [facility] COVID-19 Vaccine COVID-19 Vaccine 2020-11-13 Completed Co mmon [facility] (Nava) (Nava) 14:14:00 [facility] Vital Signs Vital Name Observation Time Observation Value Comments Source height 2022-08-19 09:20:00 65.00 [in_i] [facility] weight 2022-08-19 09:20:00 178 [lb_av] [facility] bmi 2022-08-19 09:20:00 29.62 kg/m2 [facility] height 2022-07-14 13:40:00 65.00 [in_i] [facility] weight 2022-07-14 13:40:00 178.2 [lb_av] [facility] temperature 2022-07-14 13:40:00 97.6 [degF] [facility] bmi 2022-07-14 13:40:00 29.65 kg/m2 [facility] oximetry 2022-07-14 13:40:00 97 % [facility] respiratory rate 2022-07-14 13:40:00 16 /min Comm on [facility] blood pressure 2022-07-14 13:40:00 139 mm[Hg] [facility] - systolic [facility] blood pressure 2022-07-14 13:40:00 65 mm[Hg] [facility] - diastolic [facility] height 2022-06-25 08:40:00 65.00 [in_i] [facility] weight 2022-06-25 08:40:00 178.2 [lb_av] [facility] temperature 2022-06-25 08:40:00 97.9 [degF] [facility] bmi 2022-06-25 08:40:00 29.65 kg/m2 [facility] oximetry 2022-06-25 08:40:00 97 % [facility] respiratory rate 2022-06-25 08:40:00 15 /min Comm on [facility] blood pressure 2022-06-25 08:40:00 123 mm[Hg] [facility] systolic [facility] blood pressure 2022-06-25 08:40:00 68 mm[Hg] [facility] diastolic [facility] height 2022-04-10 09:40:00 65.00 [in_i] [facility] weight 2022-04-10 09:40:00 180 [lb_av] [facility] temperature 2022-04-10 09:40:00 99.9 [degF] [facility] bmi 2022-04-10 09:40:00 29.95 kg/m2 [facility] height 2022-01-12 13:00:00 65.00 [in_i] [facility] weight 2022-01-12 13:00:00 180 [lb_av] [facility] temperature 2022-01-12 13:00:00 98.0 [degF] [facility] bmi 2022-01-12 13:00:00 29.95 kg/m2 [facility] height 2021-12-11 11:20:00 65.00 [in_i] [facility] weight 2021-12-11 11:20:00 184.8 [lb_av] [facility] temperature 2021-12-11 11:20:00 97.5 [degF] [facility] bmi 2021-12-11 11:20:00 30.75 kg/m2 [facility] oximetry 2021-12-11 11:20:00 98 % [facility] respiratory rate 2021-12-11 11:20:00 16 /min Comm on [facility] blood pressure 2021-12-11 11:20:00 127 mm[Hg] [facility] - systolic [facility] blood pressure 2021-12-11 11:20:00 68 mm[Hg] Common [facility] - diastolic [facility] height 2021-12-11 11:00:00 65.00 [in_i] Common [facility] weight 2021-12-11 11:00:00 184.8 [lb_av] Common [facility] temperature 2021-12-11 11:00:00 97.5 [degF] Common S [facility] bmi 2021-12-11 11:00:00 30.75 kg/m2 [facility] S [facility] oximetry 2021-12-11 11:00:00 98 % Common [facility] respiratory rate 2021-12-11 11:00:00 16 /min Comm on [facility] blood pressure 2021-12-11 11:00:00 127 mm[Hg] Common [facility] - systolic [facility] blood pressure 2021-12-11 11:00:00 68 mm[Hg] Common [facility] - diastolic [facility] height 2021-09-01 14:00:00 65.00 [in_i] Common [facility] weight 2021-09-01 14:00:00 189 [lb_av] [facility] temperature 2021-09-01 14:00:00 98 [degF] Common S pirit [facility] bmi 2021-09-01 14:00:00 31.45 kg/m2 Common S [facility] oximetry 2021-09-01 14:00:00 98 % Common S [facility] respiratory rate 2021-09-01 14:00:00 16 /min Comm on [facility] blood pressure 2021-09-01 14:00:00 115 mm[Hg] Common [facility] - systolic [facility] blood pressure 2021-09-01 14:00:00 58 mm[Hg] Common [facility] - diastolic [facility] height 2021-05-16 13:20:00 65.00 [in_i] Common [facility] weight 2021-05-16 13:20:00 184 [lb_av] Common [facility] temperature 2021-05-16 13:20:00 97.9 [degF] Common [facility] bmi 2021-05-16 13:20:00 30.62 kg/m2 [facility] oximetry 2021-05-16 13:20:00 97 % [facility] respiratory rate 2021-05-16 13:20:00 20 /min Comm on [facility] blood pressure 2021-05-16 13:20:00 114 mm[Hg] Common [facility] - systolic [facility] blood pressure 2021-05-16 13:20:00 65 mm[Hg] Common [facility] diastolic [facility] Procedures This patient has no known procedures. Encounters Start End Encounter Admission Attending Care Care Encounter Source Date/Time Date/Time Type Type Clinicians Facility Department ID 2022-12-03 Outpatient Christianson, STLMLC STLMLC [id number] Common 15:09:00 Avnee [id number] [facility] 2022-11-24 Outpatient Cate, STLMLC STLMLC [id number] Common 10:24:00 Autumn [id number] [facility] 2022-08-17 Outpatient Fisher, Na STLMLC STLMLC [id number] 2 Common 07:49:00 [facility] 2022-08-11 Outpatient Fisher, Na STLMLC STLMLC [id number] 2 Common 09:05:01 [facility] 2022-07-13 Outpatient Fisher, Na STLMLC STLMLC [id number] 2 Common 08:38:00 [facility] 2022-06-23 Outpatient Fisher, Na STLMLC STLMLC [id number] 2 Common 14:13:01 [facility] 2022-04-14 Outpatient Fisher, Na STLMLC STLMLC [id number] 2 Common 10:06:01 [facility] 2022-04-09 Outpatient Fisher, Na STLMLC STLMLC [id number] 2 Common 09:03:00 [facility] 2021-12-11 Outpatient Fisher, Na STLMLC STLMLC [id number] 2 Common 10:49:00 [facility] 2021-12-09 Outpatient Fisher, Na STLMLC STLMLC [id number] 2 Common 10:46:00 [facility] 2021-10-01 Outpatient Fisher, Na STLMLC STLMLC [id number] 2 Common 09:38:00 [facility] 2021-09-24 Outpatient Fisher, Na STLMLC STLMLC [id number] 2 Common 14:30:13 [facility] 2021-09-24 Outpatient Fisher, Na STLMLC STLMLC [id number] 2 Common 14:29:47 [facility] 2021-09-24 Outpatient Fisher, Na STLMLC STLMLC [id number] 2 Common 13:35:17 [facility] 2021-09-24 Outpatient Fisher, Na STLMLC STLMLC [id number] 2 Common 13:15:27 [id number] [facility] 2021-09-24 Outpatient Fisher, Na STLMLC STLMLC [id number] 2 Common 12:41:52 [id number] [facility] 2021-09-24 Outpatient Fisher, Na STLMLC STLMLC [id number] 2 Common 12:41:18 [id number] [facility] 2021-09-24 Outpatient Fisher, Na STLMLC STLMLC [id number] 2 Common 12:40:47 [id number] [facility] 2021-09-24 Outpatient Fisher, Na STLMLC STLMLC [id number] 2 Common 12:14:13 [id number] [facility] 2021-09-24 Outpatient Fisher, Na STLMLC STLMLC [id number] 2 Common 12:13:00 [id number] [facility] 2021-09-24 Outpatient Fisher, Na STLMLC STLMLC [id number] 2 Common 11:54:57 [id number] [facility] 2021-09-24 Outpatient Fisehr, Na STLMLC STLMLC [id number] 2 Common 11:49:11 [id number] [facility] 2021-09-24 Outpatient Fisher, Na STLMLC STLMLC [id number] 2 Common 11:45:30 [id number] [facility] 2021-09-24 Outpatient Fisher, Na STLMLC STLMLC [id number] 2 Common 11:44:12 [id number] [facility] 2021-09-24 Outpatient Fisher, Na STLMLC STLMLC [id number] 2 Common 11:21:52 [id number] [facility] 2021-09-24 Outpatient Fisher, Na STLMLC STLMLC [id number] Common 11:11:21 [id number] [facility] 2021-09-24 Outpatient Fisher, Na STLMLC STLMLC [id number] Common 11:08:37 [id number] [facility] 2022-08-19 2022-08-19 OFFICE STLMLC STLMLC [id number] Co mmon 00:00:00 00:00:00 VISIT EST Spir it PT LEVEL 3 [facility] 2022-07-20 2022-07-20 (TEL) STLMLC STLMLC [id number] Co mmon 00:00:00 00:00:00 [facility] 2022-07-14 2022-07-14 OFFICE STLMLC STLMLC [id number] Co mmon 00:00:00 00:00:00 VISIT EST Spir it PT LEVEL 3 [facility] 2022-07-09 2022-07-09 (TEL) STLMLC STLMLC [id number] Co mmon 00:00:00 00:00:00 [facility] 2022-07-07 2022-07-07 (TEL) STLMLC STLMLC [id number] Co mmon 00:00:00 00:00:00 [facility] 2022-07-05 2022-07-05 (TEL) STLMLC STLMLC [id number] Co mmon 00:00:00 00:00:00 [facility] 2022-07-01 2022-07-01 (TEL) STLMLC STLMLC [id number] Co mmon 00:00:00 00:00:00 [facility] 2022-06-25 2022-06-25 OFFICE STLMLC STLMLC [id number] Co mmon 00:00:00 00:00:00 VISIT EST Spir it PT LEVEL 3 [facility] 2022-06-22 2022-06-22 (TEL) STLMLC STLMLC [id number] Co mmon 00:00:00 00:00:00 [facility] 2022-04-13 2022-04-13 OFFICE STLMLC STLMLC [id number] Co mmon 00:00:00 00:00:00 VISIT EST Spir it PT LEVEL 3 [facility] 2022-04-10 2022-04-10 OFFICE STLMLC STLMLC [id number] Co mmon 00:00:00 00:00:00 VISIT EST Spir it PT LEVEL 3 [facility] 2022-04-09 2022-04-09 (TEL) STLMLC STLMLC [id number] Co mmon 00:00:00 00:00:00 [facility] 2022-03-25 2022-03-25 (TEL) STLMLC STLMLC [id number] Co mmon 00:00:00 00:00:00 [facility] 2022-01-12 2022-01-12 OFFICE STLMLC STLMLC [id number] Co mmon 00:00:00 00:00:00 VISIT EST Spir it PT LEVEL 3 [facility] 2022-01-12 2022-01-12 (TEL) STLMLC STLMLC [id number] Co mmon 00:00:00 00:00:00 [facility] 2021-12-15 2021-12-15 (TEL) STLMLC STLMLC [id number] Co mmon 00:00:00 00:00:00 [facility] 2021-12-15 2021-12-15 (TEL) STLMLC STLMLC [id number] Co mmon 00:00:00 00:00:00 [facility] 2021-12-11 2021-12-11 OFFICE STLMLC STLMLC [id number] Co mmon 00:00:00 00:00:00 VISIT EST Spir it PT LEVEL 3 [facility] 2021-12-11 2021-12-11 SUB ANNUAL STLMLC STLMLC [id number] Common 00:00:00 00:00:00 MCR [facility] VISIT [facility] 2021-09-25 2021-09-25 (TEL) STLMLC STLMLC [id number] Co mmon 00:00:00 00:00:00 [facility] 2021-09-24 2021-09-24 (COVID STLMLC STLMLC [id number] Co mmon 00:00:00 00:00:00 Inj) COVID Spi rit [facility] 2021-09-01 2021-09-01 OFFICE STLMLC STLMLC [id number] Co mmon 00:00:00 00:00:00 VISIT EST Spir it PT LEVEL 3 [facility] 2021-06-01 2021-06-01 (TEL) STLMLC STLMLC [id number] Co mmon 00:00:00 00:00:00 [facility] 2021-05-20 2021-05-20 (TEL) STLMLC STLMLC [id number] Co mmon 00:00:00 00:00:00 [facility] 2021-05-16 2021-05-16 OFFICE STLMLC STLMLC [id number] Co mmon 00:00:00 00:00:00 VISIT EST Spir it PT LEVEL 3 [facility] 2021-04-01 2021-04-01 Outpatient STLMLC STLMLC [id number] Common 00:00:00 00:00:00 [facility] 2021-04-01 2021-04-01 Outpatient STLMLC STLMLC [id number] Common 00:00:00 00:00:00 [facility] 2021-02-16 2021-02-16 Outpatient STLMLC STLMLC [id number] Common 00:00:00 00:00:00 [facility] 2021-02-13 2021-02-13 Outpatient STLMLC STLMLC [id number] Common 00:00:00 00:00:00 [facility] 2020-11-13 2020-11-13 Outpatient STLMLC STLMLC [id number] Common 00:00:00 00:00:00 [facility] 2020-11-13 2020-11-13 Outpatient STLMLC STLMLC [id number] Common 00:00:00 00:00:00 [facility] 2020-11-12 2020-11-12 Outpatient STLMLC STLMLC [id number] Common 00:00:00 00:00:00 [facility] 2020-08-14 2020-08-14 Outpatient STLMLC STLMLC [id number] Common 00:00:00 00:00:00 [facility] 2020-08-14 2020-08-14 Outpatient STLMLC STLMLC [id number] Common 00:00:00 00:00:00 [facility] 2020-06-11 2020-06-11 Outpatient STLMLC STLMLC [id number] Common 00:00:00 00:00:00 [facility] 2020-05-23 2020-05-23 Outpatient STLMLC STLMLC [id number] Common 00:00:00 00:00:00 [facility] 2020-05-15 2020-05-15 [facility] [id number] Common 10:53:00 10:53:[address] [facility] 2020-05-15 2020-05-15 [facility] [id number] Common 10:20:00 10:20:[address] [facility] 2020-04-03 2020-04-03 [facility] [id number] Common 09:59:00 09:59:[address] [facility] 2020-03-27 2020-03-27 [facility] [id number] Common 09:32:00 09:32:[address] [facility] 2020-03-25 2020-03-25 [facility] [id number] Common 13:15:00 13:15:[address] [facility] 2020-03-25 2020-03-25 [facility] [id number] Common 12:20:00 12:20:[address] [facility] 2020-03-25 2020-03-25 [facility] [id number] Common 08:53:00 08:53:[address] [facility] 2020-02-21 2020-02-21 [facility] [id number] Common 11:50:00 11:50:[address] [facility] 2020-02-15 2020-02-15 [facility] [id number] Common 11:54:00 11:54:[address] [facility] 2020-02-14 2020-02-14 [facility] [id number] Common 11:41:00 11:41:[address] [facility] 2020-02-13 2020-02-13 [facility] [id number] Common 13:40:00 13:40:[address] [facility] 2020-01-21 2020-01-21 [facility] [id number] Common 23:44:00 23:44:[address] [facility] 2020-01-15 2020-01-15 [facility] [id number] Common 13:00:00 13:00:[address] [facility] 2020-01-10 2020-01-10 [facility] [id number] Common 15:43:00 15:43:[address] [facility] 2020-01-10 2020-01-10 [facility] [id number] Common 14:19:00 14:19:[address] [facility] 2020-01-01 2020-01-01 [facility] [id number] Common 14:59:00 14:59:[address] [facility] 2019-04-19 2019-04-19 [facility] [id number] Common 10:00:00 10:00:[address] [facility] Results Test Description Test Time Test Comments Results Result Comments Source SARS-COV2/RT-PCR ([facility]) 2019-12-29 09:15:00 Test Item Value Reference Range Interpretation Comme nts SARS-COV2/RT-PCR (test code = 0140204) Not Detected Not Detected, N egative SARS-COV-2 PERFORMING LAB (test code = [facility] Negative results do not preclude SARS-CoV-2 infection [...] of the Act.Fact Sheet for Healthcare Pro viders:https://www.[employer]/Documents/Xpert%20Xpress%20SARS%20CoV-2/Fact%20Sh eets/302-3802%36ZYAA-FOM-7%20HEALTHCARE%20PROVIDERS%20FACT%20SHEET.pdfFact Sheet for Healthcare Patients:https://www.[employer]/Documents/Xpert%20Xpress%20SARS%20CoV-2/Fact%20Sheets/302-3801%20SARS-COV -2%20PATIENT%20FACT%20SHEET.pdfPerforming Laboratory:[address] [place], [place] [address]YEXQ-[id number]/RT-PCR ([facility]) 2019-12-25 20:26:00 Test Item Value Reference Range Interpretation Comments SARS-COV2/RT-PCR (test Not Detected Not Detected, Negative code = [id number]) SARS-COV-2 PERFORMING LAB [facility] (test code = 9911153) Negative results do not preclude SARS-CoV-2 infection [...] of the Act.Fact Sheet for Healthcare Pro viders:https://www.[employer]k/Documents/Xpert%20Xpress%20SARS%20CoV-2/Fact%20Sh eets/302-3802%23KOIW-CQG-4%20HEALTHCARE%20PROVIDERS%20FACT%20SHEET.pdfFact Sheet for Healthcare Patients:https://www.[employer]/Documents/Xpert%20Xpress%20SARS%20CoV-2/Fact%20Sheets/302-3801%20SARS-COV -2%20PATIENT%20FACT%20SHEET.pdfPerforming Laboratory:[facility], [place] [address]JTP, COVID 19 Antigen + Flu by [facility], COVID 19 Antigen + Flu by Rosibel
[2023-03-03] MEDS ORDERED: HYDROCODONE/APAP 10/325 TAB ONE (16:44)
--- NOTE | 2023-03-03 17:31 | RAD REPORT ---
EXAM DESCRIPTION: CT - Head C Spine Cap Wo Con - 03/03/2023 5:08 pm CLINICAL HISTORY: Head and neck injury with chest and abdominal pain status post fall TECHNIQUE: Computed axial tomography of head, neck, chest, abdomen and pelvis obtained. IV and oral contrast not requested. Coronal and sagittal reconstruction performed. All CT scans are performed using dose optimization technique as appropriate and may include automated exposure control or mA/KV adjustment according to patient size. COMPARISON: CT head and cervical spine August 2022 CT chest 2019 FINDINGS: An intracranial bleed is not seen. The ventricles are normal in caliber. An extra-axial fluid collection is not noted. . Fluid within the sinuses/mastoids is not seen. A cervical fracture is not seen. No dislocation is noted. 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 A mediastinal hematoma is not noted. A pleural effusion is not seen. A lung contusion is not present. The liver,spleen, pancreas, adrenals,kidneys and bladder do not demonstrate an acute traumatic injury Calcified pleural plaques. Gallstones. No gallbladder wall thickening IMPRESSION: No acute intracranial abnormality is seen. A cervical fracture is not visualized. If the patient continues have symptoms to suggest intracrania l/spinal cord pathology MRI be recommended No acute traumatic abnormality involving the chest/abdomen/pelvis.
--- NOTE | 2023-03-03 17:37 | EDPHYS ---
Physician Documentation [facility] Name: Xavier Houser Age: 82 yrs Sex: Male : 1940 Arrival Date: 03/03/2023 Time: 16:06 Bed 17 Private MD: ED Physician Germain Dinero HPI: 03/03 16:27 This 82 yrs old Male presents to ER via Wheelchair with complaints of Fall sb4 Injury. 16:27 Details of fall: The patient fell from a height, down approximately 2 stairs. Onset: sb4 The symptoms/episode began/occurred just prior to arrival. 82 year old male with past medical history of atrial fibrillation on Eliquis, arthritis, and hyperlipidemia who presented to the emergency department status post fall. He states that he was on his front porch, thinks the screen door hit him and caused him to fall down to stairs, which were concrete. He states he did hit his head on the right side, denies loss of consciousness. He is also complaining of pain to his right chest and hip. He did last take his Eliquis this morning. Historical: - Allergies: 16:13 mushrooms; ld1 - Home Meds: 16:13 Eliquis Oral [Active]; tramadol 50 mg Oral tablet once [Active]; ld1 - PMHx: 16:13 Arthritis; Atrial fibrillation; ld1 - PSHx: 16:13 kidney; ld1 - Immunization history:: Adult Immunizations up to date, Client reports receiving the 2nd dose of the Covid vaccine. - Social history:: Smoking status: Patient denies any tobacco usage or history of. Patient/guardian denies using alcohol. - Immunization history: Last tetanus immunization: unknown. ROS: 16:29 Constitutional: Negative for fever, chills, and weight loss, Eyes: Negative for injury, sb4 pain, redness, and discharge, ENT: Negative for injury, pain, and discharge, Cardiovascular: Negative for chest pain, palpitations, and edema, Respiratory: Negative for shortness of breath, cough, wheezing, and pleuritic chest pain, Abdomen/GI: Negative for abdominal pain, nausea, vomiting, diarrhea, and constipation, Skin: Negative for injury, rash, and discoloration. 16:29 Back: Positive for injury or acute deformity, pain at rest, pain with movement. 16:29 MS/extremity: Positive for injury or acute deformity, pain. Exam: 16:29 Constitutional: This is a well developed, well nourished patient who is awake, alert, sb4 and in no acute distress. Head/Face: Normocephalic, atraumatic. Eyes: Extra-ocular motions intact. Periorbital areas with no swelling, redness, or edema. ENT: Mucous membranes moist. Neck: Supple, full range of motion without nuchal rigidity, or vertebral point tenderness. Cardiovascular: Regular rate and rhythm with a normal S1 and S2. Respiratory: Lungs have equal breath sounds bilaterally, clear to auscultation and percussion. No rales, rhonchi or wheezes noted. No increased work of breathing, no retractions or nasal flaring. Abdomen/GI: Soft, non-tender, no distension. Back: No spinal tenderness. No costovertebral tenderness. Full range of motion. Skin: Warm, dry with normal turgor. Normal color with no rashes, no lesions, and no evidence of cellulitis. MS/ Extremity: Pulses equal, no cyanosis. Neurovascular intact. Full, normal range of motion. Neuro: Awake and alert, GCS 15, oriented to person, place, time, and situation. Vital Signs: 16:13 BP 148 / 74; Pulse 76; Resp 18; Temp 98.6(O); Pulse Ox 99% on R/A; Weight 74.84 kg; ld1 Height 5 ft. 5 in. ; Pain 9/10; 17:55 BP 122 / 68; Pulse 66; Resp 18; Pulse Ox 98% on R/A; db 16:13 Body Mass Index 27.46 (74.84 kg, 165.1 cm) ld1 16:13 Pain Scale: Adult ld1 Harsh Coma Score: 17:55 Eye Response: spontaneous(4). Motor Response: obeys commands(6). Verbal Response: db oriented(5). Total: 15. Trauma Score (Adult): 17:55 Eye Response: spontaneous(1); Verbal Response: oriented(1); Motor Response: obeys db commands(2); Systolic BP: > 89 mm Hg(4); Respiratory Rate: 10 to 29 per min(4); [place] Score: 15; Trauma Score: 12 MDM: 16:12 Patient medically screened. sb4 16:29 Differential diagnosis: closed head injury, concussion, rib fracture, pneumothorax, hip sb4 fracture. Historians other than the Patient: Daughter/Son: daughter. 17:44 Data reviewed: vital signs, nurses notes, radiologic studies, CT scan, and as a result, sb4 I will discharge patient. Consideration of Admission/Observation Escalation of care including admission/observation considered. Test considered but Not performed: Labs: not necessary at this time. Counseling: I had a detailed discussion with the patient and/or guardian regarding: the historical points, exam findings, and any diagnostic results supporting the discharge/admit diagnosis, radiology results, to return to the emergency department if symptoms worsen or persist or if there are any questions or concerns that arise at home. Medication response: [place] 10. Response to treatment: the patient's symptoms have markedly improved after treatment, and as a result, I will discharge patient. Special discussion: Based on the patient's history, exam and DX evaluation, there is no indication for emergent intervention or inpatient TX. It is understood by the patient/guardian that if the SXs persist or worsen they need to return immediately for re-evaluation. 03/03 16:17 Order name: CT Traumagram (Head C Spine CAP wo con); Complete Time: 17:32 ld1 Administered Medications: 16:38 Drug: [place] PO 10 mg-325 mg 1 tabs Route: PO; db 17:45 Follow up: Response: No adverse reaction db Disposition: 18:19 Co-signature as Attending Physician, Germain Dinero DO I was immediately available on-site ms3 in the Emergency Department for consultation in the care of the patient. Disposition Summary: 03/03/23 17:37 Discharge Ordered Location: Home sb4 Problem: new sb4 Symptoms: have improved sb4 Condition: Stable sb4 Diagnosis - Fall (on) (from) other stairs and steps sb4 Followup: sb4 - With: Private Physician - When: 2 - 3 days - Reason: Recheck today's complaints, Re-evaluation by your physician Discharge Instructions: - Discharge Summary Sheet sb4 - Fall Prevention in the Home, Adult, [id number] sb4 Forms: - Medication Reconciliation Form sb4 - Thank You Letter sb4 - Antibiotic Education sb4 - Prescription Opioid Use sb4 - [email or web address] sb4 Prescriptions: - methocarbamol 750 mg Oral Tablet - take 1 tablet by ORAL route 3 times per day; 15 tablet; Refills: 0, Product sb4 Selection Permitted Signatures: Dispatcher [employer] EDGermain Hardin, DO DO ms3 Carlie Dinero RN RN ld1 May Lora RN RN db Mirta Alberto, SMITHA BONE sb4
--- NOTE | 2023-03-03 17:37 | ER ---
Nurse's Notes [facility] Name: Xavier Houser Age: 82 yrs Sex: Male : 1940 Arrival Date: 03/03/2023 Time: 16:06 Bed 17 Private MD: Diagnosis: Fall (on) (from) other stairs and steps Presentation: 03/03 16:13 Chief complaint: Patient states: Fell off of stairs 40 min ago - pt is on blood ld1 thinners. C/O pain to right side of face, head, right arm/leg, right ribs. "Entire right side.". Coronavirus screen: At this time, the client does not indicate any symptoms associated with coronavirus-19. Ebola Screen: No symptoms or risks identified at this time. Initial Sepsis Screen: Does the patient meet any 2 criteria? No. Patient's initial sepsis screen is negative. Does the patient have a suspected source of infection? No. Patient's initial sepsis screen is negative. Risk Assessment: Do you want to hurt yourself or someone else? Patient reports no desire to harm self or others. Onset of symptoms was March 03, 2023. 16:13 Method Of Arrival: Wheelchair ld1 16:13 Acuity: DAISY 3 ld1 16:50 Care prior to arrival: None. Mechanism of Injury: No Mechanism of Injury. Trauma event db details: Injury occurred in the [facility]. Triage Assessment: 16:13 General: Appears in no apparent distress. comfortable, Behavior is calm, cooperative, ld1 appropriate for age. Pain: Complains of pain in face, chest, abdomen, right hand, right arm and right leg Pain does not radiate. Pain currently is 9 out of 10 on a pain scale. Quality of pain is described as throbbing. EENT: No signs and/or symptoms were reported regarding the EENT system. Neuro: Level of Consciousness is awake, alert, obeys commands, Oriented to person, place, time, situation. Cardiovascular: Capillary refill < 3 seconds Patient's skin is warm and dry. Respiratory: Airway is patent Respiratory effort is even, unlabored. GI: Abdomen is flat, non-distended. : No signs and/or symptoms were reported regarding the genitourinary system. Derm: No signs and/or symptoms reported regarding the dermatologic system. Musculoskeletal: No signs and/or symptoms reported regarding the musculoskeletal system. Trauma Activation: Not Applicable Physician: ED Physician; Name: ; Notified At: ; Arrived At: Physician: General Surgeon; Name: ; Notified At: ; Arrived At: Physician: Radiology; Name: ; Notified At: ; Arrived At: Physician: Respiratory; Name: ; Notified At: ; Arrived At: Physician: Lab; Name: ; Notified At: ; Arrived At: Historical: - Allergies: 16:13 mushrooms; ld1 - Home Meds: 16:13 Eliquis Oral [Active]; tramadol 50 mg Oral tablet once [Active]; ld1 - PMHx: 16:13 Arthritis; Atrial fibrillation; ld1 - PSHx: 16:13 kidney; ld1 - Immunization history:: Adult Immunizations up to date, Client reports receiving the 2nd dose of the Covid vaccine. - Social history:: Smoking status: Patient denies any tobacco usage or history of. Patient/guardian denies using alcohol. - Immunization history: Last tetanus immunization: unknown. Screenin:30 [facility] ED Fall Risk Assessment (Adult) History of falling in the last 3 months, db including since admission Yes- single mechanical fall (1 pt) Confusion or Disorientation No (0 pts) Intoxicated or Sedated No (0 pts) Impaired Gait No (0 pts) Mobility Assist Device Used No (0 pt) Altered Elimination No (0 pt) Score/Fall Risk Level 0 - 2 = Low Risk Oriented to surroundings, Maintained a safe environment. Abuse screen: Denies threats or abuse. Denies injuries from another. Nutritional screening: No deficits noted. Tuberculosis screening: No symptoms or risk factors identified. Primary Survey: 17:58 NO uncontrolled hemorrhage observed. A: The client is awake and alert. The airway is db patent. The client is alert. Airway: patent. Breathing/Chest: Spontaneous respiratory effort, equal unlabored respirations, breath sounds clear bilaterally, regular pattern, symmetrical chest rise and fall. Respiratory effort: spontaneous. Circulation: No external hemorrhage present. Regular and strong central pulse, skin warm/dry/normal color. Disability Pupils are equal, round, reactive to light and accommodation. Client is alert. Exposure/Environment: There is no evidence of uncontrolled external bleeding. Obvious injury(ies) are noted at this time: right side and ribs. Reassessment Alertness and Airway: Awake and alert. The airway is patent. Breathing: Spontaneous respiratory effort, equal unlabored respirations, breath sounds clear bilaterally, regular pattern with symmetrical chest rise and fall. Circulation: No external hemorrhage noted. Regular and strong central pulse, skin warm/dry/normal color. Disability: Alert. Assessment: 16:18 Reassessment: HOLDEN Murphy at bedside assessing patient. ld1 16:30 Reassessment: Patient appears in no apparent distress at this time. Patient and/or db family updated on plan of care and expected duration. Pain level reassessed. Patient is alert, oriented x 3, equal unlabored respirations, skin warm/dry/pink. General: Appears in no apparent distress. comfortable, Behavior is calm, cooperative. Neuro: Level of Consciousness is awake, alert, obeys commands, Oriented to person, place, time, situation, Speech is normal. 17:30 Reassessment: Patient appears in no apparent distress at this time. Patient and/or db family updated on plan of care and expected duration. Pain level reassessed. Patient is alert, oriented x 3, equal unlabored respirations, skin warm/dry/pink. General: Appears in no apparent distress. comfortable, Behavior is calm, cooperative. Neuro: Level of Consciousness is awake, alert, obeys commands, Oriented to person, place, time, situation. Respiratory: Airway is patent Respiratory effort is even, unlabored, Respiratory pattern is regular, symmetrical. Vital Signs: 16:13 BP 148 / 74; Pulse 76; Resp 18; Temp 98.6(O); Pulse Ox 99% on R/A; Weight 74.84 kg; ld1 Height 5 ft. 5 in. ; Pain 9/10; 17:55 BP 122 / 68; Pulse 66; Resp 18; Pulse Ox 98% on R/A; db 16:13 Body Mass Index 27.46 (74.84 kg, 165.1 cm) ld1 16:13 Pain Scale: Adult ld1 Peck Coma Score: 17:55 Eye Response: spontaneous(4). Motor Response: obeys commands(6). Verbal Response: db oriented(5). Total: 15. Trauma Score (Adult): 17:55 Eye Response: spontaneous(1); Verbal Response: oriented(1); Motor Response: obeys db commands(2); Systolic BP: > 89 mm Hg(4); Respiratory Rate: 10 to 29 per min(4); Peck Score: 15; Trauma Score: 12 ED Course: 16:07 Patient arrived in ED. rg4 16:11 [facility] sb4 16:11 Germain Dinero DO is Attending Physician. sb4 16:13 Arm band placed on right wrist. ld1 16:15 Triage completed. ld1 16:30 Patient maintains SpO2 saturation greater than 95% on room air. db 16:30 Thermoregulation: warm blanket given to patient. db 16:32 May Lora, RN is Primary Nurse. db 17:10 CT Traumagram (Head C Spine CAP wo con) In Process Unspecified. EDMS 17:30 Patient has correct armband on for positive identification. Bed in low position. Call db light in reach. Side rails up X 1. Pulse ox on. NIBP on. Warm blanket given. 17:30 No provider procedures requiring assistance completed. Patient did not have IV access db during this emergency room visit. Administered Medications: 16:38 Drug: [place] PO 10 mg-325 mg 1 tabs Route: PO; db 17:45 Follow up: Response: No adverse reaction db Medication: 17:30 VIS not applicable for this client. db Intake: 17:55 PO: 0ml; Total: 0ml. db Outcome: 17:30 Discharged to home via wheelchair, with family. db 17:30 Condition: stable 17:30 Discharge instructions given to patient, family, Instructed on discharge instructions, follow up and referral plans. Prescriptions given X 1. 17:37 Discharge ordered by MD. sb4 17:59 Patient's length of stay was not longer than 2 hours. db 18:00 Patient left the ED. db Signatures: Dispatcher [employer] Deborah Perez rg4 Carlie Dinero, REENA RN ld1 May Lora, RN RN db Mirta Alberto PA-C PA-C sb4
[2023-03-03 19:16] VITALS: TEMP 98.6
[2023-03-03 19:17] VITALS: BP 122/68; O2SAT 98
== END 2023-03-03 18:00 | disposition home or self-care (01) ==
LOC: ER 16:06
DX: R07.9 Chest pain, unspecified (principal); M25.551 Pain in right hip; W10.8XXA Fall (on) (from) other stairs and steps, initial encounter; I48.91 Unspecified atrial fibrillation; Z79.01 Long term (current) use of anticoagulants; Z91.018 Allergy to other foods
CPT/HCPCS: 70450; 71250; 72125; 99284

== ENCOUNTER 2023-12-16 03:38 | Emergency (ER) | payer OTHER ==
[2023-12-16] MEDS ORDERED: TETRACAINE HCL 0.5% 4ML OPTH ONE (04:52)
[2023-12-16] MEDS ORDERED: MORPHINE 4 MG/ML SYR ONE (05:06)
[2023-12-16] MEDS ORDERED: METOCLOPRAMIDE 10 MG/2mL INJ ONE (05:06)
--- NOTE | 2023-12-16 05:32 | ER ---
Nurse's Notes [facility] Name: Xavier Houser Age: 83 yrs Sex: Male : 1940 Arrival Date: 12/16/2023 Time: 03:38 Bed 16 Private MD: Diagnosis: Vitreous hemorrhage, right eye Presentation: 12/15 03:46 Chief complaint: Patient states: right side forehead pain and right eye pain of 6,onset pf1 2100 last night with vision loss to right eye. Daughter stated patient had partial vision loss to right eye,onset 3 years and has followed up with an eye doctor for macular degeneration. 03:46 Coronavirus screen: Vaccine status: Patient reports receiving the 1st dose of the Covid pf1 vaccine. Client denies travel out of the [place] in the last 14 days. At this time, the client does not indicate any symptoms associated with coronavirus-19. Ebola Screen: Patient negative for fever greater than or equal to 101.5 degrees Fahrenheit, and additional compatible Ebola Virus Disease symptoms. Initial Sepsis Screen: Does the patient meet any 2 criteria? No. Patient's initial sepsis screen is negative. Does the patient have a suspected source of infection? No. Patient's initial sepsis screen is negative. Risk Assessment: Do you want to hurt yourself or someone else? Patient reports no desire to harm self or others. Onset of symptoms was December 15, 2023 at 21:00. 03:46 Method Of Arrival: Wheelchair pf1 03:46 Acuity: DAISY 3 pf1 Triage Assessment: 03:50 General: Appears in no apparent distress. comfortable, well groomed, well developed, pf1 Behavior is calm, cooperative, appropriate for age, quiet. 03:50 Pain: Complains of pain in right forehead pain and right eye pain. Neuro: Level of pf1 Consciousness is awake, alert, obeys commands, Oriented to person, place, time, situation, Reports vision loss to right eye. Historical: - Allergies: 04:04 mushrooms; pf1 - Home Meds: 05:31 Eliquis 5 mg oral tablet 1 tab 2 times per day [Active]; tramadol 50 mg Oral tablet jw7 once [Active]; atorvastatin oral [Active]; multivitamin oral [Active]; - PMHx: 04:04 Arthritis; Atrial fibrillation; pf1 04:07 urolithiasis; pf1 - PSHx: 04:04 kidney; pf1 - Immunization history:: Adult Immunizations up to date, Client reports receiving the Crow \T\ Crow single-dose vaccine. Last tetanus immunization: < 5 years ago Flu vaccine is not up to date. - Infectious Disease History:: Denies. - Social history:: Smoking status: Patient denies any tobacco usage or history of. Patient/guardian denies using alcohol, street drugs. - Family history:: not pertinent. Screenin:00 Abuse screen: Denies threats or abuse. Denies injuries from another. jw7 04:00 [facility] ED Fall Risk Assessment (Adult) History of falling in the last 3 months, jw7 including since admission No falls in past 3 months (0 pts) Confusion or Disorientation No (0 pts) Intoxicated or Sedated No (0 pts) Impaired Gait No (0 pts) Mobility Assist Device Used No (0 pt) Altered Elimination No (0 pt) Score/Fall Risk Level 0 - 2 = Low Risk Oriented to surroundings, Maintained a safe environment, Educated pt \T\ family on fall prevention, incl call for assistance when getting out of bed. Nutritional screening: No deficits noted. Tuberculosis screening: No symptoms or risk factors identified. Assessment: 04:00 General: Appears in no apparent distress. uncomfortable, Behavior is calm, cooperative. jw7 04:00 Pain: Complains of pain in right eye Pain does not radiate. Pain currently is 6 out of jw7 10 on a pain scale. Quality of pain is described as throbbing, Pain began gradually, Is continuous, Alleviated by medications. Neuro: Level of Consciousness is awake, alert, obeys commands, Oriented to person, place, time, situation, Right eye is non-reactive with pinpoint pupil. . Cardiovascular: Heart tones S1 S2 present Capillary refill < 3 seconds Clubbing of nail beds is absent JVD is absent Patient's skin is warm and dry. Respiratory: Airway is patent Trachea midline Respiratory effort is even, unlabored, Respiratory pattern is regular, symmetrical, Breath sounds are clear bilaterally. GI: Abdomen is flat, non-distended, Bowel sounds present X 4 quads. Abd is soft and non tender X 4 quads. : No deficits noted. No signs and/or symptoms were reported regarding the genitourinary system. EENT: Sclera/Cornea are reddened in outer aspect of conjuctiva of right eye, iris of right eye and inner aspect of conjuctiva of right eye. Derm: Skin is intact, is healthy with good turgor, Skin is dry, Skin is normal, Skin temperature is warm. Musculoskeletal: Circulation, motion, and sensation intact. Range of motion: intact in all extremities. 05:00 Reassessment: Patient appears in no apparent distress at this time. No changes from 7 previously documented assessment. Patient and/or family updated on plan of care and expected duration. Pain level reassessed. Patient is alert, oriented x 3, equal unlabored respirations, skin warm/dry/pink. 06:00 Reassessment: Patient appears in no apparent distress at this time. Patient and/or jw7 family updated on plan of care and expected duration. Pain level reassessed. Patient is alert, oriented x 3, equal unlabored respirations, skin warm/dry/pink. Patient states symptoms have improved. 06:44 General: Attempted to call report, placed on hold for 12 minutes, no answer. . jw7 06:54 Reassessment: Patient appears in no apparent distress at this time. No changes from jw7 previously documented assessment. Patient and/or family updated on plan of care and expected duration. Pain level reassessed. Patient is alert, oriented x 3, equal unlabored respirations, skin warm/dry/pink. 07:00 General: Report Given to REENA Franco . jw7 Vital Signs: 03:46 BP 179 / 83; Pulse 71; Resp 16; Temp 97.9; Pulse Ox 100% on R/A; Weight 80.29 kg; Pain pf1 6/10; 04:00 BP 155 / 72; Pulse 65; Resp 15 S; Pulse Ox 99% on R/A; jw7 05:00 BP 165 / 75; Pulse 73; Resp 14 S; Pulse Ox 100% on R/A; jw7 06:30 BP 157 / 91; Pulse 75; Resp 12 S; Pulse Ox 99% on R/A; jw7 03:46 Pain Scale: Adult pf1 Harsh Coma Score: 05:26 Eye Response: spontaneous(4). Motor Response: obeys commands(6). Verbal Response: sp4 oriented(5). Total: 15. ED Course: 03:42 Patient arrived in ED. gm2 03:45 Mohsen Singh MD is Attending Physician. sp4 04:00 Patient has correct armband on for positive identification. Placed in gown. Bed in low jw7 position. Call light in reach. Side rails up X2. Provided Education on: Use of Call Light. 04:00 Arm band placed on. jw7 04:04 Triage completed. pf1 04:16 CT Head Brain wo Cont In Process Unspecified. EDMS 05:00 Assist provider with eye exam. jw7 05:06 Sheila Willingham, RN is Primary Nurse. jw7 05:12 Initiated transfer to [facility], spoke with Zara Alberto. Will need to deny due to wm capacity, but may change after shift change, advised to call back if we can't find placement elsewhere. 05:15 Initial lab(s) drawn, by me, sent to lab. Inserted saline lock: 20 gauge in left 7 antecubital area, using aseptic technique. Blood collected. 05:19 Initiated transfer to [facility], spoke with Catherine Lozada. wm 05:31 Basic Metabolic Panel Sent. jw7 05:31 CBC with Diff Sent. jw7 05:31 LFT's Sent. jw7 05:31 PT-INR Sent. jw7 05:37 Catherine with [facility] called back to do a Doc to Doc. wm 06:11 Catherine called to do another Doc to Doc. wm 06:17 Pt accepted for transfer to [facility] ER by Lala Cook \T\ [id number] per Catherine Lozada. wm 06:25 EMS will be transporting with an ETA to here \T\ [id number]. wm 06:55 Patient transferred, IV remains in place. jw7 Administered Medications: 05:06 Drug: Tetracaine Ophthalmic Drops 0.5 % 1 drops Ophthalmic once Route: Ophthalmic; jw7 Site: both eyes; 06:56 Follow up: Response: No adverse reaction jw7 05:20 Drug: metoCLOPramide IVP 10 mg IVP once; over 1 to 2 minutes Route: IVP; Site: left jw7 antecubital; 06:57 Follow up: Response: No adverse reaction; Marked relief of symptoms jw7 05:20 Drug: morphine IVP or IV 4 mg IVP once over 4 mins Route: IVP; Infused Over: 4 mins; jw7 Site: left antecubital; 06:56 Follow up: Response: No adverse reaction; Marked relief of symptoms; Pain is decreased jw7 Medication: 06:55 VIS not applicable for this client. jw7 Outcome: 05:32 ER care complete, transfer ordered by MD. cosme 06:55 Transferred by [facility] to [facility], jw7 06:55 Condition: stable 06:55 Instructed on the need for transfer, Demonstrated understanding of instructions, 06:57 Patient left the ED. jw7 Signatures: Dispatcher [employer] EDPriscila Harding Jodi, RN RN jw7 Allyson Cavazos RN RN pf1 Mohsen Singh MD MD sp4 Altagracia Gleason 2 Corrections: (The following items were deleted from the chart) 04:07 04:04 PMHx: urolithiasis (kidney); pf1 pf1 05:20 05:12 Initiated transfer to [facility], [facility] [place] [facility]m tomas 06:34 06:33 EMS will be transporting with an ETA to here \T\ 0645 [facility]
--- NOTE | 2023-12-16 05:32 | EDPHYS ---
Physician Documentation [facility] Name: Xavier Houser Age: 83 yrs Sex: Male : 1940 Arrival Date: 12/16/2023 Time: 03:38 Bed 16 Private MD: ED Physician Mohsen Singh HPI: 12/15 03:45 This 83 yrs old Male presents to ER via Unassigned with complaints of Loss Of sp4 Vision, HEAD PAIN ON THE RIGHT SIDE OF HEAD, Nausea/Vomiting. 05:26 This 83 yrs old Male presents to ER via Wheelchair with complaints of Loss Of sp4 Vision, HEAD PAIN ON THE RIGHT SIDE OF HEAD, Nausea/Vomiting. 04:01 Patient presents for pain around the right eye starting 9 PM yesterday also acute sp4 worsening of chronic vision loss in the right eye starting at 9 PM yesterday. . 05:28 Medications include Eliquis 5 mg twice a day, atorvastatin, tramadol, multivitamins. sp4 For atrial fibrillation on chronic anticoagulation. Historical: - Allergies: 04:04 mushrooms; pf1 - Home Meds: 05:31 Eliquis 5 mg oral tablet 1 tab 2 times per day [Active]; tramadol 50 mg Oral tablet jw7 once [Active]; atorvastatin oral [Active]; multivitamin oral [Active]; - PMHx: 04:04 Arthritis; Atrial fibrillation; pf1 04:07 urolithiasis; pf1 - PSHx: 04:04 kidney; pf1 - Immunization history:: Adult Immunizations up to date, Client reports receiving the Crow \T\ Crow single-dose vaccine. Last tetanus immunization: < 5 years ago Flu vaccine is not up to date. - Infectious Disease History:: Denies. - Social history:: Smoking status: Patient denies any tobacco usage or history of. Patient/guardian denies using alcohol, street drugs. - Family history:: not pertinent. ROS: 05:26 Constitutional: Negative for fever, chills, and weight loss, positive for right eye sp4 vision loss, positive pain around the right eye 05:26 All other systems are negative, Exam: 05:26 Constitutional: This is a well developed, well nourished patient who is awake, alert, sp4 and in no acute distress. Head/Face: Normocephalic, atraumatic. Eyes: extra-ocular motions intact. Lids and lashes normal. Conjunctiva and sclera are not injected. Cornea within normal limits. Periorbital areas with no swelling, redness, or edema. Right eye pressure measured at 45, left eye pressure measured at 37. Right eye pupil is nonreactive positive consensual reactivity. ENT: Nares patent. No nasal discharge, no septal abnormalities noted. Tympanic membranes are normal and external auditory canals are clear. Oropharynx with no redness, swelling, or masses, exudates, or evidence of obstruction, uvula midline. Mucous membranes moist. Neck: Trachea midline, no thyromegaly or masses palpated, and no cervical lymphadenopathy. Supple, full range of motion without nuchal rigidity, or vertebral point tenderness. Chest/axilla: Normal chest wall appearance and motion. Nontender with no deformity. No lesions are appreciated. Cardiovascular: Regular rate and rhythm with a normal S1 and S2. No gallops, murmurs, or rubs. Normal PMI, no JVD. No pulse deficits. Respiratory: Lungs have equal breath sounds bilaterally, clear to auscultation and percussion. No rales, rhonchi or wheezes noted. No increased work of breathing, no retractions or nasal flaring. Abdomen/GI: Soft, with normal bowel sounds. No distension or tympany. No guarding or rebound. No evidence of tenderness throughout. Back: No spinal tenderness. No costovertebral tenderness. Skin: Warm, dry with normal turgor. Normal color with no rashes, no lesions, and no evidence of cellulitis. MS/ Extremity: Pulses equal, no cyanosis. Neurovascular intact. Full, normal range of motion. Neuro: Awake and alert, GCS 15, oriented to person, place, time, and situation. Cranial nerves II-XII grossly intact. Motor strength 5/5 in all extremities. Sensory grossly intact. Psych: Awake, alert, with orientation to person, place and time. Behavior, mood, and affect are within normal limits Vital Signs: 03:46 BP 179 / 83; Pulse 71; Resp 16; Temp 97.9; Pulse Ox 100% on R/A; Weight 80.29 kg; Pain pf1 6/10; 04:00 BP 155 / 72; Pulse 65; Resp 15 S; Pulse Ox 99% on R/A; jw7 05:00 BP 165 / 75; Pulse 73; Resp 14 S; Pulse Ox 100% on R/A; jw7 06:30 BP 157 / 91; Pulse 75; Resp 12 S; Pulse Ox 99% on R/A; jw7 03:46 Pain Scale: Adult pf1 Harsh Coma Score: 05:26 Eye Response: spontaneous(4). Motor Response: obeys commands(6). Verbal Response: sp4 oriented(5). Total: 15. MDM: 03:46 Patient medically screened. sp4 05:12 ED course: CLINICAL HISTORY: vision loss COMPARISON: 03/03/2023. TECHNIQUE: CT HEAD sp4 WITHOUT IV CONTRAST on 12/16/2023 3:45 AM CDT This exam was performed according to our departmental dose-optimization program, which includes automated exposure control, adjustment of the mA and/or kV according to patient size and/or use of iterative reconstruction technique. FINDINGS: There is no acute hemorrhage, mass effect or midline shift. Menendez-white differentiation is preserved. There is no hydrocephalus. There is no significant volume loss for age. The calvarium is intact. There is lobulated irregular hyperdense material throughout the posterior right globe. This measures up to 5 mm in thickness. Bilateral lens replacements were performed. The paranasal sinuses are clear. Mastoid air cells are clear. IMPRESSION: Suspect posterior right globe hemorrhage. Electronically signed by: Dennis Davis MD 12/16/2023 04:44 AM. ED course: Right eye pressure measured at 45, left eye pressure measured at 37. . 05:32 Differential diagnosis: Nonspecific abd pain, viral gastroenteritis, gastroenteritis. sp4 Data reviewed: vital signs, nurses notes, old medical records, lab test result(s), radiologic studies, CT scan. ED course: Patient has signs of vitreous hemorrhage on his CAT scan. 5 mm in thickness suspected right globe hemorrhage. Will discuss with facility planner regarding transfer for higher level of care.. 05:42 Consideration of Admission/Observation Escalation of care including sp4 admission/observation considered. Management of patient was discussed with the following: Supervisor [employer]: Consulting facility planner Dr. Davis at [facility] ED course: Patient was discussed with facility planner and accepted for transfer at [facility] for evaluation . 12/15 05:02 Order name: Basic Metabolic Panel sp4 12/15 05:02 Order name: CBC with Diff sp4 12/15 05:02 Order name: LFT's sp4 12/15 05:02 Order name: PT-INR sp4 12/15 03:45 Order name: CT Head Brain wo Cont sp4 12/15 04:49 Order name: Saline Lock; Complete Time: 05:31 sp4 12/15 05:02 Order name: IV Saline Lock; Complete Time: 05:31 sp4 12/15 05:02 Order name: Labs collected and sent; Complete Time: 05: sp4 12/15 05:02 Order name: O2 Per Protocol; Complete Time: 05:31 sp4 12/15 05:02 Order name: O2 Sat Monitoring; Complete Time: 05: sp4 12/15 05:41 Order name: NPO; Complete Time: 05:45 sp4 Administered Medications: 05:06 Drug: Tetracaine Ophthalmic Drops 0.5 % 1 drops Ophthalmic once Route: Ophthalmic; 7 Site: both eyes; 06:56 Follow up: Response: No adverse reaction jw7 05:20 Drug: metoCLOPramide IVP 10 mg IVP once; over 1 to 2 minutes Route: IVP; Site: left jw antecubital; 06:57 Follow up: Response: No adverse reaction; Marked relief of symptoms jw7 05:20 Drug: morphine IVP or IV 4 mg IVP once over 4 mins Route: IVP; Infused Over: 4 mins; jw7 Site: left antecubital; 06:56 Follow up: Response: No adverse reaction; Marked relief of symptoms; Pain is decreased jw7 Disposition Summary: 12/16/23 05:32 Transfer Ordered Notes: Transfer Location: [facility] sp4 Reason: Higher level of care sp4 Condition: Stable sp4 Problem: new sp4 Symptoms: have improved sp4 Accepting Physician: Attending Registered Account Administrator (12/16/23 06:57) jw7 Diagnosis - Vitreous hemorrhage, right eye sp4 Forms: - Medication Reconciliation Form sp4 - SBAR form sp4 Signatures: Dispatcher [employer] EDMS Sheila Willingham RN RN jw7 Allyson Cavazos RN RN pf1 Mohsen Singh MD MD sp4 Corrections: (The following items were deleted from the chart) 04:07 04:04 PMHx: urolithiasis (kidney); pf1 pf1 06:57 05:32 Attending Registered Account Administrator sp4 jw7
[2023-12-16 06:00] LABS: PT Prothrombin Time 16.2 SECONDS (9.5-12.5); Protime INR 1.49
[2023-12-16 06:01] LABS: Absolute Lymphocytes (CBC) 1.5 K/uL (0.7-4.9); Absolute Monocytes 0.8 K/uL (0.1-1.3); Absolute Neutrophil 7.2 K/uL (1.8-8.0); Basophils % 0.5 % (0-1.3); Eosinophils % 0.4 % (0-4.4); Hematocrit 37.4 % (39.6-49.0); Hemoglobin 13.2 g/dL (13.6-17.9); Lymphocytes % 15.7 % (15.3-44.8); MCHC 35.4 g/dL (32.0-36.0); MCV 93.3 fL (80-100); MPV 8.5 fL (7.6-11.3); Monocytes % 8.2 % (3.3-12.3); Neutrophils % 75.2 % (41.7-73.7); Nucleated Red Blood Cells % 0.1 % (0-0); Platelets 235 thou/uL (152-406); RBC Red Blood Cell Count 4.01 M/uL (4.33-5.43); Red Cell Distribution Width 12.9 % (12.1-15.2)
[2023-12-16 06:09] LABS: Albumin 3.8 g/dL (3.4-5.0); Albumin/Globulin Ratio 1.1 (1.1-1.8); Anion Gap 6.9 mEq/L (5.0-15.0); Bilirubin Direct 0.2 mg/dL (0-0.2); Bilirubin Indirect, Calculated 0.5 mg/dL (0.2-0.8); Bilirubin Total 0.7 mg/dL (0.2-1.0); Globulin 3.4 g/dL (2.3-3.5); Potassium 3.9 mEq/L (3.5-5.1); Protein, Total 7.2 g/dL (6.4-8.2)
[2023-12-16 15:22] VITALS: BP 157/91; TEMP 97.9; O2SAT 99
--- NOTE | 2023-12-16 19:34 | RAD REPORT ---
EXAM DESCRIPTION: CT - Head Brain Wo Cont - 12/16/2023 6:43 am CLINICAL HISTORY: Vision loss COMPARISON: 03/03/2023. TECHNIQUE: CT HEAD WITHOUT IV CONTRAST on 12/16/2023 3:45 AM CDT This exam was performed according to our departmental dose-optimization program, which includes autom ated exposure control, adjustment of the mA and/or kV according to patient size and/or use of iterati ve reconstruction technique. FINDINGS: There is no acute hemorrhage, mass effect or midline shift. Menendez-white differentiation is preserved. There is no hydrocephalus. There is no significant volume loss for age. The calvarium is intact. There is lobulated irregular hyperdense material throughout the posterior ri ght globe. This measures up to 5 mm in thickness. Bilateral lens replacements were performed. The par anasal sinuses are clear. Mastoid air cells are clear. IMPRESSION: Suspect posterior right globe hemorrhage. Electronically signed by: Dennis Davis MD 12/16/2023 04:44 AM CDT Due to temporary technical issues with the PACS/Fluency reporting system, reports are being signed by the in house radiologists without review as a courtesy to insure prompt reporting. The interpreting radiologist is fully responsible for the content of the report.
== END 2023-12-16 06:57 | disposition short-term general hospital (02) ==
LOC: ER 03:38
DX: H43.11 Vitreous hemorrhage, right eye (principal); I48.91 Unspecified atrial fibrillation; Z79.01 Long term (current) use of anticoagulants; Z91.018 Allergy to other foods
CPT/HCPCS: 85025; 80048; 36415; 85610; 80076; 70450; 96375; 96374; 99285; J2765

== ENCOUNTER 2023-12-22 05:46 | Emergency (ER) | payer OTHER ==
[2023-12-22] MEDS ORDERED: TETRACAINE HCL 0.5% 4ML OPTH ONE (06:05)
[2023-12-22] MEDS ORDERED: NA CHLORIDE 0.9% 1,000 ML ONE (06:22)
[2023-12-22] MEDS ORDERED: MORPHINE 4 MG/ML SYR ONE (06:22)
[2023-12-22] MEDS ORDERED: NA CHLORIDE 0.9% 500 ML ONE (06:22)
[2023-12-22] MEDS ORDERED: ONDANSETRON 4 MG/2 ML VIAL ONE (06:22)
[2023-12-22 06:37] LABS: Absolute Lymphocytes (CBC) 1.4 K/uL (0.7-4.9); Absolute Monocytes 0.7 K/uL (0.1-1.3); Absolute Neutrophil 11.8 K/uL (1.8-8.0); Basophils % 0.2 % (0-1.3); Eosinophils % 0.2 % (0-4.4); Hematocrit 40.6 % (39.6-49.0); Hemoglobin 13.9 g/dL (13.6-17.9); Lymphocytes % 10.1 % (15.3-44.8); MCH 31.9 pg (27.0-35.0); MCHC 34.2 g/dL (32.0-36.0); MCV 93.5 fL (80-100); MPV 8.5 fL (7.6-11.3); Monocytes % 4.7 % (3.3-12.3); Neutrophils % 84.8 % (41.7-73.7); Platelets 266 thou/uL (152-406); RBC Red Blood Cell Count 4.35 M/uL (4.33-5.43)
--- NOTE | 2023-12-22 06:44 | EDPHYS ---
Physician Documentation [facility] Name: Xavier Houser Age: 83 yrs Sex: Male : 1940 Arrival Date: 12/22/2023 Time: 05:46 Bed 14 Private MD: ED Physician Felipe Davis HPI: 12/21 06:36 This 83 yrs old Male presents to ER via Wheelchair with complaints of michael Vomiting, Headache - eye pressure. 06:36 The patient presents to the emergency department with nausea, vomiting. Onset: The michael symptoms/episode began/occurred yesterday. Historical: - Allergies: 06:09 mushrooms; cm10 06:10 Blueberry; cm10 - PMHx: 06:09 Arthritis; Atrial fibrillation; Urolithiasis; retinal detachment- right eye; cm10 - PSHx: 06:09 kidney; cm10 - Immunization history:: Adult Immunizations up to date. - Infectious Disease History:: Denies. - Social history:: Smoking status: Patient denies any tobacco usage or history of. ROS: 06:37 Constitutional: Negative for fever, chills, and weight loss, ENT: Negative for injury, michael pain, and discharge, Neck: Negative for injury, pain, and swelling, Cardiovascular: Negative for chest pain, palpitations, and edema, Respiratory: Negative for shortness of breath, cough, wheezing, and pleuritic chest pain, Back: Negative for injury and pain, : Negative for injury, bleeding, discharge, and swelling, MS/Extremity: Negative for injury and deformity, Skin: Negative for injury, rash, and discoloration, Psych: Negative for depression, anxiety, suicide ideation, homicidal ideation, and hallucinations, Allergy/Immunology: Negative for hives, rash, and allergies, Endocrine: Negative for neck swelling, polydipsia, polyuria, polyphagia, and marked weight changes, Hematologic/Lymphatic: Negative for swollen nodes, abnormal bleeding, and unusual bruising, 06:37 Eyes: Positive for 06:37 Abdomen/GI: Positive for nausea and vomiting, Exam: 06:37 Constitutional: This is a well developed, well nourished patient who is awake, alert, michael and in no acute distress. Head/Face: Normocephalic, atraumatic. ENT: Nares patent. No nasal discharge, no septal abnormalities noted. Tympanic membranes are normal and external auditory canals are clear. Oropharynx with no redness, swelling, or masses, exudates, or evidence of obstruction, uvula midline. Mucous membranes moist. Neck: Trachea midline, no thyromegaly or masses palpated, and no cervical lymphadenopathy. Supple, full range of motion without nuchal rigidity, or vertebral point tenderness. No Meningismus. Chest/axilla: Normal chest wall appearance and motion. Nontender with no deformity. No lesions are appreciated. Cardiovascular: Regular rate and rhythm with a normal S1 and S2. No gallops, murmurs, or rubs. Normal PMI, no JVD. No pulse deficits. Respiratory: Lungs have equal breath sounds bilaterally, clear to auscultation and percussion. No rales, rhonchi or wheezes noted. No increased work of breathing, no retractions or nasal flaring. Abdomen/GI: Soft, non-tender, with normal bowel sounds. No distension or tympany. No guarding or rebound. No evidence of tenderness throughout. Back: No spinal tenderness. No costovertebral tenderness. Full range of motion. Male : Normal genitalia with no discharge or lesions. Skin: Warm, dry with normal turgor. Normal color with no rashes, no lesions, and no evidence of cellulitis. MS/ Extremity: Pulses equal, no cyanosis. Neurovascular intact. Full, normal range of motion. Neuro: Awake and alert, GCS 15, oriented to person, place, time, and situation. Cranial nerves II-XII grossly intact. Motor strength 5/5 in all extremities. Sensory grossly intact. Cerebellar exam normal. Normal gait. Psych: Awake, alert, with orientation to person, place and time. Behavior, mood, and affect are within normal limits. 06:37 Eyes: Periorbital structures: appear normal, no acute changes, Pupils: equal, round, and reactive to light and accomodation, [place], 07:22 Eyes: Anterior chamber: normal, no hyphema, tonopen 22 x2. michael Vital Signs: 06:07 BP 194 / 98; Pulse 68; Resp 18; Temp 98.2; Pulse Ox 99% on R/A; Weight 75.75 kg (M); cm10 Height 5 ft. 6 in. ; Pain 10/10; 06:50 BP 176 / 89; Pulse 62; Resp 12 S; Pulse Ox 95% on R/A; jw7 07:15 BP 192 / 81; Pulse 65; Resp 22; Pulse Ox 98% ; bp 08:28 BP 175 / 74; Pulse 64; Resp 14; Pulse Ox 99% ; bp 06:07 Body Mass Index 26.95 (75.75 kg, 167.64 cm) cm10 06:07 Pain Scale: Adult cm10 Mentor Coma Score: 06:40 Eye Response: spontaneous(4). Motor Response: obeys commands(6). Verbal Response: michael oriented(5). Total: 15. MDM: 05:59 Patient medically screened. michael 06:40 Data reviewed: vital signs, nurses notes, lab test result(s), EKG, radiologic studies, michael CT scan. Consideration of Admission/Observation Escalation of care including admission/observation considered. I considered the following discharge prescriptions or medication management in the emergency department Medications were administered in the Emergency Department. See MAR. Independent interpretation of the following test(s) in the Emergency Department EKG: See my EKG interpretation above. Test considered but Not performed: MRI: NO MRI BRAIN. Care significantly affected by the following chronic conditions: Hypertension, A FIB, DETACHED RETINA. 12/21 05:50 Order name: Basic Metabolic Panel; Complete Time: 07:19 michael 12/21 05:50 Order name: CBC with Diff; Complete Time: 07:19 michael 12/21 05:50 Order name: LFT's; Complete Time: 07:19 12/21 05:50 Order name: Magnesium; Complete Time: 07:19 12/21 05:50 Order name: NT PRO-BNP; Complete Time: 07:19 michael 12/21 05:50 Order name: PT-INR 12/21 05:50 Order name: Troponin HS; Complete Time: 07:19 12/21 05:50 Order name: Lipase; Complete Time: 07:19 michael 12/21 05:50 Order name: XRAY Chest (1 view) 12/21 05:50 Order name: CT Head Brain wo Cont 12/21 05:50 Order name: EKG; Complete Time: 05:51 12/21 05:50 Order name: Cardiac monitoring; Complete Time: 06:16 michael 12/21 05:50 Order name: EKG - Nurse/Tech; Complete Time: 06:16 12/21 05:50 Order name: IV Saline Lock; Complete Time: 06:37 [facility] 12/21 05:50 Order name: Labs collected and sent; Complete Time: 06:37 [facility] 12/21 05:50 Order name: O2 Per Protocol; Complete Time: 06:16 [facility] 12/21 05:50 Order name: O2 Sat Monitoring; Complete Time: 06:16 [facility] 12/21 07:21 Order name: Misc. Order: Atropine 1% 1 drop to right eye; Complete Time: 08:28 [facility] 12/21 07:21 Order name: Misc. Order: patch right eye; Complete Time: 08:27 [facility] Administered Medications: 06:35 Drug: Tetracaine Ophthalmic Drops 0.5 % 1 drops Ophthalmic once Route: Ophthalmic; [facility] Site: right eye; 06:36 Drug: NS 0.9% IV 500 ml IV at bolus once Route: IV; Rate: bolus; Site: right forearm; [facility] 07:56 Follow up: IV Status: Completed infusion; IV Intake: 500ml bp 06:36 Drug: NS 0.9% IV 1000 ml IV at 125 ml/hr continuous Route: IV; Rate: 125 ml/hr; Site: [facility] right forearm; 07:56 Follow up: IV Status: Completed infusion; IV Intake: 1000ml bp 06:36 Drug: Ondansetron IVP 4 mg IVP once; over 2 minutes Route: IVP; Site: right forearm; [facility] 07:55 Follow up: Response: No adverse reaction bp 06:36 Drug: morphine IVP or IV 4 mg IVP once over 4 mins Route: IVP; Infused Over: 4 mins; [facility] Site: right forearm; 07:56 Follow up: Response: No adverse reaction bp 07:55 Drug: Hydrocodone-Acetaminophen PO (7.5 mg-325 mg) 1 tabs PO once Route: PO; bp 07:56 Follow up: Response: No adverse reaction bp Disposition Summary: 12/22/23 07:22 Discharge Ordered Notes: Location: Home michael Problem: new(12/22/23 07:22) michael Symptoms: have improved(12/22/23 07:22) michael Condition: Fair(12/22/23 07:22) michael Diagnosis - Ocular pain, right eye - CHRONIC DETACHED RETINA,BLIND PAINFUL EYE(12/22/23 07:22) michael Followup: michael - With: Private Physician - When: 2 - 3 days - Reason: Recheck today's complaints, Continuance of care, Re-evaluation by your physician Followup: michael - With: Travon Rubin MD - When: Today - Reason: Recheck today's complaints, Re-evaluation by your physician Discharge Instructions: - Discharge Summary Sheet michael - Retinal Detachment michael - Eye Patch, Adult michael Forms: - Medication Reconciliation Form michael - Antibiotic Education michael - Prescription Opioid Use michael - Patient Portal Instructions [facility] - Leadership Thank You Letter [facility] Prescriptions: - acetaminophen-codeine 300-30 mg Oral tablet - take 1 tablet ORAL route every 6 hours as needed for pain; 24 tablet; Refills: michael 0, Product Selection Permitted - atropine 1 % Ophthalmic drops - instill 1 drop OPHTHALMIC route every 12 hours FOR PAIN, RIGHT EYE ONLY; 10 michael milliliter; Refills: 0, Product Selection Permitted - ondansetron 4 mg Oral Tablet,disintegrating - take 1 tablet ORAL route every 8 hours for 5 days as needed for nausea and michael vomiting; 20 tablet; Refills: 0, Product Selection Permitted Signatures: Dispatcher [employer] EDMS Felipe Davis MD MD cha Peltier, Brian, RN RN Sheila Buchanan, RN RN jw7 Teresa Senior, RN RN cm10 Corrections: (The following items were deleted from the chart) 05:51 05:51 BASIC METABOLIC PANEL+C.LAB.BRZ ordered. EDMS EDMS 05:51 05:51 CBC+H.LAB.BRZ ordered. EDMS EDMS 05:51 05:51 HEPATIC FUNCTION+C.LAB.BRZ ordered. EDMS EDMS 05:51 05:51 MAGNESIUM+C.LAB.BRZ ordered. EDMS EDMS 05:51 05:51 PROBNP+C.LAB.BRZ ordered. EDMS EDMS 05:51 05:51 PROTIME (+INR)+COAG.LAB.BRZ ordered. EDMS EDMS 05:51 05:51 Troponin High Sensitivity+C.LAB.BRZ ordered. EDMS EDMS 05:51 05:51 LIPASE+C.LAB.BRZ ordered. EDMS EDMS 05:51 05:51 Urinalysis+U.LAB.BRZ ordered. EDMI EDMS 07:09 06:43 TO [facility] 07:09 06:43 [facility] michael rodriguez : 06:43 Higher level of care michael rodriguez 07: 06:43 Fair michael rodriguez 07: 06:43 new michael rodriguez 06:43 have worsened michael rodriguez : 06:43 Ocular pain, right eye - DETACHED RETINA, VITREOUS HEMORRHAGE michael rodriguez
--- NOTE | 2023-12-22 06:44 | ER ---
Nurse's Notes [facility] Name: Xavier Houser Age: 83 yrs Sex: Male : 1940 Arrival Date: 12/22/2023 Time: 05:46 Bed 14 Private MD: Diagnosis: Ocular pain, right eye-CHRONIC DETACHED RETINA,BLIND PAINFUL EYE Presentation: 12/21 06:07 Chief complaint: Patient states: Right sided headache and eye pressure as well as cm10 vomiting onset last night. Pt was seen here last week and states that he had high pressure in his right eye and was transferred due to having a retinal detachment. Coronavirus screen: Client denies travel out of the [place] in the last 14 days. At this time, the client does not indicate any symptoms associated with coronavirus-19. Ebola Screen: Patient denies travel to an Ebola-affected area in the 21 days before illness onset. No symptoms or risks identified at this time. Initial Sepsis Screen: Does the patient meet any 2 criteria? No. Patient's initial sepsis screen is negative. Does the patient have a suspected source of infection? No. Patient's initial sepsis screen is negative. Risk Assessment: Do you want to hurt yourself or someone else? Patient reports no desire to harm self or others. Onset of symptoms was December 22, 2023. 06:07 Method Of Arrival: Wheelchair cm10 06:07 Acuity: DAISY 2 cm10 Triage Assessment: 06:19 GI: Reports nausea, vomiting. 7 Historical: - Allergies: 06:09 mushrooms; cm10 06:10 Blueberry; cm10 - PMHx: 06:09 Arthritis; Atrial fibrillation; Urolithiasis; retinal detachment- right eye; cm10 - PSHx: 06:09 kidney; cm10 - Immunization history:: Adult Immunizations up to date. - Infectious Disease History:: Denies. - Social history:: Smoking status: Patient denies any tobacco usage or history of. Screenin:18 [facility] ED Fall Risk Assessment (Adult) History of falling in the last 3 months, 7 including since admission No falls in past 3 months (0 pts) Confusion or Disorientation No (0 pts) Intoxicated or Sedated No (0 pts) Impaired Gait No (0 pts) Mobility Assist Device Used No (0 pt) Altered Elimination No (0 pt) Score/Fall Risk Level 0 - 2 = Low Risk Oriented to surroundings, Maintained a safe environment, Educated pt \T\ family on fall prevention, incl call for assistance when getting out of bed. Abuse screen: Denies threats or abuse. Denies injuries from another. Nutritional screening: No deficits noted. Tuberculosis screening: No symptoms or risk factors identified. Assessment: 06:16 General: Appears in no apparent distress. uncomfortable, Behavior is calm, cooperative. jw7 Pain: Complains of pain in forehead and right eye Pain does not radiate. Pain currently is 10 out of 10 on a pain scale. Quality of pain is described as pressure, throbbing, Pain began gradually, Is continuous. Neuro: Level of Consciousness is awake, alert, obeys commands, Oriented to person, place, time, situation. Cardiovascular: Heart tones S1 S2 present Capillary refill < 3 seconds Clubbing of nail beds is absent JVD is absent Patient's skin is warm and dry. Respiratory: Airway is patent Trachea midline Respiratory effort is even, unlabored, Respiratory pattern is regular, symmetrical, Breath sounds are clear bilaterally. GI: Abdomen is flat, non-distended, Bowel sounds present X 4 quads. Abd is soft and non tender X 4 quads. : No deficits noted. No signs and/or symptoms were reported regarding the genitourinary system. EENT: No deficits noted. No signs and/or symptoms were reported regarding the EENT system. Derm: Skin is intact, is healthy with good turgor, Skin is dry, Skin is normal, Skin temperature is warm. Musculoskeletal: Circulation, motion, and sensation intact. Range of motion: intact in all extremities. 07:15 Reassessment: RECD REPORT FROM DEWEY VALLES. 83YO P/W R EYE PAIN, RECENT H/O TRANSFER FOR bp INCREASED INTRA-OCULAR PRESSURE. 07:30 Reassessment: DC ON HOLD FOR MEDICATION FROM PHARMACY. bp 08:28 Reassessment: PT DC WITH FAMILY, TO F/U WITH OPTHO \T\ 1030 AT CLINIC. bp Vital Signs: 06:07 BP 194 / 98; Pulse 68; Resp 18; Temp 98.2; Pulse Ox 99% on R/A; Weight 75.75 kg (M); cm10 Height 5 ft. 6 in. ; Pain 10/10; 06:50 BP 176 / 89; Pulse 62; Resp 12 S; Pulse Ox 95% on R/A; jw7 07:15 BP 192 / 81; Pulse 65; Resp 22; Pulse Ox 98% ; bp 08:28 BP 175 / 74; Pulse 64; Resp 14; Pulse Ox 99% ; bp 06:07 Body Mass Index 26.95 (75.75 kg, 167.64 cm) cm10 06:07 Pain Scale: Adult cm10 [place] Coma Score: 06:40 Eye Response: spontaneous(4). Motor Response: obeys commands(6). Verbal Response: michael oriented(5). Total: 15. ED Course: 05:48 Patient arrived in ED. ra3 05:49 Felipe Davis MD is Attending Physician. michael 06:09 Triage completed. cm10 06:10 Arm band placed on Patient placed in an exam room, on a stretcher. cm10 06:15 Sheila Willingham RN is Primary Nurse. jw7 06:18 Patient has correct armband on for positive identification. Bed in low position. Call jw7 light in reach. Provided Education on: Use of Call Light. 06:21 XRAY Chest (1 view) In Process Unspecified. EDMS 06:27 EKG done, by hvac refrigeration technician. reviewed by Felipe Davis MD. oe 06:31 Inserted saline lock: 20 gauge in right forearm, using aseptic technique. Blood oe collected. 06:54 CT Head Brain wo Cont In Process Unspecified. EDMS 07:15 Primary Nurse role handed off by Sheila Willingham, RN bp 07:15 Red Pearson, RN is Primary Nurse. bp 07:22 Travon Rubin MD is Referral Physician. michael 08:29 No provider procedures requiring assistance completed. IV discontinued, intact, bp bleeding controlled, No redness/swelling at site. Pressure dressing applied. Administered Medications: 06:35 Drug: Tetracaine Ophthalmic Drops 0.5 % 1 drops Ophthalmic once Route: Ophthalmic; jw7 Site: right eye; 06:36 Drug: NS 0.9% IV 500 ml IV at bolus once Route: IV; Rate: bolus; Site: right forearm; jw7 07:56 Follow up: IV Status: Completed infusion; IV Intake: 500ml bp 06:36 Drug: NS 0.9% IV 1000 ml IV at 125 ml/hr continuous Route: IV; Rate: 125 ml/hr; Site: [facility] right forearm; 07:56 Follow up: IV Status: Completed infusion; IV Intake: 1000ml bp 06:36 Drug: Ondansetron IVP 4 mg IVP once; over 2 minutes Route: IVP; Site: right forearm; jw7 07:55 Follow up: Response: No adverse reaction bp 06:36 Drug: morphine IVP or IV 4 mg IVP once over 4 mins Route: IVP; Infused Over: 4 mins; jw7 Site: right forearm; 07:56 Follow up: Response: No adverse reaction bp 07:55 Drug: Hydrocodone-Acetaminophen PO (7.5 mg-325 mg) 1 tabs PO once Route: PO; bp 07:56 Follow up: Response: No adverse reaction bp Intake: 07:56 IV: 500ml; Total: 500ml. bp 07:56 IV: 1000ml; Total: 1500ml. bp Outcome: 06:43 ER care complete, transfer ordered by . michael 07:22 Discharge ordered by MD. michael 08:29 Discharged to home via wheelchair, with family, bp 08:29 Condition: stable 08:29 Discharge instructions given to patient, family, Instructed on discharge instructions, follow up and referral plans. medication usage, Demonstrated understanding of instructions, follow-up care, medications, Prescriptions given X 3, 08:30 Patient left the ED. bp Signatures: Dispatcher [employer] EDMS Felipe Davis MD MD cha Espinosa, Orlando oe Peltier, Brian, RN RN Sheila Buhcanan RN REENA jw7 Teresa Senior RN RN Myrna Duncan 3 Corrections: (The following items were deleted from the chart) 06:36 06:36 morphine IVP or IV 4 mg IVP in right antecubital over 4 mins 7 jw7 06:36 06:36 Ondansetron IVP 4 mg IVP in right antecubital jw7 jw7
[2023-12-22 07:10] LABS: Albumin 3.8 g/dL (3.4-5.0); Anion Gap 9.8 mEq/L (5.0-15.0); Bilirubin Direct 0.3 mg/dL (0-0.2); Bilirubin Indirect, Calculated 0.8 mg/dL (0.2-0.8); Bilirubin Total 1.1 mg/dL (0.2-1.0); Globulin 3.8 g/dL (2.3-3.5); Magnesium 2.1 mg/dL (1.6-2.4); Potassium 3.8 mEq/L (3.5-5.1); Protein, Total 7.6 g/dL (6.4-8.2); Troponin High Sensitivity 7.4 pg/mL (<58.9)
--- NOTE | 2023-12-22 07:19 | RAD REPORT ---
EXAM DESCRIPTION: CT - Head Brain Wo Cont - 12/22/2023 6:52 am CLINICAL HISTORY: Headache COMPARISON: December 16, 2023 TECHNIQUE: Computed axial tomography of the head was obtained. IV contrast was not requested. All CT scans are performed using dose optimization technique as appropriate and may include automated exposure control or mA/KV adjustment according to patient size. FINDINGS: An intracranial bleed is not seen The ventricles are normal in caliber No significant hypodense areas within the brain visualized No extra-axial fluid collection is noted. Right retinal detachment with blood in the right globe. The blood has increased since prior exam Fluid within the sinuses/ mastoids is not seen IMPRESSION: No acute intracranial abnormality is seen If patient's symptoms persist MRI of the brain would be recommended Right retinal detachment with blood in the right globe
[2023-12-22] MEDS ORDERED: HYDROCODONE/APAP 7.5/325 MG TAB ONE (07:51)
[2023-12-22] MEDS ORDERED: ATROPINE 1% OPTH DROPS 5ML OPTH ONE (08:15)
[2023-12-22 08:39] VITALS: BP 175/74; TEMP 98.2; O2SAT 99
--- NOTE | 2023-12-22 11:50 | RAD REPORT ---
EXAM DESCRIPTION: RAD - Chest Single View - 12/22/2023 6:19 am CLINICAL HISTORY: ABDOMINAL DISTENTION COMPARISON: None TECHNIQUE: Single AP view of the chest. FINDINGS: Lung volumes adequate. Cardiac silhouette is normal in size. No pneumothorax. Small bilateral pleural effusions. Minimal bibasilar reticular opacities. No acute bony finding. Degenerative changes of the visualized spine and bilateral shoulders. IMPRESSION: 1. Small bilateral pleural effusions. 2. Minimal bibasilar reticular opacities, likely atelectasis. Superimposed infectious/inflammatory infiltrate not excluded. Electronically signed by: Kaye Marr MD 12/22/2023 06:53 AM CDT Due to temporary technical issues with the PACS/Fluency reporting system, reports are being signed by the in house radiologists without review as a courtesy to insure prompt reporting. The interpreting radiologist is fully responsible for the content of the report
[2023-12-22 12:09] LABS: PT Prothrombin Time 15.1 SECONDS (9.5-12.5); Protime INR 1.3
--- NOTE | 2023-12-23 16:46 | EKG ---
Test Date: 2023-12-22 Test Time: 06:20:05 [employer] Worker: BRYN MEASUREMENT RESULTS: Intervals: Rate: 68 MI: 198 QRSD: 94 QT: 422 QTc: 448 Dana: P: 78 MI: 198 QRS: 30 T: 56 INTERPRETIVE STATEMENTS: Normal sinus rhythm Normal ECG Compared to ECG 01/02/2020 11:37:19 Uncertain supraventricular rhythm no longer present Myocardial infarct finding no longer present Electronically Signed On 12-23-23 16:42:20 CDT by Bertin Bullard
== END 2023-12-22 08:30 | disposition home or self-care (01) ==
LOC: ER 05:46
DX: H33.8 Other retinal detachments (principal); H54.61 Unqualified visual loss, right eye, normal vision left eye; R51.9 Headache, unspecified; Z91.018 Allergy to other foods
CPT/HCPCS: 93005; 85025; 80048; 36415; 83735; 85610; 80076; 84484; 83690; 83880; 70450; 71045; J2405; J7040; J7030; 96361; 96374; 96375; 99284

== ENCOUNTER 2024-10-23 09:02 | Day surgery (SDC) | payer OTHER ==
[2024-10-23 09:36] LABS: Absolute Eosinophils 0.1 K/uL (0-0.5); Absolute Lymphocytes (CBC) 1.8 K/uL (0.7-4.9); Absolute Monocytes 0.8 K/uL (0.1-1.3); Absolute Neutrophil 6.4 K/uL (1.8-8.0); Basophils % 0.5 % (0-1.3); Eosinophils % 1.5 % (0-4.4); Hematocrit 36.1 % (39.6-49.0); Hemoglobin 12.5 g/dL (13.6-17.9); Lymphocytes % 19.4 % (15.3-44.8); MCH 32.3 pg (27.0-35.0); MCHC 34.5 g/dL (32.0-36.0); MCV 93.7 fL (80-100); MPV 8.2 fL (7.6-11.3); Monocytes % 9.2 % (3.3-12.3); Neutrophils % 69.4 % (41.7-73.7); Nucleated Red Blood Cells % 0.1 % (0-0); Platelets 252 thou/uL (152-406); RBC Red Blood Cell Count 3.85 M/uL (4.33-5.43); Red Cell Distribution Width 13.3 % (12.1-15.2)
[2024-10-23 09:39] LABS: PT Prothrombin Time 11.8 SECONDS (10.0-13.0); PTT, Activated Partial Thromb 30.3 SECONDS (24.3-36.9); Protime INR 1.04
[2024-10-23 09:46] LABS: Albumin 3.4 g/dL (3.4-5.0); Anion Gap 8.6 mEq/L (5.0-15.0); Bilirubin Direct 0.2 mg/dL (0-0.2); Bilirubin Indirect, Calculated 0.2 mg/dL (0.2-0.8); Bilirubin Total 0.4 mg/dL (0.2-1.0); Globulin 3.3 g/dL (2.3-3.5); Potassium 3.6 mEq/L (3.5-5.1); Protein, Total 6.7 g/dL (6.4-8.2)
[2024-10-23 10:37] VITALS: BMI 25.8
--- NOTE | 2024-10-23 12:14 | RAD REPORT ---
PROCEDURE: FLUOROSCOPY GUIDED LUMBAR PUNCTURE CLINICAL INDICATION: LP memory loss COMPLICATIONS: No immediate complications. PROCEDURE DETAILS: Consent: Informed consent for the procedure including risks, benefits and alternatives was obtained a nd time-out was performed prior to the procedure. Preparation: The patient was positioned prone on the fluoroscopic table. Appropriate area of the back was prepared and draped using all elements of maximal sterile barrier technique including sterile gloves, sterile gown, cap, mask, large sterile sheet, hand hygiene and cutaneous antisepsis with 2% c hlorhexidine. Imaging prior to procedure: Plain radiographs of the lumbar spine. Procedure: Local anesthesia was administered. Under fluoroscopic guidance, a spinal needle was advanc ed into the subarachnoid space at the level of L3-4. Fluid obtained: 10 cc of clear CSF Opening pressure: Subjectively normal. Fluoroscopy time: 1 minute Estimated blood loss: Less than 10 mL. IMPRESSION: Technically successful fluoroscopic-guided lumbar puncture as detailed.
[2024-10-23 13:02] LABS: CSF Glucose 57 mg/dL (40-70)
[2024-10-23 13:06] LABS: Fluid Total Volume 11 ml; Tube # #3
[2024-10-23 13:07] LABS: Appearance CLEAR (CLEAR); Body Fluid Source CSF; Body Fluid WBC 2 /mm^3; Color of Supernate Not Xanthochromic (Not Xantho); Color of fluid Colorless (COLORLESS)
[2024-10-23 14:12] VITALS: BP 145/63; TEMP 97.9; O2SAT 100
== END 2024-10-23 13:53 | disposition home or self-care (01) ==
LOC: RAD 09:02 → DS 13:53
PROVIDERS: ATTEND Psychiatry & Neurology Neurology with Special Qualifications in Child Neurology
PROC: 009U3ZX Drainage of Spinal Canal, Percutaneous Approach, Diagnostic (ICD-10-PCS; principal; 2024-10-23)
PROC: B01BZZZ Fluoroscopy of Spinal Cord (ICD-10-PCS; 2024-10-23)
DX: F03.90 Unspecified dementia, unspecified severity, without behavioral disturbance, psychotic disturbance, mood disturbance, and anxiety (principal); M47.12 Other spondylosis with myelopathy, cervical region; I48.91 Unspecified atrial fibrillation; Z72.89 Other problems related to lifestyle
CPT/HCPCS: 36415; 62328; 77003; 80048; 80076; 82542; 82945; 84157; 85025; 85610; 85730; 89050